=== PATIENT | male | born 1985 | race Caucasian/White ===

== ENCOUNTER 2016-02-23 21:20 | Inpatient (IN) | payer MEDICARE, OTHER, MEDICAID ==
[~2016-02-23] VITALS: Ht 175.3 cm; Wt 86.5 kg
[~2016-02-23 21:20] MED LIST: CHLO100T24 PO; CLON.1 PO; CLON.2 PO; DIVA500T52 PO; DOCU250C91 PO; HYDR25TA PO; SIMV-259 PO; TOPI200T PO; TRIH5TAB2 PO; VITAD1000 PO
[2016-02-23] MEDS ORDERED: TRIHEXYPHENIDYL HCL 5 MG TABLET PO SCH (22:45)
[2016-02-23] MEDS ORDERED: DIVALPROEX SODIUM 500 MG ER TABLET PO SCH (22:45)
[2016-02-24 01:02] LABS: BASOPHILS % (AUTO) 0.5 % (0.0-2.0); EOSINOPHILS % (AUTO) 1.6 % (1.0-6.0); HEMATOCRIT 42.6 % (41-53); HEMOGLOBIN 14.3 g/dL (13.5-17.5); LYMPHOCYTES # (AUTO) 1.7 K/uL (1.0-4.8); LYMPHOCYTES % (AUTO) 24.6 % (22.0-44.0); MEAN CORPUSCULAR HEMOGLOBIN 31.7 pg (26.0-34.0); MEAN CORPUSCULAR HGB CONC 33.6 G/dL (31.0-37.0); MEAN CORPUSCULAR VOLUME 94 fL (80-100); MONOCYTES # (AUTO) 0.8 K/uL (0.1-1.0); MONOCYTES % (AUTO) 11.8 % (2.0-9.0); NEUTROPHILS # (AUTO) 4.2 K/uL (1.8-7.7); NEUTROPHILS % (AUTO) 61.5 % (40.0-70.0); PLATELET COUNT (AUTO) 213 K/uL (150-450); RED BLOOD CELL COUNT(AUTO) 4.52 MIL/uL (4.50-5.90); RED CELL DISTRIBUTION WIDTH 12.9 % (11.5-14.5); WHITE BLOOD COUNT (AUTO) 6.9 K/uL (4.5-11.0)
[2016-02-24 01:11] LABS: ANION GAP 10 mmol/L (8-16); CALCIUM, TOTAL 8.9 mg/dL (8.8-10.5); CARBON DIOXIDE 27 mmol/L (22-29); CHLORIDE 105 mmol/L (98-107); CREATININE 1.04 mg/dL (0.60-1.30); GLOMERULAR FILTR. RATE CALC > 60 mL/min (>60); POTASSIUM 3.8 mmol/L (3.5-5.1); SODIUM SERUM 142 mmol/L (136-145); UREA NITROGEN, BLOOD 13 mg/dL (7-18)
[2016-02-24 01:17] LABS: ALANINE AMINOTRANSFERASE 18 U/L (12-78); ALBUMIN 3.3 g/dL (3.4-5.0); ASPARTATE AMINOTRANSFERASE 16 U/L (15-37); BILIRUBIN,TOTAL 0.3 mg/dL (0.1-1.0); TOTAL PROTEIN, SERUM 7.4 g/dL (6.4-8.2)
[2016-02-24] MEDS: DIVALPROEX SODIUM 500 MG ER TABLET PO SCH ×2 (07:52→20:53)
[2016-02-24] MEDS: ChlorproMAZINE HCL 100 MG TABLET PO SCH (07:52)
[2016-02-24] MEDS: TOPIRAMATE 100 MG TABLET PO SCH ×2 (07:52→17:00)
[2016-02-24] MEDS: TRIHEXYPHENIDYL HCL 5 MG TABLET PO SCH ×2 (08:54→17:00)
[2016-02-24] MEDS ORDERED: ChlorproMAZINE HCL 100 MG TABLET PO SCH (13:00)
[2016-02-24 16:00] VITALS: BP 132/71
[2016-02-24] MEDS ORDERED: TOPIRAMATE 100 MG TABLET PO SCH (17:00)
[2016-02-24] MEDS ORDERED: INFLUENZA VIRUS VACCINE QVS 2016-17 (3YR+)/PF 60 MCG/0.5 ML SYRINGE IM ONE (19:15)
[2016-02-25] MEDS: ChlorproMAZINE HCL 100 MG TABLET PO SCH ×2 (06:53→12:45)
[2016-02-25] MEDS: TOPIRAMATE 100 MG TABLET PO SCH ×2 (06:54→16:43)
[2016-02-25] MEDS: DIVALPROEX SODIUM 500 MG ER TABLET PO SCH ×2 (06:54→20:52)
[2016-02-25 08:13] VITALS: BP 121/91
[2016-02-25] MEDS ORDERED: MAGNESIUM HYDROXIDE SUSPENSION 30 ML UDCUP PO PRN (08:15)
[2016-02-25] MEDS ORDERED: MAG HYDROX/AL HYDROX/SIMETH ES 30 ML SUSPENSION UDCUP PO PRN (08:15)
[2016-02-25] MEDS ORDERED: BACITRACIN 28.4 GM OINTMENT TP PRN (08:15)
[2016-02-25] MEDS ORDERED: PETROLATUM,WHITE 71 GM JELLY TP PRN (08:15)
[2016-02-25] MEDS ORDERED: ALBUTEROL SULFATE HFA 90 MCG/PUFF 8 GM INHALER IH PRN (08:15)
[2016-02-25] MEDS ORDERED: CloNIDine HCL 0.1 MG TABLET PO PRN (08:15)
[2016-02-25] MEDS ORDERED: BENZOCAINE/MENTHOL LOZENGE [8 LOZENGES/PACKET] MM PRN (08:15)
[2016-02-25] MEDS ORDERED: ACETAMINOPHEN 325 MG TABLET PO PRN (08:15)
[2016-02-25] MEDS: TRIHEXYPHENIDYL HCL 5 MG TABLET PO SCH ×2 (08:37→16:43)
[2016-02-25] MEDS: CHOLECALCIFEROL (VIT D3) 1,000 UNITS TABLET PO SCH (08:38)
[2016-02-25 16:30] VITALS: BP 119/74
[2016-02-26] MEDS ORDERED: -PHARMACY VACCINE NOTE- MISC ONE ×2 (05:30)
[2016-02-26] MEDS: ChlorproMAZINE HCL 100 MG TABLET PO SCH ×2 (06:55→13:03)
[2016-02-26] MEDS: TOPIRAMATE 100 MG TABLET PO SCH ×2 (06:56→18:00)
[2016-02-26] MEDS: DIVALPROEX SODIUM 500 MG ER TABLET PO SCH ×2 (06:56→20:08)
[2016-02-26 08:10] VITALS: BP 130/92
[2016-02-26] MEDS: CHOLECALCIFEROL (VIT D3) 1,000 UNITS TABLET PO SCH (08:10)
[2016-02-26] MEDS: TRIHEXYPHENIDYL HCL 5 MG TABLET PO SCH ×2 (08:10→18:00)
[2016-02-26] MEDS: LORazepam 2 MG TABLET PO PRN (08:11)
[2016-02-26 16:30] VITALS: BP 136/86
[2016-02-27] MEDS: ChlorproMAZINE HCL 100 MG TABLET PO SCH ×2 (06:57→13:17)
[2016-02-27] MEDS: TOPIRAMATE 100 MG TABLET PO SCH ×2 (06:57→16:56)
[2016-02-27] MEDS: DIVALPROEX SODIUM 500 MG ER TABLET PO SCH ×2 (06:57→20:25)
[2016-02-27 08:00] VITALS: BP 135/90
[2016-02-27] MEDS: CHOLECALCIFEROL (VIT D3) 1,000 UNITS TABLET PO SCH (08:11)
[2016-02-27] MEDS: TRIHEXYPHENIDYL HCL 5 MG TABLET PO SCH ×2 (08:11→16:56)
[2016-02-27] MEDS: LORazepam 2 MG TABLET PO PRN ×2 (08:11→13:17)
[2016-02-27] MEDS: QUEtiapine FUMARATE 100 MG TABLET PO PRN ×2 (08:11→13:18)
[2016-02-27 16:15] VITALS: BP 145/78
[2016-02-28] MEDS: TOPIRAMATE 100 MG TABLET PO SCH ×2 (06:19→16:18)
[2016-02-28] MEDS: ChlorproMAZINE HCL 100 MG TABLET PO SCH ×2 (06:19→12:44)
[2016-02-28] MEDS: DIVALPROEX SODIUM 500 MG ER TABLET PO SCH ×2 (06:19→20:06)
[2016-02-28 08:00] VITALS: BP 128/72
[2016-02-28] MEDS: LORazepam 2 MG TABLET PO PRN (08:08)
[2016-02-28] MEDS: QUEtiapine FUMARATE 100 MG TABLET PO PRN (08:08)
[2016-02-28] MEDS: CHOLECALCIFEROL (VIT D3) 1,000 UNITS TABLET PO SCH (08:08)
[2016-02-28] MEDS: TRIHEXYPHENIDYL HCL 5 MG TABLET PO SCH ×2 (08:08→16:18)
[2016-02-28 16:00] VITALS: BP 126/77
[2016-02-29] MEDS: DIVALPROEX SODIUM 500 MG ER TABLET PO SCH ×2 (06:13→20:10)
[2016-02-29] MEDS: TOPIRAMATE 100 MG TABLET PO SCH ×2 (06:13→17:11)
[2016-02-29] MEDS: ChlorproMAZINE HCL 100 MG TABLET PO SCH ×2 (06:14→12:35)
[2016-02-29 08:00] VITALS: BP 119/76
[2016-02-29] MEDS: TRIHEXYPHENIDYL HCL 5 MG TABLET PO SCH ×2 (08:16→17:12)
[2016-02-29] MEDS: CHOLECALCIFEROL (VIT D3) 1,000 UNITS TABLET PO SCH (08:16)
[2016-02-29 16:30] VITALS: BP 136/86
[2016-02-29] MEDS: LORazepam 2 MG TABLET PO PRN (17:12)
[2016-03-01] MEDS: DIVALPROEX SODIUM 500 MG ER TABLET PO SCH ×2 (06:58→22:08)
[2016-03-01] MEDS: ChlorproMAZINE HCL 100 MG TABLET PO SCH ×2 (06:58→12:17)
[2016-03-01] MEDS: TOPIRAMATE 100 MG TABLET PO SCH ×2 (06:59→17:49)
[2016-03-01 08:00] VITALS: BP 123/85
[2016-03-01] MEDS: QUEtiapine FUMARATE 100 MG TABLET PO PRN (08:22)
[2016-03-01] MEDS: TRIHEXYPHENIDYL HCL 5 MG TABLET PO SCH ×2 (08:22→17:49)
[2016-03-01] MEDS: LORazepam 2 MG TABLET PO PRN (08:22)
[2016-03-01] MEDS: CHOLECALCIFEROL (VIT D3) 1,000 UNITS TABLET PO SCH (08:22)
[2016-03-01 16:00] VITALS: BP 125/78
[2016-03-02] MEDS: TOPIRAMATE 100 MG TABLET PO SCH ×2 (06:16→17:00)
[2016-03-02] MEDS: DIVALPROEX SODIUM 500 MG ER TABLET PO SCH ×2 (06:16→21:00)
[2016-03-02] MEDS: ChlorproMAZINE HCL 100 MG TABLET PO SCH ×2 (06:17→13:09)
[2016-03-02 08:00] VITALS: BP 129/84
[2016-03-02] MEDS: CHOLECALCIFEROL (VIT D3) 1,000 UNITS TABLET PO SCH (08:16)
[2016-03-02] MEDS: TRIHEXYPHENIDYL HCL 5 MG TABLET PO SCH ×2 (08:16→17:00)
[2016-03-02] MEDS ORDERED: DiphenhydrAMINE HCL 50 MG/ML VIAL IM ONE (17:00)
[2016-03-02] MEDS ORDERED: LORazepam 2 MG/ML VIAL IM ONE (17:00)
[2016-03-02 18:35] VITALS: BP 124/83
[2016-03-03] MEDS: ChlorproMAZINE HCL 100 MG TABLET PO SCH ×2 (06:45→12:50)
[2016-03-03] MEDS: TOPIRAMATE 100 MG TABLET PO SCH ×2 (06:45→16:11)
[2016-03-03] MEDS: DIVALPROEX SODIUM 500 MG ER TABLET PO SCH ×2 (06:45→20:55)
[2016-03-03] MEDS: QUEtiapine FUMARATE 100 MG TABLET PO PRN (07:46)
[2016-03-03 08:00] VITALS: BP 107/63
[2016-03-03] MEDS: TRIHEXYPHENIDYL HCL 5 MG TABLET PO SCH ×2 (08:00→16:11)
[2016-03-03] MEDS: CHOLECALCIFEROL (VIT D3) 1,000 UNITS TABLET PO SCH (08:00)
[2016-03-03] MEDS ORDERED: LORazepam 2 MG/ML VIAL IM ONE (08:00)
[2016-03-03] MEDS ORDERED: DiphenhydrAMINE HCL 50 MG/ML VIAL IM ONE (08:00)
[2016-03-03] MEDS: IBUPROFEN 600 MG TABLET PO PRN (09:44)
[2016-03-03 16:26] VITALS: BP 116/78
[2016-03-04 06:12] VITALS: BP 112/76
[2016-03-04] MEDS: LOPERAMIDE HCL 2 MG CAPSULE PO PRN ×2 (06:31→16:26)
[2016-03-04] MEDS: LORazepam 2 MG TABLET PO PRN ×2 (06:31→16:26)
[2016-03-04] MEDS: ChlorproMAZINE HCL 100 MG TABLET PO SCH ×2 (06:47→12:34)
[2016-03-04] MEDS: DIVALPROEX SODIUM 500 MG ER TABLET PO SCH ×2 (06:47→21:01)
[2016-03-04] MEDS: TOPIRAMATE 100 MG TABLET PO SCH ×2 (06:48→16:27)
[2016-03-04 08:30] VITALS: BP 114/93
[2016-03-04] MEDS: CHOLECALCIFEROL (VIT D3) 1,000 UNITS TABLET PO SCH (09:06)
[2016-03-04] MEDS: TRIHEXYPHENIDYL HCL 5 MG TABLET PO SCH ×2 (09:07→16:26)
[2016-03-04] MEDS: ONDANSETRON HCL 4 MG TABLET PO PRN (11:14)
[2016-03-04 16:00] VITALS: BP 111/70
[2016-03-04] MEDS: QUEtiapine FUMARATE 100 MG TABLET PO PRN (16:27)
[2016-03-05] MEDS: LORazepam 2 MG TABLET PO PRN ×2 (00:04→08:11)
[2016-03-05] MEDS: LOPERAMIDE HCL 2 MG CAPSULE PO PRN ×4 (00:04→20:21)
[2016-03-05 00:41] VITALS: BP 135/83
[2016-03-05] MEDS: ChlorproMAZINE HCL 100 MG TABLET PO SCH ×2 (06:53→13:33)
[2016-03-05] MEDS: TOPIRAMATE 100 MG TABLET PO SCH ×2 (06:53→16:15)
[2016-03-05] MEDS: DIVALPROEX SODIUM 500 MG ER TABLET PO SCH ×2 (06:53→20:21)
[2016-03-05] MEDS: CHOLECALCIFEROL (VIT D3) 1,000 UNITS TABLET PO SCH (08:11)
[2016-03-05] MEDS: TRIHEXYPHENIDYL HCL 5 MG TABLET PO SCH ×2 (08:11→16:15)
[2016-03-05 08:12] VITALS: BP 117/77
[2016-03-05] MEDS: ONDANSETRON HCL 4 MG TABLET PO PRN (14:47)
[2016-03-05 22:17] VITALS: BP 123/81
[2016-03-06] MEDS: TOPIRAMATE 100 MG TABLET PO SCH ×2 (06:47→17:22)
[2016-03-06] MEDS: DIVALPROEX SODIUM 500 MG ER TABLET PO SCH ×2 (06:47→20:41)
[2016-03-06] MEDS: ChlorproMAZINE HCL 100 MG TABLET PO SCH ×2 (06:47→13:01)
[2016-03-06] MEDS: LORazepam 2 MG TABLET PO PRN ×2 (08:36→13:01)
[2016-03-06] MEDS: CHOLECALCIFEROL (VIT D3) 1,000 UNITS TABLET PO SCH (08:36)
[2016-03-06] MEDS: TRIHEXYPHENIDYL HCL 5 MG TABLET PO SCH ×2 (08:37→17:23)
[2016-03-06 08:52] VITALS: BP 113/72
[2016-03-06 18:32] VITALS: BP 134/84
[2016-03-07] MEDS: DIVALPROEX SODIUM 500 MG ER TABLET PO SCH ×2 (06:25→20:37)
[2016-03-07] MEDS: TOPIRAMATE 100 MG TABLET PO SCH ×2 (06:30→16:04)
[2016-03-07] MEDS: ChlorproMAZINE HCL 100 MG TABLET PO SCH ×2 (06:30→12:34)
[2016-03-07] MEDS: CHOLECALCIFEROL (VIT D3) 1,000 UNITS TABLET PO SCH (08:01)
[2016-03-07] MEDS: TRIHEXYPHENIDYL HCL 5 MG TABLET PO SCH ×2 (08:01→16:04)
[2016-03-07 08:15] VITALS: BP 107/75
[2016-03-07] MEDS: LOPERAMIDE HCL 2 MG CAPSULE PO PRN (09:39)
[2016-03-07 16:00] VITALS: BP 123/77
[2016-03-08 06:20] VITALS: BP 118/73
[2016-03-08] MEDS: ChlorproMAZINE HCL 100 MG TABLET PO SCH ×2 (06:29→12:46)
[2016-03-08] MEDS: DIVALPROEX SODIUM 500 MG ER TABLET PO SCH ×2 (06:30→20:49)
[2016-03-08] MEDS: TOPIRAMATE 100 MG TABLET PO SCH ×2 (06:31→16:25)
[2016-03-08] MEDS: TRIHEXYPHENIDYL HCL 5 MG TABLET PO SCH ×2 (08:20→16:25)
[2016-03-08] MEDS: CHOLECALCIFEROL (VIT D3) 1,000 UNITS TABLET PO SCH (08:20)
[2016-03-08 13:25] VITALS: BP 124/73
[2016-03-08 16:00] VITALS: BP 138/92
[2016-03-09] MEDS: DIVALPROEX SODIUM 500 MG ER TABLET PO SCH ×2 (06:39→21:03)
[2016-03-09] MEDS: TOPIRAMATE 100 MG TABLET PO SCH ×2 (06:39→16:16)
[2016-03-09] MEDS: ChlorproMAZINE HCL 100 MG TABLET PO SCH ×2 (06:39→12:25)
[2016-03-09 08:05] VITALS: BP 123/87
[2016-03-09] MEDS: TRIHEXYPHENIDYL HCL 5 MG TABLET PO SCH ×2 (08:14→16:16)
[2016-03-09] MEDS: CHOLECALCIFEROL (VIT D3) 1,000 UNITS TABLET PO SCH (08:14)
[2016-03-09] MEDS: LORazepam 2 MG TABLET PO PRN (12:25)
[2016-03-09 16:00] VITALS: BP 127/87
[2016-03-10] MEDS: ChlorproMAZINE HCL 100 MG TABLET PO SCH ×2 (06:35→13:36)
[2016-03-10] MEDS: DIVALPROEX SODIUM 500 MG ER TABLET PO SCH ×2 (06:35→20:53)
[2016-03-10] MEDS: TOPIRAMATE 100 MG TABLET PO SCH ×2 (06:36→16:09)
[2016-03-10 08:05] VITALS: BP 130/94
[2016-03-10] MEDS: CHOLECALCIFEROL (VIT D3) 1,000 UNITS TABLET PO SCH (08:58)
[2016-03-10] MEDS: TRIHEXYPHENIDYL HCL 5 MG TABLET PO SCH ×2 (08:59→16:09)
[2016-03-10] MEDS: QUEtiapine FUMARATE 100 MG TABLET PO PRN (16:03)
[2016-03-10] MEDS: LORazepam 2 MG TABLET PO PRN (16:03)
[2016-03-10 17:08] VITALS: BP 131/88
[2016-03-11] MEDS: ChlorproMAZINE HCL 100 MG TABLET PO SCH ×2 (06:45→12:18)
[2016-03-11] MEDS: DIVALPROEX SODIUM 500 MG ER TABLET PO SCH ×2 (06:46→20:27)
[2016-03-11] MEDS: TOPIRAMATE 100 MG TABLET PO SCH ×2 (06:46→17:00)
[2016-03-11 08:08] VITALS: BP 129/88
[2016-03-11] MEDS: CHOLECALCIFEROL (VIT D3) 1,000 UNITS TABLET PO SCH (08:50)
[2016-03-11] MEDS: LORazepam 2 MG TABLET PO PRN (08:50)
[2016-03-11] MEDS: TRIHEXYPHENIDYL HCL 5 MG TABLET PO SCH ×2 (08:50→17:00)
[2016-03-11 18:19] VITALS: BP 134/82
[2016-03-12] MEDS: TOPIRAMATE 100 MG TABLET PO SCH ×2 (06:29→16:11)
[2016-03-12] MEDS: DIVALPROEX SODIUM 500 MG ER TABLET PO SCH ×2 (06:29→21:00)
[2016-03-12] MEDS: ChlorproMAZINE HCL 100 MG TABLET PO SCH ×2 (06:29→13:00)
[2016-03-12 08:00] VITALS: BP 129/80
[2016-03-12] MEDS: TRIHEXYPHENIDYL HCL 5 MG TABLET PO SCH ×2 (08:40→16:11)
[2016-03-12] MEDS: CHOLECALCIFEROL (VIT D3) 1,000 UNITS TABLET PO SCH (08:40)
[2016-03-12] MEDS ORDERED: DiphenhydrAMINE HCL 50 MG/ML VIAL IM ONE (09:30)
[2016-03-12] MEDS ORDERED: LORazepam 2 MG/ML VIAL IM ONE (09:30)
[2016-03-12 16:00] VITALS: BP 133/95
[2016-03-13] MEDS: DIVALPROEX SODIUM 500 MG ER TABLET PO SCH ×2 (06:29→20:38)
[2016-03-13] MEDS: ChlorproMAZINE HCL 100 MG TABLET PO SCH ×2 (06:29→13:21)
[2016-03-13] MEDS: TOPIRAMATE 100 MG TABLET PO SCH ×2 (06:30→16:21)
[2016-03-13] MEDS: TRIHEXYPHENIDYL HCL 5 MG TABLET PO SCH ×2 (08:08→16:21)
[2016-03-13] MEDS: LORazepam 2 MG TABLET PO PRN (08:08)
[2016-03-13] MEDS: CHOLECALCIFEROL (VIT D3) 1,000 UNITS TABLET PO SCH (08:08)
[2016-03-13 08:09] VITALS: BP 105/64
[2016-03-13] MEDS: QUEtiapine FUMARATE 100 MG TABLET PO PRN (08:14)
[2016-03-13 16:55] VITALS: BP 127/77
[2016-03-14] MEDS: DIVALPROEX SODIUM 500 MG ER TABLET PO SCH ×2 (06:23→20:43)
[2016-03-14] MEDS: ChlorproMAZINE HCL 100 MG TABLET PO SCH ×2 (06:23→12:11)
[2016-03-14] MEDS: TOPIRAMATE 100 MG TABLET PO SCH ×2 (06:24→17:05)
[2016-03-14 08:18] VITALS: BP 118/80
[2016-03-14] MEDS: TRIHEXYPHENIDYL HCL 5 MG TABLET PO SCH ×2 (08:49→17:05)
[2016-03-14] MEDS: CHOLECALCIFEROL (VIT D3) 1,000 UNITS TABLET PO SCH (08:49)
[2016-03-14 16:15] VITALS: BP 125/81
[2016-03-15] MEDS: LORazepam 2 MG TABLET PO PRN (02:42)
[2016-03-15] MEDS: QUEtiapine FUMARATE 100 MG TABLET PO PRN (02:42)
[2016-03-15 02:47] VITALS: BP 132/72
[2016-03-15] MEDS: DIVALPROEX SODIUM 500 MG ER TABLET PO SCH ×2 (07:05→21:03)
[2016-03-15] MEDS: ChlorproMAZINE HCL 100 MG TABLET PO SCH ×2 (07:06→13:22)
[2016-03-15] MEDS: TOPIRAMATE 100 MG TABLET PO SCH ×2 (07:06→18:16)
[2016-03-15 08:08] VITALS: BP 115/75
[2016-03-15] MEDS: CHOLECALCIFEROL (VIT D3) 1,000 UNITS TABLET PO SCH (10:34)
[2016-03-15] MEDS: TRIHEXYPHENIDYL HCL 5 MG TABLET PO SCH ×2 (10:35→18:17)
[2016-03-16] MEDS: TOPIRAMATE 100 MG TABLET PO SCH ×2 (06:54→16:19)
[2016-03-16] MEDS: ChlorproMAZINE HCL 100 MG TABLET PO SCH ×2 (06:54→13:04)
[2016-03-16] MEDS: DIVALPROEX SODIUM 500 MG ER TABLET PO SCH ×2 (06:54→20:21)
[2016-03-16 08:10] VITALS: BP 116/79
[2016-03-16] MEDS: CHOLECALCIFEROL (VIT D3) 1,000 UNITS TABLET PO SCH (08:17)
[2016-03-16] MEDS: TRIHEXYPHENIDYL HCL 5 MG TABLET PO SCH ×2 (08:17→16:19)
[2016-03-16] MEDS: LORazepam 2 MG TABLET PO PRN (14:19)
[2016-03-16] MEDS: QUEtiapine FUMARATE 100 MG TABLET PO PRN (14:19)
[2016-03-16 16:05] VITALS: BP 124/84
[2016-03-17] MEDS: DIVALPROEX SODIUM 500 MG ER TABLET PO SCH ×2 (06:47→20:46)
[2016-03-17] MEDS: ChlorproMAZINE HCL 100 MG TABLET PO SCH ×2 (06:48→12:23)
[2016-03-17] MEDS: TOPIRAMATE 100 MG TABLET PO SCH ×2 (06:48→16:45)
[2016-03-17 08:14] VITALS: BP 135/75
[2016-03-17] MEDS: TRIHEXYPHENIDYL HCL 5 MG TABLET PO SCH ×2 (10:10→16:45)
[2016-03-17] MEDS: HALOPERIDOL 10 MG TABLET PO PRN (10:10)
[2016-03-17] MEDS: CHOLECALCIFEROL (VIT D3) 1,000 UNITS TABLET PO SCH (10:10)
[2016-03-17] MEDS: LORazepam 2 MG TABLET PO PRN (10:10)
[2016-03-17] MEDS: DIVALPROEX SODIUM 500 MG DR TABLET PO SCH (12:22)
[2016-03-17 16:36] VITALS: BP 131/96
[2016-03-18] MEDS: ChlorproMAZINE HCL 100 MG TABLET PO SCH ×2 (06:38→12:22)
[2016-03-18] MEDS: DIVALPROEX SODIUM 500 MG ER TABLET PO SCH ×2 (06:38→21:39)
[2016-03-18] MEDS: TOPIRAMATE 100 MG TABLET PO SCH ×2 (06:38→16:38)
[2016-03-18] MEDS: HALOPERIDOL 10 MG TABLET PO PRN (07:34)
[2016-03-18] MEDS: TRIHEXYPHENIDYL HCL 5 MG TABLET PO SCH ×2 (07:34→16:38)
[2016-03-18] MEDS: LORazepam 2 MG TABLET PO PRN (07:34)
[2016-03-18] MEDS: CHOLECALCIFEROL (VIT D3) 1,000 UNITS TABLET PO SCH (07:34)
[2016-03-18 08:00] VITALS: BP 117/76
[2016-03-18] MEDS: DIVALPROEX SODIUM 500 MG DR TABLET PO SCH (12:22)
[2016-03-18 16:00] VITALS: BP 121/78
[2016-03-19] MEDS: DIVALPROEX SODIUM 500 MG ER TABLET PO SCH ×2 (06:48→20:52)
[2016-03-19] MEDS: ChlorproMAZINE HCL 100 MG TABLET PO SCH ×2 (06:48→12:48)
[2016-03-19] MEDS: TOPIRAMATE 100 MG TABLET PO SCH ×2 (06:48→17:01)
[2016-03-19 08:07] VITALS: BP 120/81
[2016-03-19] MEDS: TRIHEXYPHENIDYL HCL 5 MG TABLET PO SCH ×2 (08:11→17:01)
[2016-03-19] MEDS: CHOLECALCIFEROL (VIT D3) 1,000 UNITS TABLET PO SCH (08:11)
[2016-03-19] MEDS: DIVALPROEX SODIUM 500 MG DR TABLET PO SCH (12:48)
[2016-03-19 16:09] VITALS: BP 123/84
[2016-03-20] MEDS: LORazepam 2 MG TABLET PO PRN (01:02)
[2016-03-20] MEDS: HALOPERIDOL 10 MG TABLET PO PRN (01:03)
[2016-03-20] MEDS: DIVALPROEX SODIUM 500 MG ER TABLET PO SCH ×2 (07:23→21:12)
[2016-03-20] MEDS: ChlorproMAZINE HCL 100 MG TABLET PO SCH ×2 (07:23→13:10)
[2016-03-20] MEDS: TOPIRAMATE 100 MG TABLET PO SCH ×2 (07:23→16:15)
[2016-03-20] MEDS: CHOLECALCIFEROL (VIT D3) 1,000 UNITS TABLET PO SCH (08:35)
[2016-03-20] MEDS: TRIHEXYPHENIDYL HCL 5 MG TABLET PO SCH ×2 (08:36→16:16)
[2016-03-20 08:58] VITALS: BP 125/82
[2016-03-20] MEDS: DIVALPROEX SODIUM 500 MG DR TABLET PO SCH (13:11)
[2016-03-20 16:20] VITALS: BP 128/68
[2016-03-21] MEDS: ChlorproMAZINE HCL 100 MG TABLET PO SCH ×2 (06:58→12:07)
[2016-03-21] MEDS: DIVALPROEX SODIUM 500 MG ER TABLET PO SCH ×2 (06:58→20:22)
[2016-03-21] MEDS: TOPIRAMATE 100 MG TABLET PO SCH ×2 (06:59→16:16)
[2016-03-21 08:08] VITALS: BP 126/76
[2016-03-21] MEDS: CHOLECALCIFEROL (VIT D3) 1,000 UNITS TABLET PO SCH (08:30)
[2016-03-21] MEDS: TRIHEXYPHENIDYL HCL 5 MG TABLET PO SCH ×2 (08:30→16:16)
[2016-03-21] MEDS: LORazepam 2 MG TABLET PO PRN (08:31)
[2016-03-21] MEDS: DIVALPROEX SODIUM 500 MG DR TABLET PO SCH (12:07)
[2016-03-21 16:56] VITALS: BP 127/85
[2016-03-22] MEDS: ChlorproMAZINE HCL 100 MG TABLET PO SCH ×2 (06:45→12:57)
[2016-03-22] MEDS: TOPIRAMATE 100 MG TABLET PO SCH ×2 (06:46→16:09)
[2016-03-22] MEDS: DIVALPROEX SODIUM 500 MG ER TABLET PO SCH ×2 (06:46→20:43)
[2016-03-22] MEDS: LORazepam 2 MG TABLET PO PRN (08:05)
[2016-03-22] MEDS: CHOLECALCIFEROL (VIT D3) 1,000 UNITS TABLET PO SCH (08:05)
[2016-03-22] MEDS: TRIHEXYPHENIDYL HCL 5 MG TABLET PO SCH ×2 (08:05→16:09)
[2016-03-22 09:22] VITALS: BP 113/64
[2016-03-22] MEDS: DIVALPROEX SODIUM 500 MG DR TABLET PO SCH (12:56)
[2016-03-22 16:00] VITALS: BP 120/78
[2016-03-23] MEDS: ChlorproMAZINE HCL 100 MG TABLET PO SCH ×2 (06:57→12:47)
[2016-03-23] MEDS: TOPIRAMATE 100 MG TABLET PO SCH ×2 (06:57→16:10)
[2016-03-23] MEDS: DIVALPROEX SODIUM 500 MG ER TABLET PO SCH ×2 (06:58→20:04)
[2016-03-23] MEDS: TRIHEXYPHENIDYL HCL 5 MG TABLET PO SCH ×2 (08:26→16:10)
[2016-03-23] MEDS: CHOLECALCIFEROL (VIT D3) 1,000 UNITS TABLET PO SCH (08:26)
[2016-03-23] MEDS: LORazepam 2 MG TABLET PO PRN (08:26)
[2016-03-23] MEDS: HALOPERIDOL 10 MG TABLET PO PRN (08:26)
[2016-03-23 08:35] VITALS: BP 115/67
[2016-03-23] MEDS: DIVALPROEX SODIUM 500 MG DR TABLET PO SCH (12:46)
[2016-03-23 16:53] VITALS: BP 125/78
[2016-03-24] MEDS: ChlorproMAZINE HCL 100 MG TABLET PO SCH ×2 (06:37→12:32)
[2016-03-24] MEDS: DIVALPROEX SODIUM 500 MG ER TABLET PO SCH ×2 (06:38→21:12)
[2016-03-24] MEDS: TOPIRAMATE 100 MG TABLET PO SCH ×2 (06:38→16:15)
[2016-03-24] MEDS: CHOLECALCIFEROL (VIT D3) 1,000 UNITS TABLET PO SCH (08:02)
[2016-03-24] MEDS: TRIHEXYPHENIDYL HCL 5 MG TABLET PO SCH ×2 (08:03→16:15)
[2016-03-24 08:51] VITALS: BP 113/90
[2016-03-24] MEDS: DIVALPROEX SODIUM 500 MG DR TABLET PO SCH (12:31)
[2016-03-24 16:10] VITALS: BP 112/80
[2016-03-25] MEDS: DIVALPROEX SODIUM 500 MG ER TABLET PO SCH ×2 (06:35→22:23)
[2016-03-25] MEDS: ChlorproMAZINE HCL 100 MG TABLET PO SCH ×2 (06:35→12:58)
[2016-03-25] MEDS: TOPIRAMATE 100 MG TABLET PO SCH ×2 (06:35→17:29)
[2016-03-25] MEDS: TRIHEXYPHENIDYL HCL 5 MG TABLET PO SCH ×2 (09:09→17:29)
[2016-03-25] MEDS: CHOLECALCIFEROL (VIT D3) 1,000 UNITS TABLET PO SCH (09:10)
[2016-03-25 09:20] VITALS: BP 139/86
[2016-03-25] MEDS: DIVALPROEX SODIUM 500 MG DR TABLET PO SCH (12:58)
[2016-03-25] MEDS: LORazepam 2 MG TABLET PO PRN (14:57)
[2016-03-25] MEDS: HALOPERIDOL 10 MG TABLET PO PRN (14:57)
[2016-03-25 16:00] VITALS: BP 109/75
[2016-03-26] MEDS: DIVALPROEX SODIUM 500 MG ER TABLET PO SCH ×2 (06:59→20:16)
[2016-03-26] MEDS: TOPIRAMATE 100 MG TABLET PO SCH ×2 (07:00→16:11)
[2016-03-26] MEDS: ChlorproMAZINE HCL 100 MG TABLET PO SCH ×2 (07:00→12:30)
[2016-03-26 08:08] VITALS: BP 130/77
[2016-03-26] MEDS: TRIHEXYPHENIDYL HCL 5 MG TABLET PO SCH ×2 (08:14→16:10)
[2016-03-26] MEDS: LORazepam 2 MG TABLET PO PRN (08:14)
[2016-03-26] MEDS: CHOLECALCIFEROL (VIT D3) 1,000 UNITS TABLET PO SCH (08:14)
[2016-03-26] MEDS: HALOPERIDOL 10 MG TABLET PO PRN (08:14)
[2016-03-26] MEDS: DIVALPROEX SODIUM 500 MG DR TABLET PO SCH (12:30)
[2016-03-26 16:00] VITALS: BP 136/89
[2016-03-27] MEDS: TOPIRAMATE 100 MG TABLET PO SCH ×2 (06:44→16:40)
[2016-03-27] MEDS: DIVALPROEX SODIUM 500 MG ER TABLET PO SCH ×2 (06:44→21:05)
[2016-03-27] MEDS: ChlorproMAZINE HCL 100 MG TABLET PO SCH ×2 (06:44→12:22)
[2016-03-27 08:01] VITALS: BP 112/77
[2016-03-27] MEDS: CHOLECALCIFEROL (VIT D3) 1,000 UNITS TABLET PO SCH (08:12)
[2016-03-27] MEDS: TRIHEXYPHENIDYL HCL 5 MG TABLET PO SCH ×2 (08:13→16:40)
[2016-03-27] MEDS: LORazepam 2 MG TABLET PO PRN ×2 (08:13→21:05)
[2016-03-27] MEDS: DIVALPROEX SODIUM 500 MG DR TABLET PO SCH (12:23)
[2016-03-27 16:55] VITALS: BP 101/69
[2016-03-27] MEDS: HALOPERIDOL 10 MG TABLET PO PRN (19:32)
[2016-03-28] MEDS: TOPIRAMATE 100 MG TABLET PO SCH ×2 (06:27→17:41)
[2016-03-28] MEDS: DIVALPROEX SODIUM 500 MG ER TABLET PO SCH ×2 (06:27→21:02)
[2016-03-28] MEDS: ChlorproMAZINE HCL 100 MG TABLET PO SCH ×2 (06:36→12:51)
[2016-03-28] MEDS: CHOLECALCIFEROL (VIT D3) 1,000 UNITS TABLET PO SCH (08:21)
[2016-03-28] MEDS: TRIHEXYPHENIDYL HCL 5 MG TABLET PO SCH ×2 (08:22→17:41)
[2016-03-28 09:00] VITALS: BP 140/89
[2016-03-28] MEDS: DIVALPROEX SODIUM 500 MG DR TABLET PO SCH (12:47)
[2016-03-29] MEDS: ChlorproMAZINE HCL 100 MG TABLET PO SCH ×2 (06:56→13:33)
[2016-03-29] MEDS: DIVALPROEX SODIUM 500 MG ER TABLET PO SCH ×2 (06:56→22:03)
[2016-03-29] MEDS: TOPIRAMATE 100 MG TABLET PO SCH ×2 (06:58→17:05)
[2016-03-29] MEDS: CHOLECALCIFEROL (VIT D3) 1,000 UNITS TABLET PO SCH (08:06)
[2016-03-29] MEDS: TRIHEXYPHENIDYL HCL 5 MG TABLET PO SCH ×2 (08:08→17:04)
[2016-03-29 09:00] VITALS: BP 130/89
[2016-03-29] MEDS: DIVALPROEX SODIUM 500 MG DR TABLET PO SCH (13:35)
[2016-03-29 16:00] VITALS: BP 122/81
[2016-03-30] MEDS: ChlorproMAZINE HCL 100 MG TABLET PO SCH ×2 (06:58→12:34)
[2016-03-30] MEDS: DIVALPROEX SODIUM 500 MG ER TABLET PO SCH ×2 (06:58→21:39)
[2016-03-30] MEDS: TOPIRAMATE 100 MG TABLET PO SCH ×2 (06:58→16:04)
[2016-03-30] MEDS: CHOLECALCIFEROL (VIT D3) 1,000 UNITS TABLET PO SCH (08:12)
[2016-03-30] MEDS: TRIHEXYPHENIDYL HCL 5 MG TABLET PO SCH ×2 (08:12→16:04)
[2016-03-30 08:26] VITALS: BP 124/86
[2016-03-30] MEDS: DIVALPROEX SODIUM 500 MG DR TABLET PO SCH (14:57)
[2016-03-30 16:00] VITALS: BP 131/79
[2016-03-31] MEDS: ChlorproMAZINE HCL 100 MG TABLET PO SCH ×2 (06:57→13:07)
[2016-03-31] MEDS: TOPIRAMATE 100 MG TABLET PO SCH ×2 (06:57→16:43)
[2016-03-31] MEDS: DIVALPROEX SODIUM 500 MG ER TABLET PO SCH ×2 (06:58→21:25)
[2016-03-31] MEDS: CHOLECALCIFEROL (VIT D3) 1,000 UNITS TABLET PO SCH (09:11)
[2016-03-31] MEDS: TRIHEXYPHENIDYL HCL 5 MG TABLET PO SCH ×2 (09:11→16:43)
[2016-03-31 09:26] VITALS: BP 125/77
[2016-03-31] MEDS: DIVALPROEX SODIUM 500 MG DR TABLET PO SCH (13:08)
[2016-03-31 16:00] VITALS: BP 124/81
[2016-04-01] MEDS: DIVALPROEX SODIUM 500 MG ER TABLET PO SCH ×2 (06:53→22:32)
[2016-04-01] MEDS: TOPIRAMATE 100 MG TABLET PO SCH ×2 (06:53→16:10)
[2016-04-01] MEDS: ChlorproMAZINE HCL 100 MG TABLET PO SCH ×2 (06:53→12:30)
[2016-04-01] MEDS: TRIHEXYPHENIDYL HCL 5 MG TABLET PO SCH ×2 (08:00→16:09)
[2016-04-01] MEDS: CHOLECALCIFEROL (VIT D3) 1,000 UNITS TABLET PO SCH (08:00)
[2016-04-01 08:05] VITALS: BP 146/98
[2016-04-01] MEDS: LORazepam 2 MG TABLET PO PRN (10:02)
[2016-04-01] MEDS: DIVALPROEX SODIUM 500 MG DR TABLET PO SCH (12:30)
[2016-04-01 16:00] VITALS: BP 121/71
[2016-04-02] MEDS: ChlorproMAZINE HCL 100 MG TABLET PO SCH ×2 (06:51→13:14)
[2016-04-02] MEDS: TOPIRAMATE 100 MG TABLET PO SCH ×2 (06:51→17:38)
[2016-04-02] MEDS: DIVALPROEX SODIUM 500 MG ER TABLET PO SCH ×2 (06:52→20:35)
[2016-04-02 08:05] VITALS: BP 124/86
[2016-04-02] MEDS: CHOLECALCIFEROL (VIT D3) 1,000 UNITS TABLET PO SCH (09:13)
[2016-04-02] MEDS: TRIHEXYPHENIDYL HCL 5 MG TABLET PO SCH ×2 (09:13→17:38)
[2016-04-02] MEDS: DIVALPROEX SODIUM 500 MG DR TABLET PO SCH (13:14)
[2016-04-02 19:39] VITALS: BP 122/84
[2016-04-03] MEDS: ZOLPIDEM TARTRATE 10 MG TABLET PO PRN (01:37)
[2016-04-03] MEDS: LORazepam 2 MG TABLET PO PRN (01:38)
[2016-04-03] MEDS: ChlorproMAZINE HCL 100 MG TABLET PO SCH ×2 (06:47→12:53)
[2016-04-03] MEDS: DIVALPROEX SODIUM 500 MG ER TABLET PO SCH ×2 (06:47→20:30)
[2016-04-03] MEDS: TOPIRAMATE 100 MG TABLET PO SCH ×2 (06:47→16:17)
[2016-04-03 08:05] VITALS: BP 120/71
[2016-04-03] MEDS: TRIHEXYPHENIDYL HCL 5 MG TABLET PO SCH ×2 (08:49→16:16)
[2016-04-03] MEDS: CHOLECALCIFEROL (VIT D3) 1,000 UNITS TABLET PO SCH (08:50)
[2016-04-03] MEDS: DIVALPROEX SODIUM 500 MG DR TABLET PO SCH (12:53)
[2016-04-03 16:10] VITALS: BP 118/68
[2016-04-04] MEDS: ChlorproMAZINE HCL 100 MG TABLET PO SCH ×2 (06:17→13:00)
[2016-04-04] MEDS: DIVALPROEX SODIUM 500 MG ER TABLET PO SCH ×2 (06:17→20:43)
[2016-04-04] MEDS: TOPIRAMATE 100 MG TABLET PO SCH ×2 (06:17→16:51)
[2016-04-04 08:08] VITALS: BP 118/74
[2016-04-04] MEDS: TRIHEXYPHENIDYL HCL 5 MG TABLET PO SCH ×2 (08:16→16:51)
[2016-04-04] MEDS: CHOLECALCIFEROL (VIT D3) 1,000 UNITS TABLET PO SCH (08:16)
[2016-04-04] MEDS: DIVALPROEX SODIUM 500 MG DR TABLET PO SCH (13:00)
[2016-04-04 16:25] VITALS: BP 124/87
[2016-04-05] MEDS: DIVALPROEX SODIUM 500 MG ER TABLET PO SCH ×2 (06:29→22:46)
[2016-04-05] MEDS: TOPIRAMATE 100 MG TABLET PO SCH ×2 (06:29→16:38)
[2016-04-05] MEDS: ChlorproMAZINE HCL 100 MG TABLET PO SCH ×2 (06:29→13:08)
[2016-04-05] MEDS: HALOPERIDOL 10 MG TABLET PO PRN (09:20)
[2016-04-05] MEDS: LORazepam 2 MG TABLET PO PRN (09:20)
[2016-04-05] MEDS ORDERED: LORazepam 2 MG/ML VIAL ONE (09:25)
[2016-04-05] MEDS ORDERED: DiphenhydrAMINE HCL 50 MG/ML VIAL ONE (09:25)
[2016-04-05] MEDS ORDERED: DiphenhydrAMINE HCL 50 MG/ML VIAL IM ONE (09:30)
[2016-04-05] MEDS ORDERED: LORazepam 2 MG/ML VIAL IM ONE (09:30)
[2016-04-05] MEDS: TRIHEXYPHENIDYL HCL 5 MG TABLET PO SCH ×2 (10:11→16:39)
[2016-04-05] MEDS: CHOLECALCIFEROL (VIT D3) 1,000 UNITS TABLET PO SCH (10:13)
[2016-04-05] MEDS: DIVALPROEX SODIUM 500 MG DR TABLET PO SCH (13:08)
[2016-04-05 16:00] VITALS: BP 132/91
[2016-04-06] MEDS: ChlorproMAZINE HCL 100 MG TABLET PO SCH ×2 (06:54→13:48)
[2016-04-06] MEDS: DIVALPROEX SODIUM 500 MG ER TABLET PO SCH ×2 (06:54→20:33)
[2016-04-06] MEDS: TOPIRAMATE 100 MG TABLET PO SCH ×2 (06:55→16:11)
[2016-04-06] MEDS: LORazepam 2 MG TABLET PO PRN (08:01)
[2016-04-06] MEDS: HALOPERIDOL 10 MG TABLET PO PRN (08:01)
[2016-04-06] MEDS: CHOLECALCIFEROL (VIT D3) 1,000 UNITS TABLET PO SCH (08:01)
[2016-04-06] MEDS: TRIHEXYPHENIDYL HCL 5 MG TABLET PO SCH ×2 (08:01→16:11)
[2016-04-06 08:30] VITALS: BP 110/68
[2016-04-06] MEDS: DIVALPROEX SODIUM 500 MG DR TABLET PO SCH (13:48)
[2016-04-06 18:19] VITALS: BP 118/71
[2016-04-07] MEDS: DIVALPROEX SODIUM 500 MG ER TABLET PO SCH ×2 (06:54→20:47)
[2016-04-07] MEDS: ChlorproMAZINE HCL 100 MG TABLET PO SCH ×2 (06:54→12:57)
[2016-04-07] MEDS: TOPIRAMATE 100 MG TABLET PO SCH ×2 (06:54→16:47)
[2016-04-07] MEDS: LORazepam 2 MG TABLET PO PRN (08:34)
[2016-04-07] MEDS: CHOLECALCIFEROL (VIT D3) 1,000 UNITS TABLET PO SCH (08:34)
[2016-04-07] MEDS: TRIHEXYPHENIDYL HCL 5 MG TABLET PO SCH ×2 (08:34→16:47)
[2016-04-07] MEDS: DIVALPROEX SODIUM 500 MG DR TABLET PO SCH (12:57)
[2016-04-07 13:48] VITALS: BP 137/84
[2016-04-07 16:22] VITALS: BP 130/81
[2016-04-08] MEDS: DIVALPROEX SODIUM 500 MG ER TABLET PO SCH ×2 (06:39→22:18)
[2016-04-08] MEDS: ChlorproMAZINE HCL 100 MG TABLET PO SCH ×2 (06:39→13:20)
[2016-04-08] MEDS: TOPIRAMATE 100 MG TABLET PO SCH ×2 (06:40→17:28)
[2016-04-08 08:07] VITALS: BP 129/88
[2016-04-08] MEDS: CHOLECALCIFEROL (VIT D3) 1,000 UNITS TABLET PO SCH (08:15)
[2016-04-08] MEDS: TRIHEXYPHENIDYL HCL 5 MG TABLET PO SCH ×2 (08:15→17:28)
[2016-04-08] MEDS: HALOPERIDOL 10 MG TABLET PO PRN (08:15)
[2016-04-08] MEDS: LORazepam 2 MG TABLET PO PRN (08:15)
[2016-04-08] MEDS: DIVALPROEX SODIUM 500 MG DR TABLET PO SCH (13:20)
[2016-04-08 18:20] VITALS: BP 128/93
[2016-04-09] MEDS: ChlorproMAZINE HCL 100 MG TABLET PO SCH ×2 (06:16→13:29)
[2016-04-09] MEDS: DIVALPROEX SODIUM 500 MG ER TABLET PO SCH ×2 (06:16→20:40)
[2016-04-09] MEDS: TOPIRAMATE 100 MG TABLET PO SCH ×2 (06:17→16:51)
[2016-04-09 08:01] VITALS: BP 136/90
[2016-04-09] MEDS: LORazepam 2 MG TABLET PO PRN ×2 (08:50→18:22)
[2016-04-09] MEDS: TRIHEXYPHENIDYL HCL 5 MG TABLET PO SCH ×2 (08:50→16:51)
[2016-04-09] MEDS: CHOLECALCIFEROL (VIT D3) 1,000 UNITS TABLET PO SCH (08:50)
[2016-04-09] MEDS: HALOPERIDOL 10 MG TABLET PO PRN (08:50)
[2016-04-09] MEDS: DIVALPROEX SODIUM 500 MG DR TABLET PO SCH (13:29)
[2016-04-09 16:28] VITALS: BP 132/86
[2016-04-10] MEDS: DIVALPROEX SODIUM 500 MG ER TABLET PO SCH ×2 (06:06→21:12)
[2016-04-10] MEDS: ChlorproMAZINE HCL 100 MG TABLET PO SCH ×2 (06:07→12:25)
[2016-04-10] MEDS: TOPIRAMATE 100 MG TABLET PO SCH ×2 (06:08→17:02)
[2016-04-10] MEDS: TRIHEXYPHENIDYL HCL 5 MG TABLET PO SCH ×2 (08:24→17:02)
[2016-04-10] MEDS: CHOLECALCIFEROL (VIT D3) 1,000 UNITS TABLET PO SCH (08:24)
[2016-04-10 09:33] VITALS: BP 128/76
[2016-04-10] MEDS: DIVALPROEX SODIUM 500 MG DR TABLET PO SCH (12:25)
[2016-04-11] MEDS: DIVALPROEX SODIUM 500 MG ER TABLET PO SCH ×2 (06:15→20:41)
[2016-04-11] MEDS: ChlorproMAZINE HCL 100 MG TABLET PO SCH ×2 (06:16→12:06)
[2016-04-11] MEDS: TOPIRAMATE 100 MG TABLET PO SCH ×2 (06:16→17:52)
[2016-04-11 08:01] VITALS: BP 127/93
[2016-04-11] MEDS: TRIHEXYPHENIDYL HCL 5 MG TABLET PO SCH ×2 (08:08→17:52)
[2016-04-11] MEDS: CHOLECALCIFEROL (VIT D3) 1,000 UNITS TABLET PO SCH (08:08)
[2016-04-11] MEDS: DIVALPROEX SODIUM 500 MG DR TABLET PO SCH (12:06)
[2016-04-11 16:15] VITALS: BP 124/68
[2016-04-12] MEDS: DIVALPROEX SODIUM 500 MG ER TABLET PO SCH ×2 (07:00→20:12)
[2016-04-12] MEDS: TOPIRAMATE 100 MG TABLET PO SCH ×2 (07:01→18:03)
[2016-04-12] MEDS: ChlorproMAZINE HCL 100 MG TABLET PO SCH ×2 (07:01→13:48)
[2016-04-12] MEDS: TRIHEXYPHENIDYL HCL 5 MG TABLET PO SCH ×2 (07:59→18:03)
[2016-04-12] MEDS: CHOLECALCIFEROL (VIT D3) 1,000 UNITS TABLET PO SCH (08:00)
[2016-04-12 08:01] VITALS: BP 134/78
[2016-04-12] MEDS: DIVALPROEX SODIUM 500 MG DR TABLET PO SCH (13:48)
[2016-04-12 16:00] VITALS: BP 116/76
[2016-04-13] MEDS: DIVALPROEX SODIUM 500 MG ER TABLET PO SCH ×2 (06:27→20:09)
[2016-04-13] MEDS: ChlorproMAZINE HCL 100 MG TABLET PO SCH ×2 (06:27→13:10)
[2016-04-13] MEDS: TOPIRAMATE 100 MG TABLET PO SCH ×2 (06:27→16:59)
[2016-04-13 08:07] VITALS: BP 142/96
[2016-04-13] MEDS: CHOLECALCIFEROL (VIT D3) 1,000 UNITS TABLET PO SCH (08:44)
[2016-04-13] MEDS: TRIHEXYPHENIDYL HCL 5 MG TABLET PO SCH ×2 (08:45→16:58)
[2016-04-13] MEDS: DIVALPROEX SODIUM 500 MG DR TABLET PO SCH (13:11)
[2016-04-13 16:00] VITALS: BP 113/77
[2016-04-13] MEDS: LORazepam 2 MG TABLET PO PRN (18:00)
[2016-04-14] MEDS: DIVALPROEX SODIUM 500 MG ER TABLET PO SCH ×2 (06:47→20:30)
[2016-04-14] MEDS: TOPIRAMATE 100 MG TABLET PO SCH ×2 (06:47→16:37)
[2016-04-14] MEDS: ChlorproMAZINE HCL 100 MG TABLET PO SCH ×2 (06:47→12:45)
[2016-04-14 08:00] VITALS: BP 119/79
[2016-04-14] MEDS: CHOLECALCIFEROL (VIT D3) 1,000 UNITS TABLET PO SCH (08:43)
[2016-04-14] MEDS: TRIHEXYPHENIDYL HCL 5 MG TABLET PO SCH ×2 (08:43→16:36)
[2016-04-14] MEDS: DIVALPROEX SODIUM 500 MG DR TABLET PO SCH (12:47)
[2016-04-14 16:48] VITALS: BP 125/89
[2016-04-15] MEDS: ChlorproMAZINE HCL 100 MG TABLET PO SCH ×2 (06:36→12:46)
[2016-04-15] MEDS: TOPIRAMATE 100 MG TABLET PO SCH ×2 (06:37→17:18)
[2016-04-15] MEDS: DIVALPROEX SODIUM 500 MG ER TABLET PO SCH ×2 (06:37→21:02)
[2016-04-15 08:10] VITALS: BP 134/82
[2016-04-15] MEDS: TRIHEXYPHENIDYL HCL 5 MG TABLET PO SCH ×2 (08:10→17:18)
[2016-04-15] MEDS: CHOLECALCIFEROL (VIT D3) 1,000 UNITS TABLET PO SCH (08:10)
[2016-04-15] MEDS: ATENOLOL 25 MG TABLET PO SCH (11:48)
[2016-04-15] MEDS: DIVALPROEX SODIUM 500 MG DR TABLET PO SCH (12:46)
[2016-04-15 16:04] VITALS: BP 109/74
[2016-04-16] MEDS: ChlorproMAZINE HCL 100 MG TABLET PO SCH ×2 (06:45→13:15)
[2016-04-16] MEDS: TOPIRAMATE 100 MG TABLET PO SCH ×2 (06:45→16:24)
[2016-04-16] MEDS: DIVALPROEX SODIUM 500 MG ER TABLET PO SCH ×2 (06:45→20:43)
[2016-04-16 08:02] VITALS: BP 130/83
[2016-04-16] MEDS: ATENOLOL 25 MG TABLET PO SCH (08:16)
[2016-04-16] MEDS: TRIHEXYPHENIDYL HCL 5 MG TABLET PO SCH ×2 (08:16→16:23)
[2016-04-16] MEDS: CHOLECALCIFEROL (VIT D3) 1,000 UNITS TABLET PO SCH (08:16)
[2016-04-16] MEDS: DIVALPROEX SODIUM 500 MG DR TABLET PO SCH (13:15)
[2016-04-16 16:25] VITALS: BP 114/79
[2016-04-17] MEDS: TOPIRAMATE 100 MG TABLET PO SCH ×2 (06:40→17:10)
[2016-04-17] MEDS: ChlorproMAZINE HCL 100 MG TABLET PO SCH ×2 (06:40→12:13)
[2016-04-17] MEDS: DIVALPROEX SODIUM 500 MG ER TABLET PO SCH ×2 (06:40→20:43)
[2016-04-17 08:05] VITALS: BP 121/74
[2016-04-17] MEDS: ATENOLOL 25 MG TABLET PO SCH (08:29)
[2016-04-17] MEDS: TRIHEXYPHENIDYL HCL 5 MG TABLET PO SCH ×2 (08:30→17:10)
[2016-04-17] MEDS: CHOLECALCIFEROL (VIT D3) 1,000 UNITS TABLET PO SCH (08:30)
[2016-04-17] MEDS: DIVALPROEX SODIUM 500 MG DR TABLET PO SCH (12:12)
[2016-04-17 17:13] VITALS: BP 128/73
[2016-04-18] MEDS: DIVALPROEX SODIUM 500 MG ER TABLET PO SCH ×2 (06:40→20:21)
[2016-04-18] MEDS: TOPIRAMATE 100 MG TABLET PO SCH ×2 (06:40→16:40)
[2016-04-18] MEDS: ChlorproMAZINE HCL 100 MG TABLET PO SCH ×2 (06:40→12:42)
[2016-04-18] MEDS: CHOLECALCIFEROL (VIT D3) 1,000 UNITS TABLET PO SCH (08:01)
[2016-04-18] MEDS: ATENOLOL 25 MG TABLET PO SCH (08:02)
[2016-04-18] MEDS: TRIHEXYPHENIDYL HCL 5 MG TABLET PO SCH ×2 (08:02→16:40)
[2016-04-18] MEDS: IBUPROFEN 600 MG TABLET PO PRN (08:05)
[2016-04-18 09:26] VITALS: BP 137/81
[2016-04-18] MEDS: DIVALPROEX SODIUM 500 MG DR TABLET PO SCH (12:42)
[2016-04-18 16:00] VITALS: BP 111/74
[2016-04-19] MEDS: DIVALPROEX SODIUM 500 MG ER TABLET PO SCH ×2 (06:29→21:44)
[2016-04-19] MEDS: ChlorproMAZINE HCL 100 MG TABLET PO SCH ×2 (06:29→13:15)
[2016-04-19] MEDS: TOPIRAMATE 100 MG TABLET PO SCH ×2 (06:29→16:14)
[2016-04-19] MEDS: ATENOLOL 25 MG TABLET PO SCH (08:16)
[2016-04-19] MEDS: TRIHEXYPHENIDYL HCL 5 MG TABLET PO SCH ×2 (08:16→16:14)
[2016-04-19] MEDS: CHOLECALCIFEROL (VIT D3) 1,000 UNITS TABLET PO SCH (08:16)
[2016-04-19 10:49] VITALS: BP 114/76
[2016-04-19] MEDS: DIVALPROEX SODIUM 500 MG DR TABLET PO SCH (13:14)
[2016-04-19 16:00] VITALS: BP 112/66
[2016-04-19] MEDS: LORazepam 2 MG TABLET PO PRN (16:18)
[2016-04-20] MEDS: TOPIRAMATE 100 MG TABLET PO SCH ×2 (06:52→16:59)
[2016-04-20] MEDS: ChlorproMAZINE HCL 100 MG TABLET PO SCH ×2 (06:52→12:38)
[2016-04-20] MEDS: DIVALPROEX SODIUM 500 MG ER TABLET PO SCH ×2 (06:52→20:19)
[2016-04-20 08:00] VITALS: BP 142/70
[2016-04-20] MEDS: CHOLECALCIFEROL (VIT D3) 1,000 UNITS TABLET PO SCH (08:36)
[2016-04-20] MEDS: ATENOLOL 25 MG TABLET PO SCH (08:36)
[2016-04-20] MEDS: TRIHEXYPHENIDYL HCL 5 MG TABLET PO SCH ×2 (08:36→16:58)
[2016-04-20] MEDS: DIVALPROEX SODIUM 500 MG DR TABLET PO SCH (12:38)
[2016-04-20 18:00] VITALS: BP 115/70
[2016-04-21] MEDS: DIVALPROEX SODIUM 500 MG ER TABLET PO SCH ×2 (06:55→21:06)
[2016-04-21] MEDS: ChlorproMAZINE HCL 100 MG TABLET PO SCH ×2 (06:55→13:01)
[2016-04-21] MEDS: TOPIRAMATE 100 MG TABLET PO SCH ×2 (06:55→18:09)
[2016-04-21 08:00] VITALS: BP 134/71
[2016-04-21] MEDS: TRIHEXYPHENIDYL HCL 5 MG TABLET PO SCH ×2 (08:36→18:09)
[2016-04-21] MEDS: ATENOLOL 25 MG TABLET PO SCH (08:36)
[2016-04-21] MEDS: CHOLECALCIFEROL (VIT D3) 1,000 UNITS TABLET PO SCH (08:37)
[2016-04-21] MEDS: LORazepam 2 MG TABLET PO PRN (08:37)
[2016-04-21] MEDS: DIVALPROEX SODIUM 500 MG DR TABLET PO SCH (13:01)
[2016-04-21] MEDS: TRIAMCINOLONE 0.1% 15 GM OINTMENT TP SCH (21:19)
[2016-04-22] MEDS: TOPIRAMATE 100 MG TABLET PO SCH ×2 (06:50→16:30)
[2016-04-22] MEDS: DIVALPROEX SODIUM 500 MG ER TABLET PO SCH ×2 (06:50→21:46)
[2016-04-22] MEDS: ChlorproMAZINE HCL 100 MG TABLET PO SCH ×2 (06:50→12:26)
[2016-04-22] MEDS: ATENOLOL 25 MG TABLET PO SCH (08:16)
[2016-04-22] MEDS: TRIHEXYPHENIDYL HCL 5 MG TABLET PO SCH ×2 (08:16→16:30)
[2016-04-22] MEDS: CHOLECALCIFEROL (VIT D3) 1,000 UNITS TABLET PO SCH (08:16)
[2016-04-22] MEDS: TRIAMCINOLONE 0.1% 15 GM OINTMENT TP SCH ×3 (08:18→16:30)
[2016-04-22 11:49] VITALS: BP 139/96
[2016-04-22] MEDS: DIVALPROEX SODIUM 500 MG DR TABLET PO SCH (12:26)
[2016-04-22 16:00] VITALS: BP 107/70
[2016-04-23] MEDS: TOPIRAMATE 100 MG TABLET PO SCH ×2 (06:51→16:08)
[2016-04-23] MEDS: DIVALPROEX SODIUM 500 MG ER TABLET PO SCH ×2 (06:51→20:24)
[2016-04-23] MEDS: ChlorproMAZINE HCL 100 MG TABLET PO SCH ×2 (06:51→13:49)
[2016-04-23] MEDS: CHOLECALCIFEROL (VIT D3) 1,000 UNITS TABLET PO SCH (08:06)
[2016-04-23] MEDS: TRIAMCINOLONE 0.1% 15 GM OINTMENT TP SCH ×3 (08:07→16:07)
[2016-04-23] MEDS: TRIHEXYPHENIDYL HCL 5 MG TABLET PO SCH ×2 (08:07→16:08)
[2016-04-23] MEDS: ATENOLOL 25 MG TABLET PO SCH (08:08)
[2016-04-23 08:30] VITALS: BP 120/89
[2016-04-23] MEDS: DIVALPROEX SODIUM 500 MG DR TABLET PO SCH (13:49)
[2016-04-23 16:25] VITALS: BP 128/81
[2016-04-24] MEDS: ChlorproMAZINE HCL 100 MG TABLET PO SCH ×2 (06:46→12:27)
[2016-04-24] MEDS: DIVALPROEX SODIUM 500 MG ER TABLET PO SCH ×2 (06:46→21:03)
[2016-04-24] MEDS: TOPIRAMATE 100 MG TABLET PO SCH ×2 (06:46→16:31)
[2016-04-24] MEDS: TRIAMCINOLONE 0.1% 15 GM OINTMENT TP SCH ×3 (08:19→16:32)
[2016-04-24] MEDS: TRIHEXYPHENIDYL HCL 5 MG TABLET PO SCH ×2 (08:19→16:31)
[2016-04-24] MEDS: CHOLECALCIFEROL (VIT D3) 1,000 UNITS TABLET PO SCH (08:19)
[2016-04-24] MEDS: ATENOLOL 25 MG TABLET PO SCH (08:19)
[2016-04-24] MEDS: DIVALPROEX SODIUM 500 MG DR TABLET PO SCH (12:26)
[2016-04-24 13:00] VITALS: BP 130/80
[2016-04-24 16:10] VITALS: BP 114/78
[2016-04-25] MEDS: TOPIRAMATE 100 MG TABLET PO SCH ×2 (06:46→17:21)
[2016-04-25] MEDS: ChlorproMAZINE HCL 100 MG TABLET PO SCH ×2 (06:46→12:49)
[2016-04-25] MEDS: DIVALPROEX SODIUM 500 MG ER TABLET PO SCH ×2 (06:46→21:03)
[2016-04-25 08:00] VITALS: BP 126/86
[2016-04-25 08:01] VITALS: BP 126/86
[2016-04-25] MEDS: TRIHEXYPHENIDYL HCL 5 MG TABLET PO SCH ×2 (08:21→17:21)
[2016-04-25] MEDS: CHOLECALCIFEROL (VIT D3) 1,000 UNITS TABLET PO SCH (08:21)
[2016-04-25] MEDS: LORazepam 2 MG TABLET PO PRN (08:22)
[2016-04-25] MEDS: ATENOLOL 25 MG TABLET PO SCH (08:22)
[2016-04-25] MEDS: TRIAMCINOLONE 0.1% 15 GM OINTMENT TP SCH ×3 (11:17→17:21)
[2016-04-25] MEDS: DIVALPROEX SODIUM 500 MG DR TABLET PO SCH (12:49)
[2016-04-26] MEDS: TOPIRAMATE 100 MG TABLET PO SCH ×2 (06:51→16:29)
[2016-04-26] MEDS: DIVALPROEX SODIUM 500 MG ER TABLET PO SCH ×2 (06:51→20:28)
[2016-04-26] MEDS: ChlorproMAZINE HCL 100 MG TABLET PO SCH ×2 (06:52→12:08)
[2016-04-26 08:00] VITALS: BP 124/79
[2016-04-26] MEDS: CHOLECALCIFEROL (VIT D3) 1,000 UNITS TABLET PO SCH (08:34)
[2016-04-26] MEDS: ATENOLOL 25 MG TABLET PO SCH (08:34)
[2016-04-26] MEDS: LORazepam 2 MG TABLET PO PRN (08:34)
[2016-04-26] MEDS: TRIHEXYPHENIDYL HCL 5 MG TABLET PO SCH ×2 (08:34→16:29)
[2016-04-26] MEDS: TRIAMCINOLONE 0.1% 15 GM OINTMENT TP SCH ×3 (08:35→16:29)
[2016-04-26] MEDS: DIVALPROEX SODIUM 500 MG DR TABLET PO SCH (12:08)
[2016-04-26 19:57] VITALS: BP 127/78
[2016-04-27] MEDS: DIVALPROEX SODIUM 500 MG ER TABLET PO SCH ×2 (06:54→20:54)
[2016-04-27] MEDS: ChlorproMAZINE HCL 100 MG TABLET PO SCH ×2 (06:54→13:36)
[2016-04-27] MEDS: TOPIRAMATE 100 MG TABLET PO SCH ×2 (06:54→16:19)
[2016-04-27] MEDS: CHOLECALCIFEROL (VIT D3) 1,000 UNITS TABLET PO SCH (07:53)
[2016-04-27] MEDS: TRIAMCINOLONE 0.1% 15 GM OINTMENT TP SCH ×3 (07:54→16:19)
[2016-04-27] MEDS: TRIHEXYPHENIDYL HCL 5 MG TABLET PO SCH ×2 (07:54→16:19)
[2016-04-27] MEDS: ATENOLOL 25 MG TABLET PO SCH (07:54)
[2016-04-27 08:30] VITALS: BP 118/78
[2016-04-27] MEDS: DIVALPROEX SODIUM 500 MG DR TABLET PO SCH (13:35)
[2016-04-27 18:28] VITALS: BP 124/76
[2016-04-28] MEDS: ChlorproMAZINE HCL 100 MG TABLET PO SCH ×2 (06:45→12:29)
[2016-04-28] MEDS: TOPIRAMATE 100 MG TABLET PO SCH ×2 (06:45→16:24)
[2016-04-28] MEDS: DIVALPROEX SODIUM 500 MG ER TABLET PO SCH ×2 (06:45→20:34)
[2016-04-28 08:00] VITALS: BP 140/89
[2016-04-28] MEDS: TRIAMCINOLONE 0.1% 15 GM OINTMENT TP SCH ×3 (09:00→16:24)
[2016-04-28] MEDS: CHOLECALCIFEROL (VIT D3) 1,000 UNITS TABLET PO SCH (09:01)
[2016-04-28] MEDS: ATENOLOL 25 MG TABLET PO SCH (09:01)
[2016-04-28] MEDS: TRIHEXYPHENIDYL HCL 5 MG TABLET PO SCH ×2 (09:01→16:24)
[2016-04-28] MEDS: DIVALPROEX SODIUM 500 MG DR TABLET PO SCH (12:28)
[2016-04-28 16:35] VITALS: BP 118/66
[2016-04-29] MEDS: TOPIRAMATE 100 MG TABLET PO SCH ×2 (06:44→16:23)
[2016-04-29] MEDS: ChlorproMAZINE HCL 100 MG TABLET PO SCH ×2 (06:45→13:08)
[2016-04-29] MEDS: DIVALPROEX SODIUM 500 MG ER TABLET PO SCH ×2 (06:45→20:52)
[2016-04-29 08:00] VITALS: BP 123/82
[2016-04-29] MEDS: ATENOLOL 25 MG TABLET PO SCH (08:29)
[2016-04-29] MEDS: TRIHEXYPHENIDYL HCL 5 MG TABLET PO SCH ×2 (08:29→16:22)
[2016-04-29] MEDS: CHOLECALCIFEROL (VIT D3) 1,000 UNITS TABLET PO SCH (08:29)
[2016-04-29] MEDS: TRIAMCINOLONE 0.1% 15 GM OINTMENT TP SCH ×3 (08:29→16:22)
[2016-04-29] MEDS: DIVALPROEX SODIUM 500 MG DR TABLET PO SCH (13:05)
[2016-04-29 19:07] VITALS: BP 118/79
[2016-04-30] MEDS: ZOLPIDEM TARTRATE 10 MG TABLET PO PRN (01:16)
[2016-04-30] MEDS: LORazepam 2 MG TABLET PO PRN ×2 (01:16→23:58)
[2016-04-30] MEDS: DIVALPROEX SODIUM 500 MG ER TABLET PO SCH ×2 (06:53→20:42)
[2016-04-30] MEDS: TOPIRAMATE 100 MG TABLET PO SCH ×2 (06:53→16:24)
[2016-04-30] MEDS: ChlorproMAZINE HCL 100 MG TABLET PO SCH ×2 (06:53→12:13)
[2016-04-30 08:00] VITALS: BP 119/77
[2016-04-30] MEDS: ATENOLOL 25 MG TABLET PO SCH (08:44)
[2016-04-30] MEDS: TRIHEXYPHENIDYL HCL 5 MG TABLET PO SCH ×2 (08:44→16:23)
[2016-04-30] MEDS: TRIAMCINOLONE 0.1% 15 GM OINTMENT TP SCH ×3 (08:44→16:28)
[2016-04-30] MEDS: CHOLECALCIFEROL (VIT D3) 1,000 UNITS TABLET PO SCH (08:44)
[2016-04-30] MEDS: DIVALPROEX SODIUM 500 MG DR TABLET PO SCH (12:13)
[2016-04-30 16:56] VITALS: BP 100/68
[2016-04-30] MEDS: HALOPERIDOL 10 MG TABLET PO PRN (23:58)
[2016-05-01] MEDS: TOPIRAMATE 100 MG TABLET PO SCH ×2 (06:45→16:23)
[2016-05-01] MEDS: ChlorproMAZINE HCL 100 MG TABLET PO SCH ×2 (06:45→12:56)
[2016-05-01] MEDS: DIVALPROEX SODIUM 500 MG ER TABLET PO SCH ×2 (06:46→20:29)
[2016-05-01] MEDS: CHOLECALCIFEROL (VIT D3) 1,000 UNITS TABLET PO SCH (08:16)
[2016-05-01] MEDS: ATENOLOL 25 MG TABLET PO SCH (08:16)
[2016-05-01] MEDS: TRIHEXYPHENIDYL HCL 5 MG TABLET PO SCH ×2 (08:16→16:23)
[2016-05-01] MEDS: TRIAMCINOLONE 0.1% 15 GM OINTMENT TP SCH ×3 (08:17→16:53)
[2016-05-01 10:58] VITALS: BP 106/75
[2016-05-01] MEDS: DIVALPROEX SODIUM 500 MG DR TABLET PO SCH (12:55)
[2016-05-01 16:35] VITALS: BP 126/86
[2016-05-02] MEDS: DIVALPROEX SODIUM 500 MG ER TABLET PO SCH ×2 (06:41→20:29)
[2016-05-02] MEDS: ChlorproMAZINE HCL 100 MG TABLET PO SCH ×2 (06:41→12:19)
[2016-05-02] MEDS: TOPIRAMATE 100 MG TABLET PO SCH ×2 (06:43→16:31)
[2016-05-02] MEDS: CHOLECALCIFEROL (VIT D3) 1,000 UNITS TABLET PO SCH (08:12)
[2016-05-02] MEDS: TRIHEXYPHENIDYL HCL 5 MG TABLET PO SCH ×2 (08:12→16:31)
[2016-05-02] MEDS: ATENOLOL 25 MG TABLET PO SCH (08:13)
[2016-05-02] MEDS: TRIAMCINOLONE 0.1% 15 GM OINTMENT TP SCH ×3 (08:13→16:36)
[2016-05-02] MEDS: LORazepam 2 MG TABLET PO PRN (08:56)
[2016-05-02] MEDS: HALOPERIDOL 10 MG TABLET PO PRN (08:56)
[2016-05-02 09:34] VITALS: BP 125/90
[2016-05-02] MEDS: DIVALPROEX SODIUM 500 MG DR TABLET PO SCH (12:20)
[2016-05-02 17:14] VITALS: BP 116/77
[2016-05-03] MEDS: TOPIRAMATE 100 MG TABLET PO SCH ×2 (06:37→16:08)
[2016-05-03] MEDS: DIVALPROEX SODIUM 500 MG ER TABLET PO SCH ×2 (06:37→20:57)
[2016-05-03] MEDS: ChlorproMAZINE HCL 100 MG TABLET PO SCH ×2 (06:37→13:00)
[2016-05-03] MEDS: CHOLECALCIFEROL (VIT D3) 1,000 UNITS TABLET PO SCH (08:05)
[2016-05-03] MEDS: TRIHEXYPHENIDYL HCL 5 MG TABLET PO SCH ×2 (08:05→16:07)
[2016-05-03] MEDS: ATENOLOL 25 MG TABLET PO SCH (08:05)
[2016-05-03] MEDS: TRIAMCINOLONE 0.1% 15 GM OINTMENT TP SCH ×3 (08:07→16:07)
[2016-05-03 08:10] VITALS: BP 114/65
[2016-05-03] MEDS: DIVALPROEX SODIUM 500 MG DR TABLET PO SCH (13:00)
[2016-05-03 16:38] VITALS: BP 117/76
[2016-05-04] MEDS: TOPIRAMATE 100 MG TABLET PO SCH ×2 (06:43→16:54)
[2016-05-04] MEDS: ChlorproMAZINE HCL 100 MG TABLET PO SCH ×2 (06:43→12:31)
[2016-05-04] MEDS: DIVALPROEX SODIUM 500 MG ER TABLET PO SCH ×2 (06:43→20:04)
[2016-05-04 08:08] VITALS: BP 146/96
[2016-05-04] MEDS: TRIHEXYPHENIDYL HCL 5 MG TABLET PO SCH ×2 (08:10→16:54)
[2016-05-04] MEDS: CHOLECALCIFEROL (VIT D3) 1,000 UNITS TABLET PO SCH (08:10)
[2016-05-04] MEDS: TRIAMCINOLONE 0.1% 15 GM OINTMENT TP SCH ×3 (08:11→16:55)
[2016-05-04] MEDS: ATENOLOL 25 MG TABLET PO SCH (08:12)
[2016-05-04] MEDS: DIVALPROEX SODIUM 500 MG DR TABLET PO SCH (12:30)
[2016-05-04 16:00] VITALS: BP 120/74
[2016-05-05] MEDS: ChlorproMAZINE HCL 100 MG TABLET PO SCH ×2 (07:00→12:09)
[2016-05-05] MEDS: TOPIRAMATE 100 MG TABLET PO SCH ×2 (07:00→16:12)
[2016-05-05] MEDS: DIVALPROEX SODIUM 500 MG ER TABLET PO SCH ×2 (07:00→21:10)
[2016-05-05] MEDS: TRIHEXYPHENIDYL HCL 5 MG TABLET PO SCH ×2 (09:00→16:12)
[2016-05-05] MEDS: CHOLECALCIFEROL (VIT D3) 1,000 UNITS TABLET PO SCH (09:00)
[2016-05-05] MEDS: TRIAMCINOLONE 0.1% 15 GM OINTMENT TP SCH ×3 (09:01→16:12)
[2016-05-05] MEDS: LORazepam 2 MG TABLET PO PRN (09:01)
[2016-05-05] MEDS: ATENOLOL 25 MG TABLET PO SCH (09:01)
[2016-05-05] MEDS: HALOPERIDOL 10 MG TABLET PO PRN (09:02)
[2016-05-05 09:04] VITALS: BP 125/75
[2016-05-05] MEDS: DIVALPROEX SODIUM 500 MG DR TABLET PO SCH (12:09)
[2016-05-05 16:15] VITALS: BP 121/76
[2016-05-06 06:50] LABS: BASOPHILS # (AUTO) 0.02 K/uL (0.00-0.20); BASOPHILS % (AUTO) 0.4 % (0.0-2.0); EOSINOPHILS # (AUTO) 0.06 K/uL (0.00-0.70); EOSINOPHILS % (AUTO) 1.32 % (1.0-6.0); HEMATOCRIT 43.1 % (41-53); HEMOGLOBIN 14.9 g/dL (13.5-17.5); LYMPHOCYTES # (AUTO) 1.5 K/uL (1.0-4.8); LYMPHOCYTES % (AUTO) 32.6 % (22.0-44.0); MEAN CORPUSCULAR HEMOGLOBIN 32.6 pg (26.0-34.0); MEAN CORPUSCULAR HGB CONC 34.5 G/dL (31.0-37.0); MEAN CORPUSCULAR VOLUME 95 fL (80-100); MONOCYTES # (AUTO) 0.4 K/uL (0.1-1.0); MONOCYTES % (AUTO) 8.8 % (2.0-9.0); NEUTROPHILS # (AUTO) 2.6 K/uL (1.8-7.7); NEUTROPHILS % (AUTO) 56.9 % (40.0-70.0); PLATELET COUNT (AUTO) 130 K/uL (150-450); RED BLOOD CELL COUNT(AUTO) 4.56 MIL/uL (4.50-5.90); RED CELL DISTRIBUTION WIDTH 12.8 % (11.5-14.5); WHITE BLOOD COUNT (AUTO) 4.6 K/uL (4.5-11.0)
[2016-05-06] MEDS: ChlorproMAZINE HCL 100 MG TABLET PO SCH ×2 (06:50→12:33)
[2016-05-06] MEDS: TOPIRAMATE 100 MG TABLET PO SCH ×2 (06:51→16:17)
[2016-05-06] MEDS: DIVALPROEX SODIUM 500 MG ER TABLET PO SCH ×2 (06:51→20:45)
[2016-05-06 07:01] LABS: ALANINE AMINOTRANSFERASE 21 U/L (12-78); ALBUMIN 3.2 g/dL (3.4-5.0); ANION GAP 7 mmol/L (8-16); ASPARTATE AMINOTRANSFERASE 19 U/L (15-37); BILIRUBIN,TOTAL 0.2 mg/dL (0.1-1.0); CALCIUM, TOTAL 8.3 mg/dL (8.8-10.5); CARBON DIOXIDE 24 mmol/L (22-29); CHLORIDE 108 mmol/L (98-107); CREATININE 1.06 mg/dL (0.60-1.30); GLOMERULAR FILTR. RATE CALC > 60 mL/min (>60); PHOSPHORUS 3.8 mg/dL (2.5-4.9); POTASSIUM 4.1 mmol/L (3.5-5.1); SODIUM SERUM 139 mmol/L (136-145); TOTAL PROTEIN, SERUM 7.3 g/dL (6.4-8.2); UREA NITROGEN, BLOOD 18 mg/dL (7-18)
[2016-05-06 08:07] VITALS: BP 137/100
[2016-05-06] MEDS: CHOLECALCIFEROL (VIT D3) 1,000 UNITS TABLET PO SCH (09:20)
[2016-05-06] MEDS: TRIHEXYPHENIDYL HCL 5 MG TABLET PO SCH ×2 (09:20→16:17)
[2016-05-06] MEDS: ATENOLOL 25 MG TABLET PO SCH (09:21)
[2016-05-06] MEDS: TRIAMCINOLONE 0.1% 15 GM OINTMENT TP SCH ×3 (09:22→16:17)
[2016-05-06] MEDS: DIVALPROEX SODIUM 500 MG DR TABLET PO SCH (12:34)
[2016-05-06 16:00] VITALS: BP 141/82
[2016-05-07] MEDS: DIVALPROEX SODIUM 500 MG ER TABLET PO SCH ×2 (06:34→21:02)
[2016-05-07] MEDS: TOPIRAMATE 100 MG TABLET PO SCH ×2 (06:34→16:37)
[2016-05-07] MEDS: ChlorproMAZINE HCL 100 MG TABLET PO SCH ×2 (06:34→12:59)
[2016-05-07 08:30] VITALS: BP 120/79
[2016-05-07] MEDS: TRIAMCINOLONE 0.1% 15 GM OINTMENT TP SCH ×3 (09:00→16:37)
[2016-05-07] MEDS: TRIHEXYPHENIDYL HCL 5 MG TABLET PO SCH ×2 (10:22→16:37)
[2016-05-07] MEDS: CHOLECALCIFEROL (VIT D3) 1,000 UNITS TABLET PO SCH (10:22)
[2016-05-07] MEDS: ATENOLOL 25 MG TABLET PO SCH (10:22)
[2016-05-07] MEDS: DIVALPROEX SODIUM 500 MG DR TABLET PO SCH (12:59)
[2016-05-07 16:45] VITALS: BP 115/76
[2016-05-08] MEDS: TOPIRAMATE 100 MG TABLET PO SCH ×2 (06:33→16:41)
[2016-05-08] MEDS: ChlorproMAZINE HCL 100 MG TABLET PO SCH ×2 (06:33→12:29)
[2016-05-08] MEDS: DIVALPROEX SODIUM 500 MG ER TABLET PO SCH ×2 (06:33→20:46)
[2016-05-08] MEDS: TRIAMCINOLONE 0.1% 15 GM OINTMENT TP SCH ×3 (09:00→16:41)
[2016-05-08] MEDS: CHOLECALCIFEROL (VIT D3) 1,000 UNITS TABLET PO SCH (09:07)
[2016-05-08] MEDS: ATENOLOL 25 MG TABLET PO SCH (09:07)
[2016-05-08] MEDS: TRIHEXYPHENIDYL HCL 5 MG TABLET PO SCH ×2 (09:07→16:41)
[2016-05-08 10:29] VITALS: BP 132/78
[2016-05-08] MEDS: DIVALPROEX SODIUM 500 MG DR TABLET PO SCH (12:29)
[2016-05-08 16:19] VITALS: BP 134/87
[2016-05-09] MEDS: DIVALPROEX SODIUM 500 MG ER TABLET PO SCH ×2 (06:45→20:34)
[2016-05-09] MEDS: ChlorproMAZINE HCL 100 MG TABLET PO SCH ×2 (06:45→12:39)
[2016-05-09] MEDS: TOPIRAMATE 100 MG TABLET PO SCH ×2 (06:46→16:16)
[2016-05-09 08:00] VITALS: BP 118/77
[2016-05-09] MEDS: TRIAMCINOLONE 0.1% 15 GM OINTMENT TP SCH ×3 (09:00→16:16)
[2016-05-09] MEDS: ATENOLOL 25 MG TABLET PO SCH (09:21)
[2016-05-09] MEDS: TRIHEXYPHENIDYL HCL 5 MG TABLET PO SCH ×2 (09:21→16:16)
[2016-05-09] MEDS: CHOLECALCIFEROL (VIT D3) 1,000 UNITS TABLET PO SCH (09:22)
[2016-05-09] MEDS: DIVALPROEX SODIUM 500 MG DR TABLET PO SCH (12:39)
[2016-05-09 17:05] VITALS: BP 118/77
[2016-05-10] MEDS: ChlorproMAZINE HCL 100 MG TABLET PO SCH ×2 (06:52→13:28)
[2016-05-10] MEDS: DIVALPROEX SODIUM 500 MG ER TABLET PO SCH ×2 (06:53→21:16)
[2016-05-10] MEDS: TOPIRAMATE 100 MG TABLET PO SCH ×2 (06:53→16:23)
[2016-05-10 08:15] VITALS: BP 139/74
[2016-05-10] MEDS: TRIAMCINOLONE 0.1% 15 GM OINTMENT TP SCH ×3 (09:00→16:23)
[2016-05-10] MEDS: ATENOLOL 25 MG TABLET PO SCH (09:27)
[2016-05-10] MEDS: CHOLECALCIFEROL (VIT D3) 1,000 UNITS TABLET PO SCH (09:27)
[2016-05-10] MEDS: TRIHEXYPHENIDYL HCL 5 MG TABLET PO SCH ×2 (09:28→16:23)
[2016-05-10] MEDS: DIVALPROEX SODIUM 500 MG DR TABLET PO SCH (13:28)
[2016-05-10 16:30] VITALS: BP 113/72
[2016-05-11] MEDS: DIVALPROEX SODIUM 500 MG ER TABLET PO SCH ×2 (06:55→20:19)
[2016-05-11] MEDS: ChlorproMAZINE HCL 100 MG TABLET PO SCH ×2 (06:55→11:50)
[2016-05-11] MEDS: TOPIRAMATE 100 MG TABLET PO SCH ×2 (06:56→16:22)
[2016-05-11] MEDS: TRIHEXYPHENIDYL HCL 5 MG TABLET PO SCH ×2 (08:12→16:22)
[2016-05-11] MEDS: ATENOLOL 25 MG TABLET PO SCH (08:12)
[2016-05-11] MEDS: CHOLECALCIFEROL (VIT D3) 1,000 UNITS TABLET PO SCH (08:12)
[2016-05-11] MEDS: TRIAMCINOLONE 0.1% 15 GM OINTMENT TP SCH ×3 (08:13→16:22)
[2016-05-11 08:52] VITALS: BP 126/88
[2016-05-11] MEDS: DIVALPROEX SODIUM 500 MG DR TABLET PO SCH (11:50)
[2016-05-11 16:00] VITALS: BP 137/87
[2016-05-12] MEDS: TOPIRAMATE 100 MG TABLET PO SCH ×2 (07:01→16:56)
[2016-05-12] MEDS: DIVALPROEX SODIUM 500 MG ER TABLET PO SCH ×2 (07:01→21:36)
[2016-05-12] MEDS: ChlorproMAZINE HCL 100 MG TABLET PO SCH ×2 (07:01→12:49)
[2016-05-12 08:08] LABS: BASOPHILS % (AUTO) 0.3 % (0.0-2.0); EOSINOPHILS % (AUTO) 1.2 % (1.0-6.0); HEMATOCRIT 47.2 % (41-53); HEMOGLOBIN 16.3 g/dL (13.5-17.5); LYMPHOCYTES # (AUTO) 1.2 K/uL (1.0-4.8); LYMPHOCYTES % (AUTO) 30.3 % (22.0-44.0); MEAN CORPUSCULAR HEMOGLOBIN 32.8 pg (26.0-34.0); MEAN CORPUSCULAR HGB CONC 34.4 G/dL (31.0-37.0); MEAN CORPUSCULAR VOLUME 95 fL (80-100); MONOCYTES # (AUTO) 0.3 K/uL (0.1-1.0); MONOCYTES % (AUTO) 8.2 % (2.0-9.0); NEUTROPHILS # (AUTO) 2.4 K/uL (1.8-7.7); PLATELET COUNT (AUTO) 113 K/uL (150-450); RED BLOOD CELL COUNT(AUTO) 4.95 MIL/uL (4.50-5.90); RED CELL DISTRIBUTION WIDTH 13.1 % (11.5-14.5); WHITE BLOOD COUNT (AUTO) 3.9 K/uL (4.5-11.0)
[2016-05-12 08:10] VITALS: BP 124/81
[2016-05-12] MEDS: CHOLECALCIFEROL (VIT D3) 1,000 UNITS TABLET PO SCH (08:12)
[2016-05-12] MEDS: TRIHEXYPHENIDYL HCL 5 MG TABLET PO SCH ×2 (08:12→16:57)
[2016-05-12] MEDS: ATENOLOL 25 MG TABLET PO SCH (08:12)
[2016-05-12] MEDS: TRIAMCINOLONE 0.1% 15 GM OINTMENT TP SCH ×3 (08:13→16:57)
[2016-05-12 08:25] LABS: AMYLASE 54 U/L (25-115); VALPROIC ACID 115 mcg/mL (50-100)
[2016-05-12] MEDS: DIVALPROEX SODIUM 500 MG DR TABLET PO SCH (12:49)
[2016-05-12 16:18] VITALS: BP 133/75
[2016-05-13] MEDS: LORazepam 2 MG TABLET PO PRN (06:17)
[2016-05-13] MEDS: HALOPERIDOL 10 MG TABLET PO PRN (06:17)
[2016-05-13] MEDS: TOPIRAMATE 100 MG TABLET PO SCH ×2 (06:50→16:23)
[2016-05-13] MEDS: ChlorproMAZINE HCL 100 MG TABLET PO SCH ×2 (06:50→12:30)
[2016-05-13] MEDS: DIVALPROEX SODIUM 500 MG ER TABLET PO SCH ×2 (06:52→20:45)
[2016-05-13 08:00] VITALS: BP 105/74
[2016-05-13] MEDS: ATENOLOL 25 MG TABLET PO SCH (08:14)
[2016-05-13] MEDS: TRIHEXYPHENIDYL HCL 5 MG TABLET PO SCH ×2 (08:14→16:22)
[2016-05-13] MEDS: CHOLECALCIFEROL (VIT D3) 1,000 UNITS TABLET PO SCH (08:14)
[2016-05-13] MEDS: TRIAMCINOLONE 0.1% 15 GM OINTMENT TP SCH ×3 (09:00→16:23)
[2016-05-13] MEDS: DIVALPROEX SODIUM 500 MG DR TABLET PO SCH (12:30)
[2016-05-13 13:39] LABS: BASOPHILS # (AUTO) 0.02 K/uL (0.00-0.20); BASOPHILS % (AUTO) 0.4 % (0.0-2.0); EOSINOPHILS # (AUTO) 0.04 K/uL (0.00-0.70); EOSINOPHILS % (AUTO) 0.97 % (1.0-6.0); HEMATOCRIT 45.3 % (41-53); HEMOGLOBIN 15.3 g/dL (13.5-17.5); LYMPHOCYTES # (AUTO) 1.3 K/uL (1.0-4.8); LYMPHOCYTES % (AUTO) 29.2 % (22.0-44.0); MEAN CORPUSCULAR HEMOGLOBIN 32.1 pg (26.0-34.0); MEAN CORPUSCULAR HGB CONC 33.8 G/dL (31.0-37.0); MEAN CORPUSCULAR VOLUME 95 fL (80-100); MONOCYTES # (AUTO) 0.4 K/uL (0.1-1.0); MONOCYTES % (AUTO) 8.5 % (2.0-9.0); NEUTROPHILS # (AUTO) 2.7 K/uL (1.8-7.7); NEUTROPHILS % (AUTO) 60.9 % (40.0-70.0); PLATELET COUNT (AUTO) 134 K/uL (150-450); RED BLOOD CELL COUNT(AUTO) 4.78 MIL/uL (4.50-5.90); RED CELL DISTRIBUTION WIDTH 13.3 % (11.5-14.5); WHITE BLOOD COUNT (AUTO) 4.4 K/uL (4.5-11.0)
[2016-05-13 17:36] VITALS: BP 134/90
[2016-05-14] MEDS: TOPIRAMATE 100 MG TABLET PO SCH ×2 (06:54→16:32)
[2016-05-14] MEDS: DIVALPROEX SODIUM 500 MG ER TABLET PO SCH ×2 (06:54→20:45)
[2016-05-14] MEDS: ChlorproMAZINE HCL 100 MG TABLET PO SCH ×2 (06:54→13:26)
[2016-05-14 08:00] VITALS: BP 127/85
[2016-05-14] MEDS: TRIHEXYPHENIDYL HCL 5 MG TABLET PO SCH ×2 (08:27→16:32)
[2016-05-14] MEDS: LORazepam 2 MG TABLET PO PRN (08:27)
[2016-05-14] MEDS: CHOLECALCIFEROL (VIT D3) 1,000 UNITS TABLET PO SCH (08:27)
[2016-05-14] MEDS: TRIAMCINOLONE 0.1% 15 GM OINTMENT TP SCH ×3 (08:27→16:33)
[2016-05-14] MEDS: ATENOLOL 25 MG TABLET PO SCH (08:27)
[2016-05-14] MEDS: DIVALPROEX SODIUM 500 MG DR TABLET PO SCH (13:25)
[2016-05-14 16:54] VITALS: BP 115/61
[2016-05-15] MEDS: ChlorproMAZINE HCL 100 MG TABLET PO SCH ×2 (06:49→13:20)
[2016-05-15] MEDS: TOPIRAMATE 100 MG TABLET PO SCH ×2 (06:49→16:35)
[2016-05-15] MEDS: DIVALPROEX SODIUM 500 MG ER TABLET PO SCH ×2 (06:49→20:23)
[2016-05-15 08:00] VITALS: BP 138/96
[2016-05-15] MEDS: TRIHEXYPHENIDYL HCL 5 MG TABLET PO SCH ×2 (08:05→16:35)
[2016-05-15] MEDS: ATENOLOL 25 MG TABLET PO SCH (08:05)
[2016-05-15] MEDS: CHOLECALCIFEROL (VIT D3) 1,000 UNITS TABLET PO SCH (08:05)
[2016-05-15] MEDS: LORazepam 2 MG TABLET PO PRN (08:05)
[2016-05-15] MEDS: TRIAMCINOLONE 0.1% 15 GM OINTMENT TP SCH ×3 (08:06→16:36)
[2016-05-15] MEDS: DIVALPROEX SODIUM 500 MG DR TABLET PO SCH (13:19)
[2016-05-15 16:55] VITALS: BP 128/93
[2016-05-16] MEDS: DIVALPROEX SODIUM 500 MG ER TABLET PO SCH ×2 (06:49→20:41)
[2016-05-16] MEDS: ChlorproMAZINE HCL 100 MG TABLET PO SCH ×2 (06:49→12:32)
[2016-05-16] MEDS: TOPIRAMATE 100 MG TABLET PO SCH ×2 (06:50→16:49)
[2016-05-16] MEDS: CHOLECALCIFEROL (VIT D3) 1,000 UNITS TABLET PO SCH (08:13)
[2016-05-16] MEDS: ATENOLOL 25 MG TABLET PO SCH (08:13)
[2016-05-16] MEDS: TRIHEXYPHENIDYL HCL 5 MG TABLET PO SCH ×2 (08:13→16:50)
[2016-05-16 08:48] VITALS: BP 118/75
[2016-05-16] MEDS: TRIAMCINOLONE 0.1% 15 GM OINTMENT TP SCH ×3 (09:00→16:50)
[2016-05-16] MEDS: DIVALPROEX SODIUM 500 MG DR TABLET PO SCH (12:37)
[2016-05-16 17:38] VITALS: BP 118/78
[2016-05-17] MEDS: ChlorproMAZINE HCL 100 MG TABLET PO SCH ×2 (06:52→13:30)
[2016-05-17] MEDS: TOPIRAMATE 100 MG TABLET PO SCH ×2 (06:53→16:47)
[2016-05-17] MEDS: DIVALPROEX SODIUM 500 MG ER TABLET PO SCH ×2 (06:53→20:24)
[2016-05-17] MEDS: TRIHEXYPHENIDYL HCL 5 MG TABLET PO SCH ×2 (07:59→16:47)
[2016-05-17] MEDS: ATENOLOL 25 MG TABLET PO SCH (07:59)
[2016-05-17] MEDS: CHOLECALCIFEROL (VIT D3) 1,000 UNITS TABLET PO SCH (07:59)
[2016-05-17] MEDS: TRIAMCINOLONE 0.1% 15 GM OINTMENT TP SCH ×3 (07:59→16:47)
[2016-05-17 09:57] VITALS: BP 137/79
[2016-05-17] MEDS: DIVALPROEX SODIUM 500 MG DR TABLET PO SCH (13:30)
[2016-05-17 16:10] VITALS: BP 108/73
[2016-05-18] MEDS: TOPIRAMATE 100 MG TABLET PO SCH ×2 (06:23→16:45)
[2016-05-18] MEDS: DIVALPROEX SODIUM 500 MG ER TABLET PO SCH ×2 (06:23→21:02)
[2016-05-18] MEDS: ChlorproMAZINE HCL 100 MG TABLET PO SCH ×2 (06:24→12:08)
[2016-05-18 08:08] VITALS: BP 138/83
[2016-05-18] MEDS: CHOLECALCIFEROL (VIT D3) 1,000 UNITS TABLET PO SCH (08:12)
[2016-05-18] MEDS: ATENOLOL 25 MG TABLET PO SCH (08:13)
[2016-05-18] MEDS: TRIAMCINOLONE 0.1% 15 GM OINTMENT TP SCH ×3 (08:13→16:45)
[2016-05-18] MEDS: TRIHEXYPHENIDYL HCL 5 MG TABLET PO SCH ×2 (08:14→16:45)
[2016-05-18] MEDS: DIVALPROEX SODIUM 500 MG DR TABLET PO SCH (12:05)
[2016-05-18 16:00] VITALS: BP 122/77
[2016-05-19] MEDS: ChlorproMAZINE HCL 100 MG TABLET PO SCH ×2 (06:37→12:09)
[2016-05-19] MEDS: TOPIRAMATE 100 MG TABLET PO SCH ×2 (06:37→16:10)
[2016-05-19] MEDS: DIVALPROEX SODIUM 500 MG ER TABLET PO SCH ×2 (06:38→20:18)
[2016-05-19 08:18] VITALS: BP 123/75
[2016-05-19] MEDS: TRIHEXYPHENIDYL HCL 5 MG TABLET PO SCH ×2 (08:50→16:10)
[2016-05-19] MEDS: CHOLECALCIFEROL (VIT D3) 1,000 UNITS TABLET PO SCH (08:50)
[2016-05-19] MEDS: TRIAMCINOLONE 0.1% 15 GM OINTMENT TP SCH ×3 (08:50→16:11)
[2016-05-19] MEDS: ATENOLOL 25 MG TABLET PO SCH (08:50)
[2016-05-19] MEDS: DIVALPROEX SODIUM 250 MG DR TABLET PO SCH (12:09)
[2016-05-19 22:51] VITALS: BP 114/76
[2016-05-20] MEDS: DIVALPROEX SODIUM 500 MG ER TABLET PO SCH ×2 (06:18→21:16)
[2016-05-20] MEDS: TOPIRAMATE 100 MG TABLET PO SCH ×2 (06:18→17:01)
[2016-05-20] MEDS: ChlorproMAZINE HCL 100 MG TABLET PO SCH ×2 (06:19→12:51)
[2016-05-20] MEDS: TRIHEXYPHENIDYL HCL 5 MG TABLET PO SCH ×2 (08:45→17:02)
[2016-05-20] MEDS: CHOLECALCIFEROL (VIT D3) 1,000 UNITS TABLET PO SCH (08:45)
[2016-05-20] MEDS: TRIAMCINOLONE 0.1% 15 GM OINTMENT TP SCH ×3 (08:45→17:02)
[2016-05-20] MEDS: ATENOLOL 25 MG TABLET PO SCH (08:45)
[2016-05-20 09:58] VITALS: BP 128/79
[2016-05-20] MEDS: DIVALPROEX SODIUM 250 MG DR TABLET PO SCH (12:51)
[2016-05-20 16:00] VITALS: BP 118/77
[2016-05-21] MEDS: ChlorproMAZINE HCL 100 MG TABLET PO SCH ×2 (06:42→13:22)
[2016-05-21] MEDS: TOPIRAMATE 100 MG TABLET PO SCH ×2 (06:42→16:23)
[2016-05-21] MEDS: DIVALPROEX SODIUM 500 MG ER TABLET PO SCH ×2 (06:42→20:25)
[2016-05-21 08:00] VITALS: BP 128/80
[2016-05-21] MEDS: CHOLECALCIFEROL (VIT D3) 1,000 UNITS TABLET PO SCH (08:57)
[2016-05-21] MEDS: HALOPERIDOL 10 MG TABLET PO PRN (08:57)
[2016-05-21] MEDS: TRIHEXYPHENIDYL HCL 5 MG TABLET PO SCH ×2 (08:57→16:23)
[2016-05-21] MEDS: ATENOLOL 25 MG TABLET PO SCH (08:57)
[2016-05-21] MEDS: LORazepam 2 MG TABLET PO PRN (08:57)
[2016-05-21] MEDS: TRIAMCINOLONE 0.1% 15 GM OINTMENT TP SCH ×3 (08:58→16:23)
[2016-05-21] MEDS: DIVALPROEX SODIUM 250 MG DR TABLET PO SCH (13:27)
[2016-05-21 16:00] VITALS: BP 124/77
[2016-05-22] MEDS: ChlorproMAZINE HCL 100 MG TABLET PO SCH ×2 (06:41→13:23)
[2016-05-22] MEDS: DIVALPROEX SODIUM 500 MG ER TABLET PO SCH ×2 (06:42→20:36)
[2016-05-22] MEDS: TOPIRAMATE 100 MG TABLET PO SCH ×2 (06:42→16:30)
[2016-05-22 08:01] VITALS: BP 136/90
[2016-05-22] MEDS: TRIAMCINOLONE 0.1% 15 GM OINTMENT TP SCH ×3 (09:00→16:28)
[2016-05-22] MEDS: CHOLECALCIFEROL (VIT D3) 1,000 UNITS TABLET PO SCH (09:52)
[2016-05-22] MEDS: ATENOLOL 25 MG TABLET PO SCH (09:52)
[2016-05-22] MEDS: HALOPERIDOL 10 MG TABLET PO PRN ×2 (09:52→20:35)
[2016-05-22] MEDS: TRIHEXYPHENIDYL HCL 5 MG TABLET PO SCH ×2 (09:52→16:29)
[2016-05-22] MEDS: DIVALPROEX SODIUM 250 MG DR TABLET PO SCH (13:23)
[2016-05-22 16:45] VITALS: BP 116/89
[2016-05-22] MEDS: LORazepam 2 MG TABLET PO PRN (19:33)
[2016-05-22] MEDS: ZOLPIDEM TARTRATE 10 MG TABLET PO PRN (21:25)
[2016-05-23] MEDS: DIVALPROEX SODIUM 500 MG ER TABLET PO SCH ×2 (06:05→20:00)
[2016-05-23] MEDS: TOPIRAMATE 100 MG TABLET PO SCH ×2 (06:05→16:21)
[2016-05-23] MEDS: ChlorproMAZINE HCL 100 MG TABLET PO SCH ×2 (06:05→12:05)
[2016-05-23 08:30] VITALS: BP 133/86
[2016-05-23] MEDS: CHOLECALCIFEROL (VIT D3) 1,000 UNITS TABLET PO SCH (08:38)
[2016-05-23] MEDS: TRIHEXYPHENIDYL HCL 5 MG TABLET PO SCH ×2 (08:39→16:21)
[2016-05-23] MEDS: ATENOLOL 25 MG TABLET PO SCH (08:39)
[2016-05-23] MEDS: TRIAMCINOLONE 0.1% 15 GM OINTMENT TP SCH ×3 (08:44→16:21)
[2016-05-23] MEDS: DIVALPROEX SODIUM 250 MG DR TABLET PO SCH (12:06)
[2016-05-23 16:58] VITALS: BP 120/85
[2016-05-24] MEDS: ChlorproMAZINE HCL 100 MG TABLET PO SCH ×2 (06:26→13:02)
[2016-05-24] MEDS: TOPIRAMATE 100 MG TABLET PO SCH ×2 (06:26→16:14)
[2016-05-24] MEDS: DIVALPROEX SODIUM 500 MG ER TABLET PO SCH ×2 (06:26→20:21)
[2016-05-24] MEDS: HALOPERIDOL 10 MG TABLET PO PRN (08:19)
[2016-05-24] MEDS: ATENOLOL 50 MG TABLET PO SCH (08:19)
[2016-05-24] MEDS: CHOLECALCIFEROL (VIT D3) 1,000 UNITS TABLET PO SCH (08:19)
[2016-05-24] MEDS: TRIHEXYPHENIDYL HCL 5 MG TABLET PO SCH ×2 (08:19→16:14)
[2016-05-24] MEDS: LORazepam 2 MG TABLET PO PRN (08:19)
[2016-05-24] MEDS: TRIAMCINOLONE 0.1% 15 GM OINTMENT TP SCH ×3 (08:20→16:13)
[2016-05-24 09:01] VITALS: BP 132/90
[2016-05-24] MEDS: DIVALPROEX SODIUM 250 MG DR TABLET PO SCH (13:03)
[2016-05-24 19:30] VITALS: BP 127/81
[2016-05-25] MEDS: DIVALPROEX SODIUM 500 MG ER TABLET PO SCH ×2 (06:21→21:31)
[2016-05-25] MEDS: ChlorproMAZINE HCL 100 MG TABLET PO SCH ×2 (06:21→12:35)
[2016-05-25] MEDS: TOPIRAMATE 100 MG TABLET PO SCH ×3 (06:21→16:03)
[2016-05-25] MEDS: ATENOLOL 50 MG TABLET PO SCH (08:28)
[2016-05-25] MEDS: TRIHEXYPHENIDYL HCL 5 MG TABLET PO SCH ×3 (08:28→16:03)
[2016-05-25] MEDS: CHOLECALCIFEROL (VIT D3) 1,000 UNITS TABLET PO SCH (08:29)
[2016-05-25] MEDS: TRIAMCINOLONE 0.1% 15 GM OINTMENT TP SCH ×3 (08:29→15:51)
[2016-05-25 08:40] VITALS: BP 133/89
[2016-05-25] MEDS: DIVALPROEX SODIUM 250 MG DR TABLET PO SCH (12:34)
[2016-05-25 16:00] VITALS: BP 132/90
[2016-05-26] MEDS: ChlorproMAZINE HCL 100 MG TABLET PO SCH ×2 (06:50→13:03)
[2016-05-26] MEDS: TOPIRAMATE 100 MG TABLET PO SCH ×2 (06:51→16:53)
[2016-05-26] MEDS: DIVALPROEX SODIUM 500 MG ER TABLET PO SCH ×2 (06:51→21:33)
[2016-05-26] MEDS: ATENOLOL 50 MG TABLET PO SCH (08:44)
[2016-05-26] MEDS: TRIAMCINOLONE 0.1% 15 GM OINTMENT TP SCH ×3 (08:44→16:53)
[2016-05-26] MEDS: TRIHEXYPHENIDYL HCL 5 MG TABLET PO SCH ×2 (08:44→16:52)
[2016-05-26] MEDS: CHOLECALCIFEROL (VIT D3) 1,000 UNITS TABLET PO SCH (08:44)
[2016-05-26 08:51] VITALS: BP 121/92
[2016-05-26] MEDS: DIVALPROEX SODIUM 250 MG DR TABLET PO SCH (13:03)
[2016-05-26 16:00] VITALS: BP 139/96
[2016-05-27] MEDS: ChlorproMAZINE HCL 100 MG TABLET PO SCH ×2 (06:49→12:22)
[2016-05-27] MEDS: DIVALPROEX SODIUM 500 MG ER TABLET PO SCH ×2 (06:49→20:13)
[2016-05-27] MEDS: TOPIRAMATE 100 MG TABLET PO SCH ×2 (06:50→17:30)
[2016-05-27 08:01] VITALS: BP 133/88
[2016-05-27] MEDS: TRIAMCINOLONE 0.1% 15 GM OINTMENT TP SCH ×3 (09:00→17:00)
[2016-05-27] MEDS: CHOLECALCIFEROL (VIT D3) 1,000 UNITS TABLET PO SCH (09:17)
[2016-05-27] MEDS: TRIHEXYPHENIDYL HCL 5 MG TABLET PO SCH ×2 (09:17→17:29)
[2016-05-27] MEDS: ATENOLOL 50 MG TABLET PO SCH (09:17)
[2016-05-27] MEDS: DIVALPROEX SODIUM 250 MG DR TABLET PO SCH (12:22)
[2016-05-27 16:00] VITALS: BP 140/87
[2016-05-28] MEDS: DIVALPROEX SODIUM 500 MG ER TABLET PO SCH ×2 (06:51→20:42)
[2016-05-28] MEDS: TOPIRAMATE 100 MG TABLET PO SCH ×2 (06:52→16:22)
[2016-05-28] MEDS: ChlorproMAZINE HCL 100 MG TABLET PO SCH ×2 (06:52→12:03)
[2016-05-28 08:10] VITALS: BP 114/68
[2016-05-28] MEDS: TRIHEXYPHENIDYL HCL 5 MG TABLET PO SCH ×2 (08:41→16:22)
[2016-05-28] MEDS: CHOLECALCIFEROL (VIT D3) 1,000 UNITS TABLET PO SCH (08:41)
[2016-05-28] MEDS: ATENOLOL 50 MG TABLET PO SCH (08:41)
[2016-05-28] MEDS: DIVALPROEX SODIUM 250 MG DR TABLET PO SCH (12:03)
[2016-05-28 17:07] VITALS: BP 113/74
[2016-05-29] MEDS: ChlorproMAZINE HCL 100 MG TABLET PO SCH ×2 (06:21→12:00)
[2016-05-29] MEDS: DIVALPROEX SODIUM 500 MG ER TABLET PO SCH ×2 (06:21→20:45)
[2016-05-29] MEDS: TOPIRAMATE 100 MG TABLET PO SCH ×2 (06:21→16:33)
[2016-05-29] MEDS: CHOLECALCIFEROL (VIT D3) 1,000 UNITS TABLET PO SCH (10:07)
[2016-05-29] MEDS: TRIHEXYPHENIDYL HCL 5 MG TABLET PO SCH ×2 (10:07→16:33)
[2016-05-29] MEDS: ATENOLOL 50 MG TABLET PO SCH (10:07)
[2016-05-29] MEDS: DIVALPROEX SODIUM 250 MG DR TABLET PO SCH (12:00)
[2016-05-29 17:00] VITALS: BP 124/71
[2016-05-30] MEDS: ChlorproMAZINE HCL 100 MG TABLET PO SCH ×2 (06:35→13:48)
[2016-05-30] MEDS: DIVALPROEX SODIUM 500 MG ER TABLET PO SCH ×2 (06:35→22:12)
[2016-05-30] MEDS: TOPIRAMATE 100 MG TABLET PO SCH ×2 (06:36→16:20)
[2016-05-30 08:15] VITALS: BP 127/80
[2016-05-30] MEDS: LORazepam 2 MG TABLET PO PRN (08:58)
[2016-05-30] MEDS: TRIHEXYPHENIDYL HCL 5 MG TABLET PO SCH ×2 (09:00→16:19)
[2016-05-30] MEDS: ATENOLOL 50 MG TABLET PO SCH (09:00)
[2016-05-30] MEDS: CHOLECALCIFEROL (VIT D3) 1,000 UNITS TABLET PO SCH (09:00)
[2016-05-30] MEDS: HALOPERIDOL 10 MG TABLET PO PRN (09:30)
[2016-05-30] MEDS: DIVALPROEX SODIUM 250 MG DR TABLET PO SCH (13:48)
[2016-05-30 16:00] VITALS: BP 102/69
[2016-05-31] MEDS: TOPIRAMATE 100 MG TABLET PO SCH ×2 (06:19→16:08)
[2016-05-31] MEDS: ChlorproMAZINE HCL 100 MG TABLET PO SCH ×2 (06:19→13:10)
[2016-05-31] MEDS: DIVALPROEX SODIUM 500 MG ER TABLET PO SCH ×2 (06:20→20:20)
[2016-05-31 08:00] VITALS: BP 120/77
[2016-05-31] MEDS: ATENOLOL 50 MG TABLET PO SCH (08:23)
[2016-05-31] MEDS: LORazepam 2 MG TABLET PO PRN (08:23)
[2016-05-31] MEDS: TRIHEXYPHENIDYL HCL 5 MG TABLET PO SCH ×2 (08:23→16:08)
[2016-05-31] MEDS: CHOLECALCIFEROL (VIT D3) 1,000 UNITS TABLET PO SCH (08:23)
[2016-05-31] MEDS: DIVALPROEX SODIUM 250 MG DR TABLET PO SCH (13:10)
[2016-05-31 16:00] VITALS: BP 123/73
[2016-06-01] MEDS: DIVALPROEX SODIUM 500 MG ER TABLET PO SCH ×2 (06:52→20:53)
[2016-06-01] MEDS: ChlorproMAZINE HCL 100 MG TABLET PO SCH ×2 (06:52→12:20)
[2016-06-01] MEDS: TOPIRAMATE 100 MG TABLET PO SCH ×2 (06:53→16:30)
[2016-06-01 08:05] VITALS: BP 127/77
[2016-06-01] MEDS: TRIHEXYPHENIDYL HCL 5 MG TABLET PO SCH ×2 (09:41→16:30)
[2016-06-01] MEDS: ATENOLOL 50 MG TABLET PO SCH (09:41)
[2016-06-01] MEDS: CHOLECALCIFEROL (VIT D3) 1,000 UNITS TABLET PO SCH (09:41)
[2016-06-01] MEDS: DIVALPROEX SODIUM 250 MG DR TABLET PO SCH (12:20)
[2016-06-01 16:26] VITALS: BP 124/79
[2016-06-01 16:28] VITALS: BP 124/79
[2016-06-02 01:30] VITALS: BP 125/65
[2016-06-02] MEDS: ChlorproMAZINE HCL 100 MG TABLET PO SCH ×2 (07:01→12:09)
[2016-06-02] MEDS: DIVALPROEX SODIUM 500 MG ER TABLET PO SCH ×2 (07:01→20:15)
[2016-06-02] MEDS: TOPIRAMATE 100 MG TABLET PO SCH ×2 (07:01→16:13)
[2016-06-02 08:07] VITALS: BP 131/80
[2016-06-02] MEDS: ATENOLOL 50 MG TABLET PO SCH (08:12)
[2016-06-02] MEDS: CHOLECALCIFEROL (VIT D3) 1,000 UNITS TABLET PO SCH (08:12)
[2016-06-02] MEDS: TRIHEXYPHENIDYL HCL 5 MG TABLET PO SCH ×2 (08:12→16:13)
[2016-06-02] MEDS: LORazepam 2 MG TABLET PO PRN (08:12)
[2016-06-02] MEDS: DIVALPROEX SODIUM 250 MG DR TABLET PO SCH (12:09)
[2016-06-02 16:30] VITALS: BP 124/78
[2016-06-03] MEDS: TOPIRAMATE 100 MG TABLET PO SCH ×2 (06:51→16:20)
[2016-06-03] MEDS: ChlorproMAZINE HCL 100 MG TABLET PO SCH ×2 (06:51→12:06)
[2016-06-03] MEDS: DIVALPROEX SODIUM 500 MG ER TABLET PO SCH ×2 (06:52→20:11)
[2016-06-03 08:16] VITALS: BP 125/75
[2016-06-03] MEDS: ATENOLOL 50 MG TABLET PO SCH (08:25)
[2016-06-03] MEDS: TRIHEXYPHENIDYL HCL 5 MG TABLET PO SCH ×2 (08:25→16:20)
[2016-06-03] MEDS: CHOLECALCIFEROL (VIT D3) 1,000 UNITS TABLET PO SCH (08:25)
[2016-06-03] MEDS: LORazepam 2 MG TABLET PO PRN (08:25)
[2016-06-03] MEDS: DIVALPROEX SODIUM 250 MG DR TABLET PO SCH (12:07)
[2016-06-03 16:19] VITALS: BP 112/75
[2016-06-04] MEDS: ChlorproMAZINE HCL 100 MG TABLET PO SCH ×2 (06:56→12:46)
[2016-06-04] MEDS: TOPIRAMATE 100 MG TABLET PO SCH ×2 (06:56→16:03)
[2016-06-04] MEDS: DIVALPROEX SODIUM 500 MG ER TABLET PO SCH ×2 (06:56→20:36)
[2016-06-04 08:00] VITALS: BP 133/84
[2016-06-04] MEDS: TRIHEXYPHENIDYL HCL 5 MG TABLET PO SCH ×2 (11:14→16:03)
[2016-06-04] MEDS: ATENOLOL 50 MG TABLET PO SCH (11:14)
[2016-06-04] MEDS: CHOLECALCIFEROL (VIT D3) 1,000 UNITS TABLET PO SCH (11:15)
[2016-06-04] MEDS: DIVALPROEX SODIUM 250 MG DR TABLET PO SCH (12:46)
[2016-06-04 18:05] VITALS: BP 126/82
[2016-06-05] MEDS: TOPIRAMATE 100 MG TABLET PO SCH ×2 (06:41→16:32)
[2016-06-05] MEDS: ChlorproMAZINE HCL 100 MG TABLET PO SCH ×2 (06:42→12:37)
[2016-06-05] MEDS: DIVALPROEX SODIUM 500 MG ER TABLET PO SCH ×2 (06:42→20:27)
[2016-06-05 08:02] VITALS: BP 128/87
[2016-06-05] MEDS: TRIHEXYPHENIDYL HCL 5 MG TABLET PO SCH ×2 (11:21→16:32)
[2016-06-05] MEDS: CHOLECALCIFEROL (VIT D3) 1,000 UNITS TABLET PO SCH (11:21)
[2016-06-05] MEDS: ATENOLOL 50 MG TABLET PO SCH (11:22)
[2016-06-05] MEDS: DIVALPROEX SODIUM 250 MG DR TABLET PO SCH (12:37)
[2016-06-05 16:00] VITALS: BP 115/72
[2016-06-06] MEDS: TOPIRAMATE 100 MG TABLET PO SCH ×2 (06:41→16:24)
[2016-06-06] MEDS: ChlorproMAZINE HCL 100 MG TABLET PO SCH ×2 (06:42→12:22)
[2016-06-06] MEDS: DIVALPROEX SODIUM 500 MG ER TABLET PO SCH ×2 (06:42→20:11)
[2016-06-06 07:47] LABS: BASOPHILS # (AUTO) 0.02 K/uL (0.00-0.20); BASOPHILS % (AUTO) 0.4 % (0.0-2.0); EOSINOPHILS # (AUTO) 0.05 K/uL (0.00-0.70); EOSINOPHILS % (AUTO) 1.32 % (1.0-6.0); HEMATOCRIT 47.4 % (41-53); HEMOGLOBIN 16.1 g/dL (13.5-17.5); LYMPHOCYTES # (AUTO) 1.5 K/uL (1.0-4.8); LYMPHOCYTES % (AUTO) 35.6 % (22.0-44.0); MEAN CORPUSCULAR HEMOGLOBIN 32.2 pg (26.0-34.0); MEAN CORPUSCULAR HGB CONC 33.9 G/dL (31.0-37.0); MEAN CORPUSCULAR VOLUME 95 fL (80-100); MONOCYTES # (AUTO) 0.4 K/uL (0.1-1.0); MONOCYTES % (AUTO) 9.2 % (2.0-9.0); NEUTROPHILS # (AUTO) 2.2 K/uL (1.8-7.7); NEUTROPHILS % (AUTO) 53.5 % (40.0-70.0); PLATELET COUNT (AUTO) 134 K/uL (150-450); RED CELL DISTRIBUTION WIDTH 13.3 % (11.5-14.5); WHITE BLOOD COUNT (AUTO) 4.1 K/uL (4.5-11.0)
[2016-06-06 08:07] VITALS: BP 127/82
[2016-06-06 08:08] LABS: AMYLASE 50 U/L (25-115); VALPROIC ACID 96 mcg/mL (50-100)
[2016-06-06] MEDS: TRIHEXYPHENIDYL HCL 5 MG TABLET PO SCH ×2 (08:19→16:24)
[2016-06-06] MEDS: CHOLECALCIFEROL (VIT D3) 1,000 UNITS TABLET PO SCH (08:19)
[2016-06-06] MEDS: ATENOLOL 50 MG TABLET PO SCH (08:20)
[2016-06-06] MEDS: DIVALPROEX SODIUM 250 MG DR TABLET PO SCH (12:21)
[2016-06-06 16:17] VITALS: BP 140/68
[2016-06-07] MEDS: DIVALPROEX SODIUM 500 MG ER TABLET PO SCH ×2 (06:53→20:07)
[2016-06-07] MEDS: ChlorproMAZINE HCL 100 MG TABLET PO SCH ×2 (06:54→12:00)
[2016-06-07] MEDS: TOPIRAMATE 100 MG TABLET PO SCH ×2 (06:54→17:01)
[2016-06-07 08:04] VITALS: BP 115/69
[2016-06-07] MEDS: TRIHEXYPHENIDYL HCL 5 MG TABLET PO SCH ×2 (08:34→17:01)
[2016-06-07] MEDS: CHOLECALCIFEROL (VIT D3) 1,000 UNITS TABLET PO SCH (08:34)
[2016-06-07] MEDS: ATENOLOL 50 MG TABLET PO SCH (08:35)
[2016-06-07] MEDS: DIVALPROEX SODIUM 250 MG DR TABLET PO SCH (12:01)
[2016-06-07] MEDS ORDERED: LORazepam 2 MG/ML VIAL ONE (12:10)
[2016-06-07] MEDS ORDERED: DiphenhydrAMINE HCL 50 MG/ML VIAL ONE (12:11)
[2016-06-07] MEDS ORDERED: DiphenhydrAMINE HCL 50 MG/ML VIAL IM ONE (12:15)
[2016-06-07] MEDS ORDERED: LORazepam 2 MG/ML VIAL IM ONE (12:15)
[2016-06-07] MEDS: LORazepam 2 MG TABLET PO PRN (12:24)
[2016-06-07] MEDS: HALOPERIDOL 10 MG TABLET PO PRN (12:24)
[2016-06-07 16:26] VITALS: BP 125/79
[2016-06-08] MEDS: DIVALPROEX SODIUM 500 MG ER TABLET PO SCH ×2 (06:59→20:05)
[2016-06-08] MEDS: ChlorproMAZINE HCL 100 MG TABLET PO SCH ×2 (06:59→12:19)
[2016-06-08] MEDS: TOPIRAMATE 100 MG TABLET PO SCH ×2 (07:00→16:03)
[2016-06-08 08:07] VITALS: BP 137/96
[2016-06-08] MEDS: CHOLECALCIFEROL (VIT D3) 1,000 UNITS TABLET PO SCH (09:18)
[2016-06-08] MEDS: TRIHEXYPHENIDYL HCL 5 MG TABLET PO SCH ×2 (09:18→16:03)
[2016-06-08] MEDS: ATENOLOL 50 MG TABLET PO SCH (09:19)
[2016-06-08] MEDS: DIVALPROEX SODIUM 250 MG DR TABLET PO SCH (12:19)
[2016-06-08 16:00] VITALS: BP 131/87
[2016-06-09] MEDS: TOPIRAMATE 100 MG TABLET PO SCH ×2 (06:41→16:46)
[2016-06-09] MEDS: DIVALPROEX SODIUM 500 MG ER TABLET PO SCH ×2 (06:41→20:30)
[2016-06-09] MEDS: ChlorproMAZINE HCL 100 MG TABLET PO SCH ×2 (06:41→12:17)
[2016-06-09 08:07] VITALS: BP 112/77
[2016-06-09] MEDS: TRIHEXYPHENIDYL HCL 5 MG TABLET PO SCH ×2 (09:18→16:46)
[2016-06-09] MEDS: ATENOLOL 50 MG TABLET PO SCH (09:18)
[2016-06-09] MEDS: CHOLECALCIFEROL (VIT D3) 1,000 UNITS TABLET PO SCH (09:18)
[2016-06-09] MEDS: DIVALPROEX SODIUM 250 MG DR TABLET PO SCH (12:17)
[2016-06-09] MEDS: HALOPERIDOL 10 MG TABLET PO PRN (15:59)
[2016-06-09 16:00] VITALS: BP 112/70
[2016-06-09] MEDS: LORazepam 2 MG TABLET PO PRN (16:00)
[2016-06-10] MEDS: DIVALPROEX SODIUM 500 MG ER TABLET PO SCH ×2 (06:58→20:12)
[2016-06-10] MEDS: TOPIRAMATE 100 MG TABLET PO SCH ×2 (06:58→17:13)
[2016-06-10] MEDS: ChlorproMAZINE HCL 100 MG TABLET PO SCH ×2 (06:59→13:06)
[2016-06-10] MEDS: CHOLECALCIFEROL (VIT D3) 1,000 UNITS TABLET PO SCH (08:22)
[2016-06-10] MEDS: TRIHEXYPHENIDYL HCL 5 MG TABLET PO SCH ×2 (08:22→17:13)
[2016-06-10] MEDS: ATENOLOL 50 MG TABLET PO SCH (08:22)
[2016-06-10 08:26] VITALS: BP 134/78
[2016-06-10] MEDS: DIVALPROEX SODIUM 250 MG DR TABLET PO SCH (13:07)
[2016-06-10 16:01] VITALS: BP 112/61
[2016-06-11] MEDS: DIVALPROEX SODIUM 500 MG ER TABLET PO SCH ×2 (06:45→20:19)
[2016-06-11] MEDS: ChlorproMAZINE HCL 100 MG TABLET PO SCH ×2 (06:45→12:25)
[2016-06-11] MEDS: TOPIRAMATE 100 MG TABLET PO SCH ×2 (06:46→16:28)
[2016-06-11 08:00] VITALS: BP 135/88
[2016-06-11] MEDS: CHOLECALCIFEROL (VIT D3) 1,000 UNITS TABLET PO SCH (08:29)
[2016-06-11] MEDS: ATENOLOL 50 MG TABLET PO SCH (08:30)
[2016-06-11] MEDS: TRIHEXYPHENIDYL HCL 5 MG TABLET PO SCH ×2 (08:30→16:29)
[2016-06-11] MEDS: DIVALPROEX SODIUM 250 MG DR TABLET PO SCH (12:24)
[2016-06-11 16:16] VITALS: BP 115/74
[2016-06-12] MEDS: ChlorproMAZINE HCL 100 MG TABLET PO SCH ×2 (06:40→13:54)
[2016-06-12] MEDS: TOPIRAMATE 100 MG TABLET PO SCH ×2 (06:41→16:16)
[2016-06-12] MEDS: DIVALPROEX SODIUM 500 MG ER TABLET PO SCH ×2 (06:41→20:31)
[2016-06-12 08:01] VITALS: BP 127/88
[2016-06-12] MEDS: TRIHEXYPHENIDYL HCL 5 MG TABLET PO SCH ×2 (08:37→16:16)
[2016-06-12] MEDS: ATENOLOL 50 MG TABLET PO SCH (08:38)
[2016-06-12] MEDS: CHOLECALCIFEROL (VIT D3) 1,000 UNITS TABLET PO SCH (08:38)
[2016-06-12] MEDS: DIVALPROEX SODIUM 250 MG DR TABLET PO SCH (13:52)
[2016-06-12 17:05] VITALS: BP 138/94
[2016-06-13] MEDS: ChlorproMAZINE HCL 100 MG TABLET PO SCH ×2 (06:35→12:57)
[2016-06-13] MEDS: TOPIRAMATE 100 MG TABLET PO SCH ×2 (06:35→16:36)
[2016-06-13] MEDS: DIVALPROEX SODIUM 500 MG ER TABLET PO SCH ×2 (06:35→20:32)
[2016-06-13 08:01] VITALS: BP 128/84
[2016-06-13] MEDS: CHOLECALCIFEROL (VIT D3) 1,000 UNITS TABLET PO SCH (08:36)
[2016-06-13] MEDS: ATENOLOL 50 MG TABLET PO SCH (08:36)
[2016-06-13] MEDS: TRIHEXYPHENIDYL HCL 5 MG TABLET PO SCH ×2 (08:36→16:36)
[2016-06-13] MEDS: DIVALPROEX SODIUM 250 MG DR TABLET PO SCH (12:57)
[2016-06-13 16:00] VITALS: BP 125/78
[2016-06-14] MEDS: DIVALPROEX SODIUM 500 MG ER TABLET PO SCH ×2 (06:15→20:31)
[2016-06-14] MEDS: TOPIRAMATE 100 MG TABLET PO SCH ×2 (06:16→19:37)
[2016-06-14] MEDS: ChlorproMAZINE HCL 100 MG TABLET PO SCH ×2 (06:16→12:49)
[2016-06-14 08:31] VITALS: BP 131/92
[2016-06-14] MEDS: TRIHEXYPHENIDYL HCL 5 MG TABLET PO SCH ×2 (08:47→19:37)
[2016-06-14] MEDS: CHOLECALCIFEROL (VIT D3) 1,000 UNITS TABLET PO SCH (08:47)
[2016-06-14] MEDS: ATENOLOL 50 MG TABLET PO SCH (09:00)
[2016-06-14] MEDS: DIVALPROEX SODIUM 250 MG DR TABLET PO SCH (12:49)
[2016-06-14 16:00] VITALS: BP 127/83
[2016-06-15] MEDS: DIVALPROEX SODIUM 500 MG ER TABLET PO SCH ×2 (06:12→21:18)
[2016-06-15] MEDS: TOPIRAMATE 100 MG TABLET PO SCH ×2 (06:12→16:14)
[2016-06-15] MEDS: ChlorproMAZINE HCL 100 MG TABLET PO SCH ×2 (06:12→12:47)
[2016-06-15] MEDS: TRIHEXYPHENIDYL HCL 5 MG TABLET PO SCH ×2 (08:19→16:14)
[2016-06-15] MEDS: CHOLECALCIFEROL (VIT D3) 1,000 UNITS TABLET PO SCH (08:19)
[2016-06-15 08:40] VITALS: BP 109/59
[2016-06-15] MEDS: ATENOLOL 50 MG TABLET PO SCH (09:00)
[2016-06-15] MEDS: DIVALPROEX SODIUM 250 MG DR TABLET PO SCH (12:47)
[2016-06-15 16:00] VITALS: BP 134/79
[2016-06-16] MEDS: TOPIRAMATE 100 MG TABLET PO SCH ×2 (06:55→17:12)
[2016-06-16] MEDS: DIVALPROEX SODIUM 500 MG ER TABLET PO SCH ×2 (06:55→20:13)
[2016-06-16] MEDS: ChlorproMAZINE HCL 100 MG TABLET PO SCH ×2 (06:55→12:40)
[2016-06-16 08:27] VITALS: BP 144/72
[2016-06-16] MEDS: TRIHEXYPHENIDYL HCL 5 MG TABLET PO SCH ×2 (08:46→17:12)
[2016-06-16] MEDS: CHOLECALCIFEROL (VIT D3) 1,000 UNITS TABLET PO SCH (08:46)
[2016-06-16] MEDS: ATENOLOL 50 MG TABLET PO SCH (08:46)
[2016-06-16] MEDS: DIVALPROEX SODIUM 250 MG DR TABLET PO SCH (12:40)
[2016-06-16 19:17] VITALS: BP 108/71
[2016-06-17] MEDS: DIVALPROEX SODIUM 500 MG ER TABLET PO SCH ×2 (06:54→22:14)
[2016-06-17] MEDS: ChlorproMAZINE HCL 100 MG TABLET PO SCH ×2 (06:54→12:24)
[2016-06-17] MEDS: TOPIRAMATE 100 MG TABLET PO SCH ×2 (06:55→16:12)
[2016-06-17] MEDS: ATENOLOL 50 MG TABLET PO SCH (08:23)
[2016-06-17] MEDS: LORazepam 2 MG TABLET PO PRN (08:23)
[2016-06-17] MEDS: CHOLECALCIFEROL (VIT D3) 1,000 UNITS TABLET PO SCH (08:23)
[2016-06-17] MEDS: TRIHEXYPHENIDYL HCL 5 MG TABLET PO SCH ×2 (08:24→16:12)
[2016-06-17 08:43] VITALS: BP 120/76
[2016-06-17] MEDS: DIVALPROEX SODIUM 250 MG DR TABLET PO SCH (12:25)
[2016-06-18] MEDS: TOPIRAMATE 100 MG TABLET PO SCH ×2 (06:25→16:06)
[2016-06-18] MEDS: ChlorproMAZINE HCL 100 MG TABLET PO SCH ×2 (06:25→12:42)
[2016-06-18] MEDS: DIVALPROEX SODIUM 500 MG ER TABLET PO SCH ×2 (06:25→20:56)
[2016-06-18 08:36] VITALS: BP 124/76
[2016-06-18] MEDS: TRIHEXYPHENIDYL HCL 5 MG TABLET PO SCH ×2 (08:41→16:06)
[2016-06-18] MEDS: ATENOLOL 50 MG TABLET PO SCH (08:41)
[2016-06-18] MEDS: CHOLECALCIFEROL (VIT D3) 1,000 UNITS TABLET PO SCH (08:41)
[2016-06-18] MEDS: DIVALPROEX SODIUM 250 MG DR TABLET PO SCH (12:42)
[2016-06-18 16:00] VITALS: BP 105/75
[2016-06-18 16:07] VITALS: BP 105/75
[2016-06-19] MEDS: ChlorproMAZINE HCL 100 MG TABLET PO SCH ×2 (06:52→12:15)
[2016-06-19] MEDS: DIVALPROEX SODIUM 500 MG ER TABLET PO SCH ×2 (06:52→21:09)
[2016-06-19] MEDS: TOPIRAMATE 100 MG TABLET PO SCH ×2 (06:52→16:25)
[2016-06-19] MEDS: CHOLECALCIFEROL (VIT D3) 1,000 UNITS TABLET PO SCH (08:17)
[2016-06-19] MEDS: TRIHEXYPHENIDYL HCL 5 MG TABLET PO SCH ×2 (08:18→16:25)
[2016-06-19] MEDS: ATENOLOL 50 MG TABLET PO SCH (08:18)
[2016-06-19 08:22] VITALS: BP 139/74
[2016-06-19] MEDS: DIVALPROEX SODIUM 250 MG DR TABLET PO SCH (12:15)
[2016-06-19 16:00] VITALS: BP 142/77
[2016-06-20] MEDS: DIVALPROEX SODIUM 500 MG ER TABLET PO SCH ×2 (06:38→20:45)
[2016-06-20] MEDS: ChlorproMAZINE HCL 100 MG TABLET PO SCH ×2 (06:39→12:08)
[2016-06-20] MEDS: TOPIRAMATE 100 MG TABLET PO SCH ×2 (06:39→16:12)
[2016-06-20 08:06] VITALS: BP 120/81
[2016-06-20] MEDS: CHOLECALCIFEROL (VIT D3) 1,000 UNITS TABLET PO SCH (08:29)
[2016-06-20] MEDS: TRIHEXYPHENIDYL HCL 5 MG TABLET PO SCH ×2 (08:30→16:13)
[2016-06-20] MEDS: ATENOLOL 50 MG TABLET PO SCH (08:30)
[2016-06-20] MEDS: DIVALPROEX SODIUM 250 MG DR TABLET PO SCH (12:06)
[2016-06-20 16:30] VITALS: BP 102/75
[2016-06-21] MEDS: DIVALPROEX SODIUM 500 MG ER TABLET PO SCH ×2 (06:49→20:05)
[2016-06-21] MEDS: ChlorproMAZINE HCL 100 MG TABLET PO SCH ×2 (06:49→12:27)
[2016-06-21] MEDS: TOPIRAMATE 100 MG TABLET PO SCH ×2 (06:50→16:12)
[2016-06-21 09:44] VITALS: BP 125/81
[2016-06-21] MEDS: TRIHEXYPHENIDYL HCL 5 MG TABLET PO SCH ×2 (10:13→16:12)
[2016-06-21] MEDS: CHOLECALCIFEROL (VIT D3) 1,000 UNITS TABLET PO SCH (10:13)
[2016-06-21] MEDS: ATENOLOL 50 MG TABLET PO SCH (10:13)
[2016-06-21] MEDS: DIVALPROEX SODIUM 250 MG DR TABLET PO SCH (12:27)
[2016-06-21 16:00] VITALS: BP 121/71
[2016-06-22] MEDS: DIVALPROEX SODIUM 500 MG ER TABLET PO SCH ×2 (06:50→20:40)
[2016-06-22] MEDS: ChlorproMAZINE HCL 100 MG TABLET PO SCH ×2 (06:50→12:27)
[2016-06-22] MEDS: TOPIRAMATE 100 MG TABLET PO SCH ×2 (06:51→17:53)
[2016-06-22 09:00] VITALS: BP 124/74
[2016-06-22] MEDS: ATENOLOL 50 MG TABLET PO SCH (09:00)
[2016-06-22] MEDS: TRIHEXYPHENIDYL HCL 5 MG TABLET PO SCH ×2 (09:44→17:53)
[2016-06-22] MEDS: CHOLECALCIFEROL (VIT D3) 1,000 UNITS TABLET PO SCH (09:45)
[2016-06-22] MEDS: DIVALPROEX SODIUM 250 MG DR TABLET PO SCH (12:29)
[2016-06-22 16:00] VITALS: BP 124/88
[2016-06-23] MEDS: ChlorproMAZINE HCL 100 MG TABLET PO SCH ×2 (07:00→12:41)
[2016-06-23] MEDS: DIVALPROEX SODIUM 500 MG ER TABLET PO SCH ×2 (07:00→20:19)
[2016-06-23] MEDS: TOPIRAMATE 100 MG TABLET PO SCH ×2 (07:00→16:12)
[2016-06-23 08:43] VITALS: BP 128/76
[2016-06-23] MEDS: ATENOLOL 50 MG TABLET PO SCH (09:21)
[2016-06-23] MEDS: TRIHEXYPHENIDYL HCL 5 MG TABLET PO SCH ×2 (09:21→16:18)
[2016-06-23] MEDS: CHOLECALCIFEROL (VIT D3) 1,000 UNITS TABLET PO SCH (09:21)
[2016-06-23] MEDS: DIVALPROEX SODIUM 250 MG DR TABLET PO SCH (12:43)
[2016-06-23 17:17] VITALS: BP 113/80
[2016-06-24] MEDS: TOPIRAMATE 100 MG TABLET PO SCH ×2 (06:54→16:14)
[2016-06-24] MEDS: DIVALPROEX SODIUM 500 MG ER TABLET PO SCH ×2 (06:54→21:12)
[2016-06-24] MEDS: ChlorproMAZINE HCL 100 MG TABLET PO SCH ×2 (06:54→12:58)
[2016-06-24] MEDS: CHOLECALCIFEROL (VIT D3) 1,000 UNITS TABLET PO SCH (08:18)
[2016-06-24] MEDS: ATENOLOL 50 MG TABLET PO SCH (08:19)
[2016-06-24] MEDS: TRIHEXYPHENIDYL HCL 5 MG TABLET PO SCH ×2 (08:19→16:13)
[2016-06-24 08:26] VITALS: BP 139/92
[2016-06-24] MEDS: DIVALPROEX SODIUM 250 MG DR TABLET PO SCH (12:58)
[2016-06-24 17:25] VITALS: BP 127/82
[2016-06-25] MEDS: ChlorproMAZINE HCL 100 MG TABLET PO SCH ×2 (06:54→12:21)
[2016-06-25] MEDS: DIVALPROEX SODIUM 500 MG ER TABLET PO SCH ×2 (06:54→20:26)
[2016-06-25] MEDS: TOPIRAMATE 100 MG TABLET PO SCH ×2 (06:54→16:42)
[2016-06-25] MEDS: TRIHEXYPHENIDYL HCL 5 MG TABLET PO SCH ×2 (08:28→16:42)
[2016-06-25] MEDS: CHOLECALCIFEROL (VIT D3) 1,000 UNITS TABLET PO SCH (08:28)
[2016-06-25] MEDS: ATENOLOL 50 MG TABLET PO SCH (08:29)
[2016-06-25 09:00] VITALS: BP 129/84
[2016-06-25] MEDS: DIVALPROEX SODIUM 250 MG DR TABLET PO SCH (12:20)
[2016-06-25 17:03] VITALS: BP 116/75
[2016-06-26] MEDS: TOPIRAMATE 100 MG TABLET PO SCH ×2 (06:42→16:39)
[2016-06-26] MEDS: ChlorproMAZINE HCL 100 MG TABLET PO SCH ×2 (06:42→12:18)
[2016-06-26] MEDS: DIVALPROEX SODIUM 500 MG ER TABLET PO SCH ×2 (06:42→20:36)
[2016-06-26 08:38] VITALS: BP 130/72
[2016-06-26] MEDS: CHOLECALCIFEROL (VIT D3) 1,000 UNITS TABLET PO SCH (09:04)
[2016-06-26] MEDS: ATENOLOL 50 MG TABLET PO SCH (09:05)
[2016-06-26] MEDS: TRIHEXYPHENIDYL HCL 5 MG TABLET PO SCH ×2 (09:05→16:39)
[2016-06-26] MEDS: DIVALPROEX SODIUM 250 MG DR TABLET PO SCH (12:18)
[2016-06-26 16:26] VITALS: BP 126/82
[2016-06-27] MEDS: DIVALPROEX SODIUM 500 MG ER TABLET PO SCH (06:45)
[2016-06-27] MEDS: ChlorproMAZINE HCL 100 MG TABLET PO SCH ×2 (06:45→13:05)
[2016-06-27] MEDS: TOPIRAMATE 100 MG TABLET PO SCH ×2 (06:45→16:26)
[2016-06-27 07:09] LABS: BASOPHILS % (AUTO) 0.3 % (0.0-2.0); EOSINOPHILS % (AUTO) 1.3 % (1.0-6.0); HEMATOCRIT 45.6 % (41-53); HEMOGLOBIN 14.9 g/dL (13.5-17.5); LYMPHOCYTES % (AUTO) 34.1 % (22.0-44.0); MEAN CORPUSCULAR HEMOGLOBIN 31.5 pg (26.0-34.0); MEAN CORPUSCULAR HGB CONC 32.7 G/dL (31.0-37.0); MEAN CORPUSCULAR VOLUME 96 fL (80-100); MONOCYTES # (AUTO) 0.7 K/uL (0.1-1.0); MONOCYTES % (AUTO) 12.2 % (2.0-9.0); NEUTROPHILS # (AUTO) 3.1 K/uL (1.8-7.7); NEUTROPHILS % (AUTO) 52.1 % (40.0-70.0); PLATELET COUNT (AUTO) 114 K/uL (150-450); RED BLOOD CELL COUNT(AUTO) 4.75 MIL/uL (4.50-5.90); RED CELL DISTRIBUTION WIDTH 13.5 % (11.5-14.5); WHITE BLOOD COUNT (AUTO) 5.9 K/uL (4.5-11.0)
[2016-06-27 07:26] LABS: AMYLASE 45 U/L (25-115); VALPROIC ACID 91 mcg/mL (50-100)
[2016-06-27 08:21] VITALS: BP 126/73
[2016-06-27] MEDS: CHOLECALCIFEROL (VIT D3) 1,000 UNITS TABLET PO SCH (08:42)
[2016-06-27] MEDS: ATENOLOL 50 MG TABLET PO SCH (08:42)
[2016-06-27] MEDS: TRIHEXYPHENIDYL HCL 5 MG TABLET PO SCH ×2 (08:42→16:26)
[2016-06-27 16:17] VITALS: BP 106/64
[2016-06-28] MEDS: ChlorproMAZINE HCL 100 MG TABLET PO SCH ×2 (06:32→12:09)
[2016-06-28] MEDS: TOPIRAMATE 100 MG TABLET PO SCH ×2 (06:32→16:25)
[2016-06-28 08:00] VITALS: BP 119/67
[2016-06-28] MEDS: TRIHEXYPHENIDYL HCL 5 MG TABLET PO SCH ×2 (08:25→16:25)
[2016-06-28] MEDS: ATENOLOL 50 MG TABLET PO SCH (08:26)
[2016-06-28] MEDS: CHOLECALCIFEROL (VIT D3) 1,000 UNITS TABLET PO SCH (08:58)
[2016-06-28] MEDS ORDERED: DIVALPROEX SODIUM 250 MG ER TABLET PO ONE (09:00)
[2016-06-28] MEDS ORDERED: DiphenhydrAMINE HCL 50 MG/ML VIAL IM ONE (18:15)
[2016-06-28] MEDS ORDERED: LORazepam 2 MG/ML VIAL IM ONE (18:15)
[2016-06-28 19:00] VITALS: BP 133/86
[2016-06-28] MEDS: ILOPERIDONE 2 MG TABLET PO SCH (20:29)
[2016-06-29] MEDS: TOPIRAMATE 100 MG TABLET PO SCH ×2 (06:54→16:25)
[2016-06-29] MEDS: ChlorproMAZINE HCL 100 MG TABLET PO SCH ×2 (06:54→12:40)
[2016-06-29] MEDS: TRIHEXYPHENIDYL HCL 5 MG TABLET PO SCH ×2 (08:09→16:26)
[2016-06-29] MEDS: ATENOLOL 50 MG TABLET PO SCH (08:09)
[2016-06-29] MEDS: CHOLECALCIFEROL (VIT D3) 1,000 UNITS TABLET PO SCH (08:09)
[2016-06-29] MEDS: ILOPERIDONE 2 MG TABLET PO SCH ×2 (08:09→20:49)
[2016-06-29 12:01] VITALS: BP 131/93
[2016-06-29 20:02] VITALS: BP 127/88
[2016-06-30 06:13] LABS: BASOPHILS % (AUTO) 0.3 % (0.0-2.0); EOSINOPHILS % (AUTO) 1.7 % (1.0-6.0); HEMATOCRIT 46.6 % (41-53); HEMOGLOBIN 15.3 g/dL (13.5-17.5); LYMPHOCYTES % (AUTO) 43.8 % (22.0-44.0); MEAN CORPUSCULAR HEMOGLOBIN 31.6 pg (26.0-34.0); MEAN CORPUSCULAR HGB CONC 32.9 G/dL (31.0-37.0); MEAN CORPUSCULAR VOLUME 96 fL (80-100); MONOCYTES # (AUTO) 0.6 K/uL (0.1-1.0); MONOCYTES % (AUTO) 13.3 % (2.0-9.0); NEUTROPHILS # (AUTO) 1.9 K/uL (1.8-7.7); NEUTROPHILS % (AUTO) 40.9 % (40.0-70.0); PLATELET COUNT (AUTO) 108 K/uL (150-450); RED BLOOD CELL COUNT(AUTO) 4.86 MIL/uL (4.50-5.90); RED CELL DISTRIBUTION WIDTH 13.7 % (11.5-14.5); WHITE BLOOD COUNT (AUTO) 4.6 K/uL (4.5-11.0)
[2016-06-30 06:39] LABS: ALANINE AMINOTRANSFERASE 48 U/L (12-78); ALBUMIN 3.5 g/dL (3.4-5.0); ANION GAP 9 mmol/L (8-16); ASPARTATE AMINOTRANSFERASE 33 U/L (15-37); BILIRUBIN,TOTAL 0.3 mg/dL (0.1-1.0); CARBON DIOXIDE 25 mmol/L (22-29); CHLORIDE 111 mmol/L (98-107); CREATININE 1.08 mg/dL (0.60-1.30); GLOMERULAR FILTR. RATE CALC > 60 mL/min (>60); PHOSPHORUS 5.4 mg/dL (2.5-4.9); POTASSIUM 4.1 mmol/L (3.5-5.1); SODIUM SERUM 145 mmol/L (136-145); TOTAL PROTEIN, SERUM 7.6 g/dL (6.4-8.2); UREA NITROGEN, BLOOD 14 mg/dL (7-18)
[2016-06-30] MEDS: TOPIRAMATE 100 MG TABLET PO SCH ×2 (06:54→16:10)
[2016-06-30] MEDS: ChlorproMAZINE HCL 100 MG TABLET PO SCH ×2 (06:54→12:08)
[2016-06-30] MEDS: ATENOLOL 50 MG TABLET PO SCH (08:14)
[2016-06-30] MEDS: CHOLECALCIFEROL (VIT D3) 1,000 UNITS TABLET PO SCH (08:14)
[2016-06-30] MEDS: TRIHEXYPHENIDYL HCL 5 MG TABLET PO SCH ×2 (08:15→16:11)
[2016-06-30] MEDS ORDERED: ILOPERIDONE 2 MG TABLET PO SCH (09:00)
[2016-06-30 09:35] VITALS: BP 136/91
[2016-06-30 16:08] VITALS: BP 134/87
[2016-07-01] MEDS: TOPIRAMATE 100 MG TABLET PO SCH ×2 (06:55→16:32)
[2016-07-01] MEDS: ChlorproMAZINE HCL 100 MG TABLET PO SCH ×2 (06:55→12:05)
[2016-07-01 08:00] VITALS: BP 129/76
[2016-07-01] MEDS: ILOPERIDONE 2 MG TABLET PO SCH ×2 (08:04→21:43)
[2016-07-01] MEDS: CHOLECALCIFEROL (VIT D3) 1,000 UNITS TABLET PO SCH (08:04)
[2016-07-01] MEDS: ATENOLOL 50 MG TABLET PO SCH (08:05)
[2016-07-01] MEDS: TRIHEXYPHENIDYL HCL 5 MG TABLET PO SCH ×2 (08:05→16:32)
[2016-07-01 16:46] VITALS: BP 118/77
[2016-07-02] MEDS: ChlorproMAZINE HCL 100 MG TABLET PO SCH ×2 (07:03→13:52)
[2016-07-02] MEDS: TOPIRAMATE 100 MG TABLET PO SCH ×2 (07:03→16:15)
[2016-07-02 08:30] VITALS: BP 106/73
[2016-07-02] MEDS: ILOPERIDONE 2 MG TABLET PO SCH ×2 (09:52→20:27)
[2016-07-02] MEDS: TRIHEXYPHENIDYL HCL 5 MG TABLET PO SCH ×2 (09:52→16:15)
[2016-07-02] MEDS: CHOLECALCIFEROL (VIT D3) 1,000 UNITS TABLET PO SCH (09:52)
[2016-07-02] MEDS: ATENOLOL 50 MG TABLET PO SCH (09:52)
[2016-07-02 16:05] VITALS: BP 129/78
[2016-07-02] MEDS: HALOPERIDOL 10 MG TABLET PO PRN (16:33)
[2016-07-02] MEDS: LORazepam 2 MG TABLET PO PRN (16:34)
[2016-07-03] MEDS: ChlorproMAZINE HCL 100 MG TABLET PO SCH ×2 (06:28→12:05)
[2016-07-03] MEDS: TOPIRAMATE 100 MG TABLET PO SCH ×2 (06:28→16:17)
[2016-07-03] MEDS: TRIHEXYPHENIDYL HCL 5 MG TABLET PO SCH ×2 (08:18→16:17)
[2016-07-03] MEDS: CHOLECALCIFEROL (VIT D3) 1,000 UNITS TABLET PO SCH (08:18)
[2016-07-03] MEDS: ATENOLOL 50 MG TABLET PO SCH (08:18)
[2016-07-03] MEDS: ILOPERIDONE 2 MG TABLET PO SCH ×2 (08:18→20:51)
[2016-07-03 08:30] VITALS: BP 118/75
[2016-07-03 17:19] VITALS: BP 123/74
[2016-07-04] MEDS: ZOLPIDEM TARTRATE 10 MG TABLET PO PRN (00:13)
[2016-07-04] MEDS: ChlorproMAZINE HCL 100 MG TABLET PO SCH ×2 (06:42→12:26)
[2016-07-04] MEDS: TOPIRAMATE 100 MG TABLET PO SCH ×2 (06:42→16:18)
[2016-07-04] MEDS: CHOLECALCIFEROL (VIT D3) 1,000 UNITS TABLET PO SCH (08:17)
[2016-07-04] MEDS: TRIHEXYPHENIDYL HCL 5 MG TABLET PO SCH ×2 (08:18→16:19)
[2016-07-04] MEDS: ATENOLOL 50 MG TABLET PO SCH (08:19)
[2016-07-04] MEDS: ILOPERIDONE 2 MG TABLET PO SCH ×2 (08:19→20:11)
[2016-07-04 09:12] VITALS: BP 116/78
[2016-07-04] MEDS: LORazepam 2 MG TABLET PO PRN (18:05)
[2016-07-04] MEDS: HALOPERIDOL 10 MG TABLET PO PRN (18:05)
[2016-07-04 19:00] VITALS: BP 123/78
[2016-07-05] MEDS: TOPIRAMATE 100 MG TABLET PO SCH ×2 (06:37→16:05)
[2016-07-05] MEDS: ChlorproMAZINE HCL 100 MG TABLET PO SCH ×2 (06:37→12:46)
[2016-07-05] MEDS: ILOPERIDONE 4 MG TABLET PO SCH ×2 (08:45→20:22)
[2016-07-05] MEDS: TRIHEXYPHENIDYL HCL 5 MG TABLET PO SCH ×2 (08:45→16:05)
[2016-07-05] MEDS: ATENOLOL 50 MG TABLET PO SCH (08:46)
[2016-07-05] MEDS: LORazepam 2 MG TABLET PO PRN (08:46)
[2016-07-05] MEDS: HALOPERIDOL 10 MG TABLET PO PRN (08:46)
[2016-07-05] MEDS: CHOLECALCIFEROL (VIT D3) 1,000 UNITS TABLET PO SCH (08:47)
[2016-07-05 09:30] VITALS: BP 108/74
[2016-07-06] MEDS: TOPIRAMATE 100 MG TABLET PO SCH ×2 (06:32→16:33)
[2016-07-06] MEDS: ChlorproMAZINE HCL 100 MG TABLET PO SCH ×2 (06:32→12:25)
[2016-07-06] MEDS: TRIHEXYPHENIDYL HCL 5 MG TABLET PO SCH ×2 (08:24→16:33)
[2016-07-06] MEDS: ILOPERIDONE 4 MG TABLET PO SCH ×2 (08:24→21:35)
[2016-07-06] MEDS: CHOLECALCIFEROL (VIT D3) 1,000 UNITS TABLET PO SCH (08:24)
[2016-07-06] MEDS: ATENOLOL 50 MG TABLET PO SCH (08:25)
[2016-07-06 08:30] VITALS: BP 116/66
[2016-07-06 16:03] VITALS: BP 129/83
[2016-07-06] MEDS: ZOLPIDEM TARTRATE 10 MG TABLET PO PRN (21:35)
[2016-07-07] MEDS: TOPIRAMATE 100 MG TABLET PO SCH ×2 (07:03→16:06)
[2016-07-07] MEDS: ChlorproMAZINE HCL 100 MG TABLET PO SCH ×2 (07:03→12:22)
[2016-07-07 07:22] LABS: BASOPHILS % (AUTO) 0.4 % (0.0-2.0); EOSINOPHILS % (AUTO) 1.5 % (1.0-6.0); HEMATOCRIT 44.9 % (41-53); LYMPHOCYTES # (AUTO) 1.6 K/uL (1.0-4.8); LYMPHOCYTES % (AUTO) 31.4 % (22.0-44.0); MEAN CORPUSCULAR HEMOGLOBIN 31.8 pg (26.0-34.0); MEAN CORPUSCULAR HGB CONC 33.3 G/dL (31.0-37.0); MEAN CORPUSCULAR VOLUME 95 fL (80-100); MONOCYTES # (AUTO) 0.6 K/uL (0.1-1.0); MONOCYTES % (AUTO) 10.6 % (2.0-9.0); NEUTROPHILS # (AUTO) 2.9 K/uL (1.8-7.7); NEUTROPHILS % (AUTO) 56.1 % (40.0-70.0); PLATELET COUNT (AUTO) 167 K/uL (150-450); RED BLOOD CELL COUNT(AUTO) 4.71 MIL/uL (4.50-5.90); RED CELL DISTRIBUTION WIDTH 13.5 % (11.5-14.5); WHITE BLOOD COUNT (AUTO) 5.2 K/uL (4.5-11.0)
[2016-07-07] MEDS: TRIHEXYPHENIDYL HCL 5 MG TABLET PO SCH ×2 (08:37→16:09)
[2016-07-07] MEDS: ILOPERIDONE 4 MG TABLET PO SCH ×2 (08:37→20:04)
[2016-07-07] MEDS: CHOLECALCIFEROL (VIT D3) 1,000 UNITS TABLET PO SCH (08:37)
[2016-07-07] MEDS: ATENOLOL 50 MG TABLET PO SCH (08:38)
[2016-07-07 09:00] VITALS: BP 126/75
[2016-07-07 16:00] VITALS: BP 118/76
[2016-07-07] MEDS: LORazepam 2 MG TABLET PO PRN (16:05)
[2016-07-07] MEDS: HALOPERIDOL 10 MG TABLET PO PRN (16:07)
[2016-07-08] MEDS: TOPIRAMATE 100 MG TABLET PO SCH ×2 (06:48→16:12)
[2016-07-08] MEDS: ChlorproMAZINE HCL 100 MG TABLET PO SCH ×2 (06:48→12:52)
[2016-07-08 08:30] VITALS: BP 129/86
[2016-07-08] MEDS: ATENOLOL 50 MG TABLET PO SCH (08:43)
[2016-07-08] MEDS: ILOPERIDONE 4 MG TABLET PO SCH ×2 (08:43→20:04)
[2016-07-08] MEDS: CHOLECALCIFEROL (VIT D3) 1,000 UNITS TABLET PO SCH (08:43)
[2016-07-08] MEDS: TRIHEXYPHENIDYL HCL 5 MG TABLET PO SCH ×2 (08:43→16:12)
[2016-07-08] MEDS ORDERED: ATEN50TA PO (10:55)
[2016-07-08] MEDS ORDERED: ILOP4TAB2 PO (10:56)
[2016-07-08 18:33] VITALS: BP 122/74
[2016-07-09] MEDS: ChlorproMAZINE HCL 100 MG TABLET PO SCH ×2 (06:48→12:09)
[2016-07-09] MEDS: TOPIRAMATE 100 MG TABLET PO SCH ×2 (06:49→16:03)
[2016-07-09 08:00] VITALS: BP 114/76
[2016-07-09] MEDS: TRIHEXYPHENIDYL HCL 5 MG TABLET PO SCH ×2 (08:11→16:03)
[2016-07-09] MEDS: CHOLECALCIFEROL (VIT D3) 1,000 UNITS TABLET PO SCH (08:11)
[2016-07-09] MEDS: ILOPERIDONE 4 MG TABLET PO SCH ×2 (08:11→20:11)
[2016-07-09] MEDS: ATENOLOL 50 MG TABLET PO SCH (08:11)
[2016-07-09 18:24] VITALS: BP 126/81
[2016-07-10] MEDS: TOPIRAMATE 100 MG TABLET PO SCH ×2 (06:45→16:38)
[2016-07-10] MEDS: ChlorproMAZINE HCL 100 MG TABLET PO SCH ×2 (06:45→12:35)
[2016-07-10 08:00] VITALS: BP 126/73
[2016-07-10] MEDS: CHOLECALCIFEROL (VIT D3) 1,000 UNITS TABLET PO SCH (08:39)
[2016-07-10] MEDS: TRIHEXYPHENIDYL HCL 5 MG TABLET PO SCH ×2 (08:39→16:38)
[2016-07-10] MEDS: ILOPERIDONE 4 MG TABLET PO SCH ×2 (08:39→20:33)
[2016-07-10] MEDS: ATENOLOL 50 MG TABLET PO SCH (08:39)
[2016-07-10 17:30] VITALS: BP 123/74
[2016-07-11] MEDS: ChlorproMAZINE HCL 100 MG TABLET PO SCH (06:08)
[2016-07-11] MEDS: TOPIRAMATE 100 MG TABLET PO SCH (06:08)
[2016-07-11 08:06] VITALS: BP 132/76
[2016-07-11] MEDS: CHOLECALCIFEROL (VIT D3) 1,000 UNITS TABLET PO SCH (08:49)
[2016-07-11] MEDS: TRIHEXYPHENIDYL HCL 5 MG TABLET PO SCH (08:49)
[2016-07-11] MEDS: ILOPERIDONE 4 MG TABLET PO SCH (08:50)
[2016-07-11] MEDS: ATENOLOL 50 MG TABLET PO SCH (08:51)
== END 2016-07-11 12:43 | disposition home or self-care (01) | DRG 885 ==
LOC: EMS 21:21 → 3EC 02-24 14:51
PROVIDERS: ADMIT Psychiatry & Neurology Psychiatry; ATTEND Psychiatry & Neurology Psychiatry
DX: F25.0 Schizoaffective disorder, bipolar type (principal); R45.851 Suicidal ideations; F63.81 Intermittent explosive disorder; E55.9 Vitamin D deficiency, unspecified; I10 Essential (primary) hypertension; R00.0 Tachycardia, unspecified; G47.00 Insomnia, unspecified; K59.09 Other constipation; R21 Rash and other nonspecific skin eruption; R51 Headache; D69.59 Other secondary thrombocytopenia; F17.210 Nicotine dependence, cigarettes, uncomplicated; T42.6X5A Adverse effect of other antiepileptic and sedative-hypnotic drugs, initial encounter; K21.9 Gastro-esophageal reflux disease without esophagitis; R45.850 Homicidal ideations; E66.9 Obesity, unspecified; Z91.19 Patient's noncompliance with other medical treatment and regimen; Z68.28 Body mass index [BMI] 28.0-28.9, adult; Z28.21 Immunization not carried out because of patient refusal; Z79.899 Other long term (current) drug therapy; Y92.89 Other specified places as the place of occurrence of the external cause; Y93.89 Activity, other specified; Y99.8 Other external cause status
CPT/HCPCS: 83735; 84100; 87081; 99285; G0480; J1200; J2060; J3230; Q0162

== ENCOUNTER 2019-09-27 11:33 | Inpatient (IN) | payer MEDICARE, MEDICAID ==
[~2019-09-27] VITALS: Ht 172.7 cm; Wt 90.3 kg
[~2019-09-27 11:33] MED LIST changes: +ATEN-72 PO; -CHLO100T24 PO; +CHLO100T31 PO; +CHOL100018 PO; -CLON.1 PO; -CLON.2 PO; -DIVA500T52 PO; -DOCU250C91 PO; -HYDR25TA PO; +ILOP4TAB2 PO; -SIMV-259 PO; -VITAD1000 PO
[2019-09-27] MEDS ORDERED: ZOLPIDEM TARTRATE 10 MG TABLET PO PRN (17:00)
[2019-09-27 17:47] VITALS: BP 135/96
[2019-09-27] MEDS: SIMVASTATIN 20 MG TABLET PO SCH (20:13)
[2019-09-28 01:38] VITALS: BP 122/79
[2019-09-28] MEDS: ATENOLOL 50 MG TABLET PO SCH (08:36)
[2019-09-28 08:51] LABS: BASOPHILS % (AUTO) 0.5 % (0.0-2.0); HEMATOCRIT 45.2 % (41-53); LYMPHOCYTES # (AUTO) 1.3 K/uL (1.0-4.8); LYMPHOCYTES % (AUTO) 26.2 % (22.0-44.0); MEAN CORPUSCULAR HEMOGLOBIN 30.9 pg (26.0-34.0); MEAN CORPUSCULAR HGB CONC 33.3 G/dL (31.0-37.0); MEAN CORPUSCULAR VOLUME 93 fL (80-100); MONOCYTES # (AUTO) 0.4 K/uL (0.1-1.0); MONOCYTES % (AUTO) 9.3 % (2.0-9.0); NEUTROPHILS # (AUTO) 2.9 K/uL (1.8-7.7); PLATELET COUNT (AUTO) 186 K/uL (150-450); RED BLOOD CELL COUNT(AUTO) 4.87 MIL/uL (4.50-5.90); RED CELL DISTRIBUTION WIDTH 13.5 % (11.5-14.5)
[2019-09-28 09:34] LABS: ALANINE AMINOTRANSFERASE 44 U/L (12-78); ALBUMIN 3.8 g/dL (3.4-5.0); ALKALINE PHOSPHATASE 104 U/L (46-116); ANION GAP 15 mmol/L (8-16); ASPARTATE AMINOTRANSFERASE 26 U/L (15-37); BILIRUBIN,TOTAL 0.4 mg/dL (0.1-1.0); CALCIUM, TOTAL 8.4 mg/dL (8.8-10.5); CARBON DIOXIDE 20 mmol/L (22-29); CHLORIDE 107 mmol/L (98-107); CHOL/HDL RATIO 4.7 (4.2-7.3); CHOLESTEROL 136 mg/dL (131-200); CREATININE 1.06 mg/dL (0.60-1.30); FREE T4 (FREE THYROXINE) 0.87 ng/dL (0.76-1.46); GLOMERULAR FILTR. RATE CALC > 60 mL/min (>60); GLUCOSE,RANDOM 78 mg/dL (70-110); HDL CHOLESTEROL 29 mg/dL (40-60); LDL CHOL (CALC.) 71 mg/dL (0-130); POTASSIUM 3.4 mmol/L (3.5-5.1); SODIUM SERUM 142 mmol/L (136-145); THYROID STIMULATING HORMONE 2.05 uIU/mL (0.36-3.74); TOTAL PROTEIN, SERUM 7.5 g/dL (6.4-8.2); TRIGLYCERIDES 182 mg/dL (15-150); UREA NITROGEN, BLOOD 13 mg/dL (7-18)
[2019-09-28 10:10] VITALS: BP 126/87
[2019-09-28] MEDS ORDERED: POTASSIUM CHLORIDE 20 MEQ ER TABLET PO ONE (12:45)
[2019-09-28] MEDS: LORazepam 2 MG TABLET PO PRN (13:08)
[2019-09-28] MEDS: ChlorproMAZINE HCL 100 MG TABLET PO SCH ×3 (13:08→20:11)
[2019-09-28] MEDS: BENZTROPINE MESYLATE 1 MG TABLET PO SCH ×2 (13:09→20:11)
[2019-09-28] MEDS ORDERED: ACETAMINOPHEN 325 MG TABLET PO PRN (14:00)
[2019-09-28] MEDS ORDERED: CloNIDine HCL 0.1 MG TABLET PO PRN (14:00)
[2019-09-28] MEDS ORDERED: ONDANSETRON HCL 4 MG TABLET PO PRN (14:00)
[2019-09-28] MEDS ORDERED: MAG HYDROX/AL HYDROX/SIMETH ES 30 ML SUSPENSION UDCUP PO PRN (14:00)
[2019-09-28] MEDS ORDERED: MAGNESIUM HYDROXIDE SUSPENSION 30 ML UDCUP PO PRN (14:00)
[2019-09-28] MEDS ORDERED: IBUPROFEN 400 MG TABLET PO PRN (14:00)
[2019-09-28] MEDS ORDERED: LOPERAMIDE HCL 2 MG CAPSULE PO PRN (14:00)
[2019-09-28] MEDS ORDERED: DOCUSATE SODIUM 100 MG CAPSULE PO PRN (14:00)
[2019-09-28] MEDS ORDERED: NICOTINE 14 MG/24 HOUR PATCH TD PRN (14:00)
[2019-09-28] MEDS ORDERED: GuaiFENesin/D-METHORPHAN [SUGAR-FREE] 200-20MG/10 ML SYRUP UDCUP PO PRN (14:00)
[2019-09-28] MEDS ORDERED: PETROLATUM,WHITE 28 GM JELLY TP PRN (14:00)
[2019-09-28] MEDS ORDERED: ALBUTEROL SULFATE HFA 90 MCG/PUFF 8 GM INHALER IH PRN (14:00)
[2019-09-28] MEDS: ILOPERIDONE 4 MG TABLET PO SCH ×2 (16:16→20:12)
[2019-09-28 16:24] VITALS: BP 124/88
[2019-09-28] MEDS: SIMVASTATIN 20 MG TABLET PO SCH (20:11)
[2019-09-29 00:24] VITALS: BP 124/80
[2019-09-29 08:40] VITALS: BP 128/78
[2019-09-29] MEDS: CHOLECALCIFEROL (VIT D3) 1,000 UNITS [25 MCG] TABLET PO SCH (08:41)
[2019-09-29] MEDS: ATENOLOL 50 MG TABLET PO SCH (08:41)
[2019-09-29] MEDS: BENZTROPINE MESYLATE 1 MG TABLET PO SCH ×2 (08:41→19:56)
[2019-09-29] MEDS: ChlorproMAZINE HCL 100 MG TABLET PO SCH ×3 (08:41→21:00)
[2019-09-29] MEDS: ILOPERIDONE 4 MG TABLET PO SCH ×2 (08:42→19:56)
[2019-09-29 16:20] VITALS: BP 135/76
[2019-09-29] MEDS: SIMVASTATIN 20 MG TABLET PO SCH (21:00)
[2019-09-29] MEDS ORDERED: LORazepam 2 MG/ML VIAL IM ONE (21:05)
[2019-09-29] MEDS ORDERED: DiphenhydrAMINE HCL 50 MG/ML VIAL IM ONE (21:05)
[2019-09-29] MEDS ORDERED: HALOPERIDOL LACTATE 5 MG/ML VIAL ONE (21:05)
[2019-09-29] MEDS ORDERED: HALOPERIDOL LACTATE 5 MG/ML VIAL IM ONE (21:05)
[2019-09-29] MEDS ORDERED: DiphenhydrAMINE HCL 50 MG/ML VIAL ONE (21:05)
[2019-09-29] MEDS ORDERED: LORazepam 2 MG/ML VIAL ONE (21:06)
[2019-09-29 21:56] VITALS: BP 135/88
[2019-09-30 00:45] VITALS: BP 132/84
[2019-09-30] MEDS: CHOLECALCIFEROL (VIT D3) 1,000 UNITS [25 MCG] TABLET PO SCH (09:00)
[2019-09-30] MEDS: ATENOLOL 50 MG TABLET PO SCH (09:00)
[2019-09-30] MEDS: ChlorproMAZINE HCL 100 MG TABLET PO SCH ×3 (09:00→21:00)
[2019-09-30] MEDS: ILOPERIDONE 4 MG TABLET PO SCH ×2 (09:00→21:00)
[2019-09-30] MEDS: BENZTROPINE MESYLATE 1 MG TABLET PO SCH ×2 (09:00→21:00)
[2019-09-30 09:38] VITALS: BP 157/105
[2019-09-30 16:27] VITALS: BP 116/78
[2019-09-30] MEDS: SIMVASTATIN 20 MG TABLET PO SCH (21:00)
[2019-10-01 00:26] VITALS: BP 110/78
[2019-10-01 08:33] VITALS: BP 140/96
[2019-10-01] MEDS: ChlorproMAZINE HCL 100 MG TABLET PO SCH ×3 (08:37→20:33)
[2019-10-01] MEDS: CHOLECALCIFEROL (VIT D3) 1,000 UNITS [25 MCG] TABLET PO SCH (08:37)
[2019-10-01] MEDS: ILOPERIDONE 4 MG TABLET PO SCH ×2 (08:37→20:33)
[2019-10-01] MEDS: BENZTROPINE MESYLATE 1 MG TABLET PO SCH ×2 (08:38→20:33)
[2019-10-01] MEDS: ATENOLOL 50 MG TABLET PO SCH (08:38)
[2019-10-01 16:10] VITALS: BP 122/86
[2019-10-01] MEDS: SIMVASTATIN 20 MG TABLET PO SCH (20:33)
[2019-10-02] MEDS: ATENOLOL 50 MG TABLET PO SCH (08:11)
[2019-10-02] MEDS: CHOLECALCIFEROL (VIT D3) 1,000 UNITS [25 MCG] TABLET PO SCH (08:11)
[2019-10-02] MEDS: ILOPERIDONE 4 MG TABLET PO SCH ×2 (08:11→21:14)
[2019-10-02] MEDS: BENZTROPINE MESYLATE 1 MG TABLET PO SCH ×2 (08:12→21:10)
[2019-10-02] MEDS: ChlorproMAZINE HCL 100 MG TABLET PO SCH ×3 (08:12→21:10)
[2019-10-02 08:57] VITALS: BP 133/80
[2019-10-02] MEDS: HALOPERIDOL 5 MG TABLET PO PRN (10:21)
[2019-10-02] MEDS: SIMVASTATIN 20 MG TABLET PO SCH (21:09)
[2019-10-03 06:27] VITALS: BP 118/86
[2019-10-03] MEDS: ChlorproMAZINE HCL 100 MG TABLET PO SCH ×3 (08:13→20:30)
[2019-10-03] MEDS: BENZTROPINE MESYLATE 1 MG TABLET PO SCH ×2 (08:13→20:31)
[2019-10-03] MEDS: CHOLECALCIFEROL (VIT D3) 1,000 UNITS [25 MCG] TABLET PO SCH (08:13)
[2019-10-03] MEDS: ILOPERIDONE 4 MG TABLET PO SCH ×2 (08:13→20:30)
[2019-10-03] MEDS: ATENOLOL 50 MG TABLET PO SCH (08:13)
[2019-10-03 08:22] VITALS: BP 136/89
[2019-10-03 16:10] VITALS: BP 119/79
[2019-10-03] MEDS: SIMVASTATIN 20 MG TABLET PO SCH (20:31)
[2019-10-04 00:20] VITALS: BP 117/70
[2019-10-04 08:18] VITALS: BP 116/84
[2019-10-04] MEDS: CHOLECALCIFEROL (VIT D3) 1,000 UNITS [25 MCG] TABLET PO SCH (08:24)
[2019-10-04] MEDS: ILOPERIDONE 4 MG TABLET PO SCH ×2 (08:24→20:41)
[2019-10-04] MEDS: BENZTROPINE MESYLATE 1 MG TABLET PO SCH ×2 (08:25→20:41)
[2019-10-04] MEDS: ATENOLOL 50 MG TABLET PO SCH (08:25)
[2019-10-04] MEDS: ChlorproMAZINE HCL 100 MG TABLET PO SCH ×3 (08:25→20:41)
[2019-10-04] MEDS ORDERED: HALOPERIDOL LACTATE 5 MG/ML VIAL ONE (14:01)
[2019-10-04] MEDS ORDERED: DiphenhydrAMINE HCL 50 MG/ML VIAL ONE (14:01)
[2019-10-04] MEDS ORDERED: LORazepam 2 MG/ML VIAL ONE (14:01)
[2019-10-04] MEDS: LORazepam 2 MG/ML VIAL IM ONE ×2 (14:10→14:19)
[2019-10-04] MEDS ORDERED: DiphenhydrAMINE HCL 50 MG/ML VIAL IM ONE (14:15)
[2019-10-04] MEDS ORDERED: HALOPERIDOL LACTATE 5 MG/ML VIAL IM ONE (14:15)
[2019-10-04 16:37] VITALS: BP 116/76
[2019-10-04] MEDS: SIMVASTATIN 20 MG TABLET PO SCH (20:41)
[2019-10-05 01:41] VITALS: BP 120/78
[2019-10-05] MEDS: CHOLECALCIFEROL (VIT D3) 1,000 UNITS [25 MCG] TABLET PO SCH (08:09)
[2019-10-05] MEDS: ATENOLOL 50 MG TABLET PO SCH (08:09)
[2019-10-05] MEDS: ChlorproMAZINE HCL 100 MG TABLET PO SCH ×3 (08:09→20:34)
[2019-10-05] MEDS: BENZTROPINE MESYLATE 1 MG TABLET PO SCH ×2 (08:09→20:28)
[2019-10-05] MEDS: ILOPERIDONE 4 MG TABLET PO SCH ×2 (08:09→20:27)
[2019-10-05 08:38] VITALS: BP 116/79
[2019-10-05 16:00] VITALS: BP 142/98
[2019-10-05] MEDS: DIVALPROEX SODIUM 500 MG DR TABLET PO SCH (20:28)
[2019-10-05] MEDS: SIMVASTATIN 20 MG TABLET PO SCH (20:28)
[2019-10-06 01:32] VITALS: BP 130/77
[2019-10-06 08:53] VITALS: BP 107/72
[2019-10-06] MEDS: CHOLECALCIFEROL (VIT D3) 1,000 UNITS [25 MCG] TABLET PO SCH (09:22)
[2019-10-06] MEDS: BENZTROPINE MESYLATE 1 MG TABLET PO SCH ×2 (09:22→20:38)
[2019-10-06] MEDS: ATENOLOL 50 MG TABLET PO SCH (09:22)
[2019-10-06] MEDS: DIVALPROEX SODIUM 500 MG DR TABLET PO SCH ×2 (09:22→20:38)
[2019-10-06] MEDS: ChlorproMAZINE HCL 100 MG TABLET PO SCH ×3 (09:22→20:38)
[2019-10-06] MEDS: ILOPERIDONE 4 MG TABLET PO SCH ×2 (09:23→20:38)
[2019-10-06] MEDS ORDERED: LORazepam 2 MG/ML VIAL ONE (15:43)
[2019-10-06] MEDS ORDERED: ChlorproMAZINE HCL 50 MG/2 ML AMP ONE (15:43)
[2019-10-06] MEDS ORDERED: DiphenhydrAMINE HCL 50 MG/ML VIAL ONE (15:43)
[2019-10-06] MEDS ORDERED: DiphenhydrAMINE HCL 50 MG/ML VIAL IM ONE (16:00)
[2019-10-06] MEDS ORDERED: LORazepam 2 MG/ML VIAL IM ONE (16:00)
[2019-10-06] MEDS ORDERED: ChlorproMAZINE HCL 50 MG/2 ML AMP IM ONE (16:00)
[2019-10-06 17:36] VITALS: BP 139/95
[2019-10-06] MEDS: SIMVASTATIN 20 MG TABLET PO SCH (20:38)
[2019-10-07 04:30] VITALS: BP 132/88
[2019-10-07] MEDS: ChlorproMAZINE HCL 100 MG TABLET PO SCH ×3 (09:14→21:05)
[2019-10-07] MEDS: ILOPERIDONE 4 MG TABLET PO SCH ×2 (09:14→21:06)
[2019-10-07] MEDS: CHOLECALCIFEROL (VIT D3) 1,000 UNITS [25 MCG] TABLET PO SCH (09:14)
[2019-10-07] MEDS: ATENOLOL 50 MG TABLET PO SCH (09:14)
[2019-10-07] MEDS: BENZTROPINE MESYLATE 1 MG TABLET PO SCH ×2 (09:14→21:06)
[2019-10-07] MEDS: DIVALPROEX SODIUM 500 MG DR TABLET PO SCH ×2 (09:14→21:26)
[2019-10-07 16:47] VITALS: BP 127/78
[2019-10-07] MEDS: HALOPERIDOL 5 MG TABLET PO PRN (18:05)
[2019-10-07] MEDS: LORazepam 2 MG TABLET PO PRN (18:05)
[2019-10-07] MEDS: SIMVASTATIN 20 MG TABLET PO SCH (21:06)
[2019-10-08 00:16] VITALS: BP 127/72
[2019-10-08 08:11] VITALS: BP 120/76
[2019-10-08] MEDS: ATENOLOL 50 MG TABLET PO SCH (09:02)
[2019-10-08] MEDS: CHOLECALCIFEROL (VIT D3) 1,000 UNITS [25 MCG] TABLET PO SCH (09:02)
[2019-10-08] MEDS: BENZTROPINE MESYLATE 1 MG TABLET PO SCH ×2 (09:03→20:08)
[2019-10-08] MEDS: DIVALPROEX SODIUM 500 MG DR TABLET PO SCH ×2 (09:03→20:08)
[2019-10-08] MEDS: ChlorproMAZINE HCL 100 MG TABLET PO SCH ×3 (09:03→20:08)
[2019-10-08] MEDS: ILOPERIDONE 4 MG TABLET PO SCH ×2 (09:03→20:06)
[2019-10-08 16:30] VITALS: BP 112/72
[2019-10-08] MEDS: LORazepam 2 MG TABLET PO PRN (16:55)
[2019-10-08] MEDS: SIMVASTATIN 20 MG TABLET PO SCH (20:08)
[2019-10-09 00:12] VITALS: BP 111/72
[2019-10-09 08:09] VITALS: BP 121/76
[2019-10-09] MEDS: DIVALPROEX SODIUM 500 MG DR TABLET PO SCH ×2 (09:11→20:28)
[2019-10-09] MEDS: ILOPERIDONE 4 MG TABLET PO SCH ×2 (09:11→20:29)
[2019-10-09] MEDS: BENZTROPINE MESYLATE 1 MG TABLET PO SCH ×2 (09:11→20:29)
[2019-10-09] MEDS: ATENOLOL 50 MG TABLET PO SCH (09:11)
[2019-10-09] MEDS: CHOLECALCIFEROL (VIT D3) 1,000 UNITS [25 MCG] TABLET PO SCH (09:11)
[2019-10-09] MEDS: ChlorproMAZINE HCL 100 MG TABLET PO SCH ×3 (09:11→20:29)
[2019-10-09 16:16] VITALS: BP 122/76
[2019-10-09] MEDS: SIMVASTATIN 20 MG TABLET PO SCH (20:28)
[2019-10-10 05:26] VITALS: BP 109/70
[2019-10-10] MEDS: ATENOLOL 50 MG TABLET PO SCH (08:26)
[2019-10-10] MEDS: ChlorproMAZINE HCL 100 MG TABLET PO SCH ×3 (08:26→20:30)
[2019-10-10] MEDS: BENZTROPINE MESYLATE 1 MG TABLET PO SCH ×2 (08:27→20:31)
[2019-10-10] MEDS: DIVALPROEX SODIUM 500 MG DR TABLET PO SCH ×2 (08:27→20:30)
[2019-10-10] MEDS: ILOPERIDONE 4 MG TABLET PO SCH ×2 (08:27→20:30)
[2019-10-10] MEDS: CHOLECALCIFEROL (VIT D3) 1,000 UNITS [25 MCG] TABLET PO SCH (08:27)
[2019-10-10 08:47] VITALS: BP 108/61
[2019-10-10 16:18] VITALS: BP 114/72
[2019-10-10] MEDS: SIMVASTATIN 20 MG TABLET PO SCH (20:30)
[2019-10-11 06:30] VITALS: BP 119/80
[2019-10-11] MEDS: CHOLECALCIFEROL (VIT D3) 1,000 UNITS [25 MCG] TABLET PO SCH (08:38)
[2019-10-11] MEDS: BENZTROPINE MESYLATE 1 MG TABLET PO SCH ×2 (08:38→21:06)
[2019-10-11] MEDS: DIVALPROEX SODIUM 500 MG DR TABLET PO SCH ×2 (08:38→20:55)
[2019-10-11] MEDS: ATENOLOL 50 MG TABLET PO SCH (08:38)
[2019-10-11] MEDS: ChlorproMAZINE HCL 100 MG TABLET PO SCH ×4 (08:38→20:53)
[2019-10-11 08:40] VITALS: BP 124/84
[2019-10-11] MEDS: ILOPERIDONE 4 MG TABLET PO SCH ×2 (09:34→20:55)
[2019-10-11 16:08] VITALS: BP 128/76
[2019-10-11] MEDS: SIMVASTATIN 20 MG TABLET PO SCH (20:55)
[2019-10-12 05:24] VITALS: BP 114/65
[2019-10-12] MEDS: ATENOLOL 50 MG TABLET PO SCH (08:38)
[2019-10-12] MEDS: CHOLECALCIFEROL (VIT D3) 1,000 UNITS [25 MCG] TABLET PO SCH (08:38)
[2019-10-12] MEDS: ChlorproMAZINE HCL 100 MG TABLET PO SCH ×3 (08:39→20:40)
[2019-10-12] MEDS: BENZTROPINE MESYLATE 1 MG TABLET PO SCH ×2 (08:43→20:40)
[2019-10-12] MEDS: DIVALPROEX SODIUM 500 MG DR TABLET PO SCH ×2 (08:44→20:40)
[2019-10-12] MEDS: ILOPERIDONE 4 MG TABLET PO SCH ×2 (08:45→20:40)
[2019-10-12 09:00] VITALS: BP 125/85
[2019-10-12 16:21] VITALS: BP 119/72
[2019-10-12] MEDS: SIMVASTATIN 20 MG TABLET PO SCH (20:39)
[2019-10-13 06:04] VITALS: BP 132/85
[2019-10-13 08:07] VITALS: BP 115/82
[2019-10-13] MEDS: DIVALPROEX SODIUM 500 MG DR TABLET PO SCH ×2 (08:39→20:29)
[2019-10-13] MEDS: ChlorproMAZINE HCL 100 MG TABLET PO SCH ×3 (08:39→20:29)
[2019-10-13] MEDS: ILOPERIDONE 4 MG TABLET PO SCH ×2 (08:39→20:29)
[2019-10-13] MEDS: CHOLECALCIFEROL (VIT D3) 1,000 UNITS [25 MCG] TABLET PO SCH (08:40)
[2019-10-13] MEDS: ATENOLOL 50 MG TABLET PO SCH (08:40)
[2019-10-13] MEDS: BENZTROPINE MESYLATE 1 MG TABLET PO SCH ×2 (08:40→20:29)
[2019-10-13 16:30] VITALS: BP 116/85
[2019-10-13] MEDS: SIMVASTATIN 20 MG TABLET PO SCH (20:29)
[2019-10-14 06:12] VITALS: BP 124/84
[2019-10-14] MEDS: DIVALPROEX SODIUM 500 MG DR TABLET PO SCH ×2 (08:43→20:27)
[2019-10-14] MEDS: BENZTROPINE MESYLATE 1 MG TABLET PO SCH ×2 (08:43→20:28)
[2019-10-14] MEDS: ATENOLOL 50 MG TABLET PO SCH (08:43)
[2019-10-14] MEDS: CHOLECALCIFEROL (VIT D3) 1,000 UNITS [25 MCG] TABLET PO SCH (08:43)
[2019-10-14] MEDS: ILOPERIDONE 4 MG TABLET PO SCH ×2 (08:44→20:27)
[2019-10-14] MEDS: ChlorproMAZINE HCL 100 MG TABLET PO SCH ×3 (08:46→20:27)
[2019-10-14] MEDS: OMEGA-3/DHA/EPA/FISH OIL 1,000 MG CAPSULE PO SCH (08:46)
[2019-10-14 08:52] VITALS: BP 134/81
[2019-10-14 16:07] VITALS: BP 112/65
[2019-10-14] MEDS: SIMVASTATIN 20 MG TABLET PO SCH (20:28)
[2019-10-15 00:31] VITALS: BP 133/93
[2019-10-15] MEDS: ILOPERIDONE 4 MG TABLET PO SCH ×2 (08:07→20:33)
[2019-10-15] MEDS: BENZTROPINE MESYLATE 1 MG TABLET PO SCH ×2 (08:07→20:33)
[2019-10-15] MEDS: ATENOLOL 50 MG TABLET PO SCH (08:07)
[2019-10-15] MEDS: CHOLECALCIFEROL (VIT D3) 1,000 UNITS [25 MCG] TABLET PO SCH (08:07)
[2019-10-15] MEDS: ChlorproMAZINE HCL 100 MG TABLET PO SCH ×3 (08:08→20:33)
[2019-10-15] MEDS: DIVALPROEX SODIUM 500 MG DR TABLET PO SCH ×2 (08:09→20:33)
[2019-10-15 08:30] VITALS: BP 125/79
[2019-10-15] MEDS: OMEGA-3/DHA/EPA/FISH OIL 1,000 MG CAPSULE PO SCH (12:15)
[2019-10-15 16:57] VITALS: BP 108/75
[2019-10-15] MEDS: SIMVASTATIN 20 MG TABLET PO SCH (20:33)
[2019-10-16 00:25] VITALS: BP 136/76
[2019-10-16 08:21] VITALS: BP 125/60
[2019-10-16] MEDS: OMEGA-3/DHA/EPA/FISH OIL 1,000 MG CAPSULE PO SCH (08:39)
[2019-10-16] MEDS: BENZTROPINE MESYLATE 1 MG TABLET PO SCH ×2 (08:39→20:10)
[2019-10-16] MEDS: ATENOLOL 50 MG TABLET PO SCH (08:39)
[2019-10-16] MEDS: DIVALPROEX SODIUM 500 MG DR TABLET PO SCH ×2 (08:39→20:10)
[2019-10-16] MEDS: CHOLECALCIFEROL (VIT D3) 1,000 UNITS [25 MCG] TABLET PO SCH (08:39)
[2019-10-16] MEDS: ChlorproMAZINE HCL 100 MG TABLET PO SCH ×3 (08:39→21:04)
[2019-10-16] MEDS: ILOPERIDONE 4 MG TABLET PO SCH ×2 (08:40→20:11)
[2019-10-16 16:27] VITALS: BP 103/63
[2019-10-16] MEDS: SIMVASTATIN 20 MG TABLET PO SCH (21:04)
[2019-10-17 06:23] VITALS: BP 133/96
[2019-10-17 08:17] VITALS: BP 125/87
[2019-10-17] MEDS: DIVALPROEX SODIUM 500 MG DR TABLET PO SCH ×3 (08:32→22:08)
[2019-10-17] MEDS: OMEGA-3/DHA/EPA/FISH OIL 1,000 MG CAPSULE PO SCH (08:32)
[2019-10-17] MEDS: ChlorproMAZINE HCL 100 MG TABLET PO SCH ×4 (08:32→22:09)
[2019-10-17] MEDS: BENZTROPINE MESYLATE 1 MG TABLET PO SCH ×3 (08:33→22:09)
[2019-10-17] MEDS: ATENOLOL 50 MG TABLET PO SCH (08:33)
[2019-10-17] MEDS: CHOLECALCIFEROL (VIT D3) 1,000 UNITS [25 MCG] TABLET PO SCH (08:33)
[2019-10-17] MEDS: ILOPERIDONE 4 MG TABLET PO SCH ×3 (08:39→22:09)
[2019-10-17 16:05] VITALS: BP 126/85
[2019-10-17] MEDS: SIMVASTATIN 20 MG TABLET PO SCH ×2 (20:45→22:09)
[2019-10-18 04:00] VITALS: BP 118/84
[2019-10-18 08:00] VITALS: BP 140/76
[2019-10-18] MEDS: ATENOLOL 50 MG TABLET PO SCH (08:14)
[2019-10-18] MEDS: OMEGA-3/DHA/EPA/FISH OIL 1,000 MG CAPSULE PO SCH (08:14)
[2019-10-18] MEDS: BENZTROPINE MESYLATE 1 MG TABLET PO SCH ×2 (08:14→20:32)
[2019-10-18] MEDS: ChlorproMAZINE HCL 100 MG TABLET PO SCH ×3 (08:14→20:32)
[2019-10-18] MEDS: CHOLECALCIFEROL (VIT D3) 1,000 UNITS [25 MCG] TABLET PO SCH (08:14)
[2019-10-18] MEDS: DIVALPROEX SODIUM 500 MG DR TABLET PO SCH ×2 (08:14→20:32)
[2019-10-18 08:48] VITALS: BP 102/79
[2019-10-18] MEDS: ILOPERIDONE 4 MG TABLET PO SCH ×2 (09:13→20:31)
[2019-10-18 16:07] VITALS: BP 109/68
[2019-10-18] MEDS: SIMVASTATIN 20 MG TABLET PO SCH (20:31)
[2019-10-19 06:52] VITALS: BP 134/84
[2019-10-19 08:30] VITALS: BP 144/94
[2019-10-19] MEDS: ATENOLOL 50 MG TABLET PO SCH (08:36)
[2019-10-19] MEDS: BENZTROPINE MESYLATE 1 MG TABLET PO SCH ×2 (08:36→20:56)
[2019-10-19] MEDS: ILOPERIDONE 4 MG TABLET PO SCH ×2 (08:36→20:57)
[2019-10-19] MEDS: DIVALPROEX SODIUM 500 MG DR TABLET PO SCH ×2 (08:36→20:56)
[2019-10-19] MEDS: CHOLECALCIFEROL (VIT D3) 1,000 UNITS [25 MCG] TABLET PO SCH (08:36)
[2019-10-19] MEDS: ChlorproMAZINE HCL 100 MG TABLET PO SCH ×3 (08:37→20:56)
[2019-10-19] MEDS: OMEGA-3/DHA/EPA/FISH OIL 1,000 MG CAPSULE PO SCH (08:37)
[2019-10-19 16:22] VITALS: BP 110/68
[2019-10-19] MEDS: SIMVASTATIN 20 MG TABLET PO SCH (20:56)
[2019-10-20 06:42] VITALS: BP 115/86
[2019-10-20] MEDS: OMEGA-3/DHA/EPA/FISH OIL 1,000 MG CAPSULE PO SCH (08:18)
[2019-10-20] MEDS: ChlorproMAZINE HCL 100 MG TABLET PO SCH ×3 (08:18→20:39)
[2019-10-20] MEDS: CHOLECALCIFEROL (VIT D3) 1,000 UNITS [25 MCG] TABLET PO SCH (08:19)
[2019-10-20] MEDS: ATENOLOL 50 MG TABLET PO SCH (08:19)
[2019-10-20] MEDS: BENZTROPINE MESYLATE 1 MG TABLET PO SCH ×2 (08:19→20:40)
[2019-10-20] MEDS: ILOPERIDONE 4 MG TABLET PO SCH ×2 (08:19→20:40)
[2019-10-20] MEDS: DIVALPROEX SODIUM 500 MG DR TABLET PO SCH ×2 (08:19→20:40)
[2019-10-20 09:13] VITALS: BP 128/74
[2019-10-20 17:20] VITALS: BP 111/78
[2019-10-20] MEDS: SIMVASTATIN 20 MG TABLET PO SCH (20:40)
[2019-10-21 06:41] VITALS: BP 128/74
[2019-10-21 08:16] VITALS: BP 124/77
[2019-10-21] MEDS: ILOPERIDONE 4 MG TABLET PO SCH ×2 (08:41→20:09)
[2019-10-21] MEDS: DIVALPROEX SODIUM 500 MG DR TABLET PO SCH ×2 (08:41→20:09)
[2019-10-21] MEDS: BENZTROPINE MESYLATE 1 MG TABLET PO SCH ×2 (08:42→20:09)
[2019-10-21] MEDS: ChlorproMAZINE HCL 100 MG TABLET PO SCH ×3 (08:42→20:10)
[2019-10-21] MEDS: CHOLECALCIFEROL (VIT D3) 1,000 UNITS [25 MCG] TABLET PO SCH (08:42)
[2019-10-21] MEDS: ATENOLOL 50 MG TABLET PO SCH (08:42)
[2019-10-21] MEDS: OMEGA-3/DHA/EPA/FISH OIL 1,000 MG CAPSULE PO SCH (08:43)
[2019-10-21 16:05] VITALS: BP 109/66
[2019-10-21] MEDS: SIMVASTATIN 20 MG TABLET PO SCH (20:09)
[2019-10-22 05:44] VITALS: BP 113/71
[2019-10-22 08:22] VITALS: BP 128/81
[2019-10-22] MEDS: CHOLECALCIFEROL (VIT D3) 1,000 UNITS [25 MCG] TABLET PO SCH (08:55)
[2019-10-22] MEDS: ATENOLOL 50 MG TABLET PO SCH (08:55)
[2019-10-22] MEDS: DIVALPROEX SODIUM 500 MG DR TABLET PO SCH ×2 (08:55→20:28)
[2019-10-22] MEDS: BENZTROPINE MESYLATE 1 MG TABLET PO SCH ×2 (08:55→20:28)
[2019-10-22] MEDS: ILOPERIDONE 4 MG TABLET PO SCH ×2 (08:56→20:29)
[2019-10-22] MEDS: OMEGA-3/DHA/EPA/FISH OIL 1,000 MG CAPSULE PO SCH (08:57)
[2019-10-22] MEDS: ChlorproMAZINE HCL 100 MG TABLET PO SCH ×3 (09:58→20:28)
[2019-10-22 16:08] VITALS: BP 118/76
[2019-10-22] MEDS: SIMVASTATIN 20 MG TABLET PO SCH (20:28)
[2019-10-23 05:28] VITALS: BP 126/77
[2019-10-23] MEDS: CHOLECALCIFEROL (VIT D3) 1,000 UNITS [25 MCG] TABLET PO SCH (08:31)
[2019-10-23] MEDS: ChlorproMAZINE HCL 100 MG TABLET PO SCH ×3 (08:35→20:07)
[2019-10-23] MEDS: OMEGA-3/DHA/EPA/FISH OIL 1,000 MG CAPSULE PO SCH (08:35)
[2019-10-23] MEDS: BENZTROPINE MESYLATE 1 MG TABLET PO SCH ×2 (08:35→20:07)
[2019-10-23] MEDS: ILOPERIDONE 4 MG TABLET PO SCH ×2 (08:36→20:08)
[2019-10-23] MEDS: ATENOLOL 50 MG TABLET PO SCH (08:36)
[2019-10-23] MEDS: DIVALPROEX SODIUM 500 MG DR TABLET PO SCH ×2 (08:36→20:07)
[2019-10-23 08:59] VITALS: BP 135/89
[2019-10-23 16:00] VITALS: BP 110/80
[2019-10-23] MEDS: SIMVASTATIN 20 MG TABLET PO SCH (20:08)
[2019-10-24 05:40] VITALS: BP 123/75
[2019-10-24 08:09] VITALS: BP 133/86
[2019-10-24] MEDS: DIVALPROEX SODIUM 500 MG DR TABLET PO SCH ×2 (08:18→20:03)
[2019-10-24] MEDS: OMEGA-3/DHA/EPA/FISH OIL 1,000 MG CAPSULE PO SCH (08:18)
[2019-10-24] MEDS: CHOLECALCIFEROL (VIT D3) 1,000 UNITS [25 MCG] TABLET PO SCH (08:18)
[2019-10-24] MEDS: ChlorproMAZINE HCL 100 MG TABLET PO SCH ×3 (08:18→20:03)
[2019-10-24] MEDS: BENZTROPINE MESYLATE 1 MG TABLET PO SCH ×2 (08:18→20:03)
[2019-10-24] MEDS: ILOPERIDONE 4 MG TABLET PO SCH ×2 (08:19→20:03)
[2019-10-24] MEDS: ATENOLOL 50 MG TABLET PO SCH (08:24)
[2019-10-24 16:05] VITALS: BP 107/74
[2019-10-24] MEDS ORDERED: LORazepam 2 MG/ML VIAL ONE (17:19)
[2019-10-24] MEDS ORDERED: DiphenhydrAMINE HCL 50 MG/ML VIAL ONE (17:19)
[2019-10-24] MEDS ORDERED: HALOPERIDOL LACTATE 5 MG/ML VIAL ONE (17:19)
[2019-10-24] MEDS ORDERED: DiphenhydrAMINE HCL 50 MG/ML VIAL IM ONE (17:30)
[2019-10-24] MEDS ORDERED: HALOPERIDOL LACTATE 5 MG/ML VIAL IM ONE (17:30)
[2019-10-24] MEDS ORDERED: LORazepam 2 MG/ML VIAL IM ONE (17:30)
[2019-10-24] MEDS: SIMVASTATIN 20 MG TABLET PO SCH (20:03)
[2019-10-25 01:11] VITALS: BP 110/72
[2019-10-25 08:19] VITALS: BP 126/81
[2019-10-25] MEDS: OMEGA-3/DHA/EPA/FISH OIL 1,000 MG CAPSULE PO SCH (08:40)
[2019-10-25] MEDS: ATENOLOL 50 MG TABLET PO SCH (08:41)
[2019-10-25] MEDS: CHOLECALCIFEROL (VIT D3) 1,000 UNITS [25 MCG] TABLET PO SCH (08:41)
[2019-10-25] MEDS: DIVALPROEX SODIUM 500 MG DR TABLET PO SCH ×2 (08:41→20:04)
[2019-10-25] MEDS: BENZTROPINE MESYLATE 1 MG TABLET PO SCH ×2 (08:42→20:04)
[2019-10-25] MEDS: ChlorproMAZINE HCL 100 MG TABLET PO SCH ×3 (08:42→20:04)
[2019-10-25] MEDS: ILOPERIDONE 4 MG TABLET PO SCH ×2 (08:42→20:04)
[2019-10-25 16:50] VITALS: BP 125/77
[2019-10-25] MEDS: SIMVASTATIN 20 MG TABLET PO SCH (20:04)
[2019-10-26 05:23] VITALS: BP 115/77
[2019-10-26 08:18] VITALS: BP 119/75
[2019-10-26] MEDS: BACITRACIN 28.4 GM OINTMENT TP SCH ×2 (08:40→16:35)
[2019-10-26] MEDS: BENZTROPINE MESYLATE 1 MG TABLET PO SCH ×2 (08:40→20:25)
[2019-10-26] MEDS: ILOPERIDONE 4 MG TABLET PO SCH ×2 (08:40→20:24)
[2019-10-26] MEDS: CHOLECALCIFEROL (VIT D3) 1,000 UNITS [25 MCG] TABLET PO SCH (08:40)
[2019-10-26] MEDS: ChlorproMAZINE HCL 100 MG TABLET PO SCH ×3 (08:40→20:25)
[2019-10-26] MEDS: DIVALPROEX SODIUM 500 MG DR TABLET PO SCH ×2 (08:40→20:25)
[2019-10-26] MEDS: OMEGA-3/DHA/EPA/FISH OIL 1,000 MG CAPSULE PO SCH (08:40)
[2019-10-26] MEDS: ATENOLOL 50 MG TABLET PO SCH (08:41)
[2019-10-26 17:11] VITALS: BP 116/55
[2019-10-26] MEDS: SIMVASTATIN 20 MG TABLET PO SCH (20:25)
[2019-10-27 06:14] VITALS: BP 133/96
[2019-10-27 08:13] VITALS: BP 131/93
[2019-10-27] MEDS: BENZTROPINE MESYLATE 1 MG TABLET PO SCH ×2 (09:38→20:37)
[2019-10-27] MEDS: CHOLECALCIFEROL (VIT D3) 1,000 UNITS [25 MCG] TABLET PO SCH (09:38)
[2019-10-27] MEDS: OMEGA-3/DHA/EPA/FISH OIL 1,000 MG CAPSULE PO SCH (09:38)
[2019-10-27] MEDS: DIVALPROEX SODIUM 500 MG DR TABLET PO SCH ×2 (09:38→20:37)
[2019-10-27] MEDS: ATENOLOL 50 MG TABLET PO SCH (09:38)
[2019-10-27] MEDS: ILOPERIDONE 4 MG TABLET PO SCH ×2 (09:38→20:38)
[2019-10-27] MEDS: ChlorproMAZINE HCL 100 MG TABLET PO SCH ×3 (09:39→20:37)
[2019-10-27] MEDS: BACITRACIN 28.4 GM OINTMENT TP SCH ×2 (09:40→16:33)
[2019-10-27 16:28] VITALS: BP 131/78
[2019-10-27] MEDS: SIMVASTATIN 20 MG TABLET PO SCH (20:37)
[2019-10-28 05:24] VITALS: BP 119/77
[2019-10-28] MEDS: DIVALPROEX SODIUM 500 MG DR TABLET PO SCH ×2 (08:35→20:29)
[2019-10-28] MEDS: OMEGA-3/DHA/EPA/FISH OIL 1,000 MG CAPSULE PO SCH (08:35)
[2019-10-28] MEDS: CHOLECALCIFEROL (VIT D3) 1,000 UNITS [25 MCG] TABLET PO SCH (08:35)
[2019-10-28] MEDS: ChlorproMAZINE HCL 100 MG TABLET PO SCH ×3 (08:35→20:30)
[2019-10-28] MEDS: BACITRACIN 28.4 GM OINTMENT TP SCH ×2 (08:36→16:28)
[2019-10-28] MEDS: ATENOLOL 50 MG TABLET PO SCH (08:36)
[2019-10-28] MEDS: BENZTROPINE MESYLATE 1 MG TABLET PO SCH ×2 (08:36→20:29)
[2019-10-28 08:37] VITALS: BP 119/68
[2019-10-28] MEDS: ILOPERIDONE 4 MG TABLET PO SCH ×2 (09:00→20:32)
[2019-10-28 16:09] VITALS: BP 121/78
[2019-10-28] MEDS: SIMVASTATIN 20 MG TABLET PO SCH (21:07)
[2019-10-29 06:20] VITALS: BP 128/84
[2019-10-29] MEDS: CHOLECALCIFEROL (VIT D3) 1,000 UNITS [25 MCG] TABLET PO SCH (08:14)
[2019-10-29] MEDS: BENZTROPINE MESYLATE 1 MG TABLET PO SCH ×2 (08:14→20:26)
[2019-10-29] MEDS: DIVALPROEX SODIUM 500 MG DR TABLET PO SCH ×2 (08:14→20:26)
[2019-10-29] MEDS: ILOPERIDONE 4 MG TABLET PO SCH ×2 (08:15→20:27)
[2019-10-29] MEDS: ATENOLOL 50 MG TABLET PO SCH (08:16)
[2019-10-29] MEDS: ChlorproMAZINE HCL 100 MG TABLET PO SCH ×3 (08:17→20:26)
[2019-10-29] MEDS: OMEGA-3/DHA/EPA/FISH OIL 1,000 MG CAPSULE PO SCH (08:17)
[2019-10-29 08:38] VITALS: BP 115/70
[2019-10-29] MEDS: BACITRACIN 28.4 GM OINTMENT TP SCH ×2 (09:00→16:31)
[2019-10-29 16:17] VITALS: BP 118/72
[2019-10-29] MEDS: SIMVASTATIN 20 MG TABLET PO SCH (20:26)
[2019-10-30 05:28] VITALS: BP 114/70
[2019-10-30 07:59] VITALS: BP 120/59
[2019-10-30] MEDS: BENZTROPINE MESYLATE 1 MG TABLET PO SCH ×2 (08:17→20:14)
[2019-10-30] MEDS: DIVALPROEX SODIUM 500 MG DR TABLET PO SCH ×2 (08:17→20:15)
[2019-10-30] MEDS: ChlorproMAZINE HCL 100 MG TABLET PO SCH ×3 (08:17→20:14)
[2019-10-30] MEDS: CHOLECALCIFEROL (VIT D3) 1,000 UNITS [25 MCG] TABLET PO SCH (08:17)
[2019-10-30] MEDS: OMEGA-3/DHA/EPA/FISH OIL 1,000 MG CAPSULE PO SCH (08:17)
[2019-10-30] MEDS: ATENOLOL 50 MG TABLET PO SCH (08:17)
[2019-10-30] MEDS: ILOPERIDONE 4 MG TABLET PO SCH ×2 (08:22→20:15)
[2019-10-30] MEDS: BACITRACIN 28.4 GM OINTMENT TP SCH ×2 (08:24→16:47)
[2019-10-30 16:11] VITALS: BP 128/82
[2019-10-30] MEDS: SIMVASTATIN 20 MG TABLET PO SCH (20:15)
[2019-10-31 01:41] VITALS: BP 127/95
[2019-10-31 08:02] VITALS: BP 118/64
[2019-10-31] MEDS: ILOPERIDONE 4 MG TABLET PO SCH ×2 (08:44→20:36)
[2019-10-31] MEDS: DIVALPROEX SODIUM 500 MG DR TABLET PO SCH ×2 (08:49→20:37)
[2019-10-31] MEDS: ChlorproMAZINE HCL 100 MG TABLET PO SCH ×3 (08:49→20:37)
[2019-10-31] MEDS: CHOLECALCIFEROL (VIT D3) 1,000 UNITS [25 MCG] TABLET PO SCH (08:49)
[2019-10-31] MEDS: OMEGA-3/DHA/EPA/FISH OIL 1,000 MG CAPSULE PO SCH (08:49)
[2019-10-31] MEDS: ATENOLOL 50 MG TABLET PO SCH (08:49)
[2019-10-31] MEDS: BENZTROPINE MESYLATE 1 MG TABLET PO SCH ×2 (08:49→20:37)
[2019-10-31] MEDS: BACITRACIN 28.4 GM OINTMENT TP SCH ×2 (09:52→16:33)
[2019-10-31 16:08] VITALS: BP 109/64
[2019-10-31] MEDS: SIMVASTATIN 20 MG TABLET PO SCH (20:36)
[2019-11-01 00:23] VITALS: BP 115/68
[2019-11-01 08:19] VITALS: BP 124/83
[2019-11-01] MEDS: CHOLECALCIFEROL (VIT D3) 1,000 UNITS [25 MCG] TABLET PO SCH (08:57)
[2019-11-01] MEDS: ChlorproMAZINE HCL 100 MG TABLET PO SCH ×3 (08:57→20:28)
[2019-11-01] MEDS: OMEGA-3/DHA/EPA/FISH OIL 1,000 MG CAPSULE PO SCH (08:57)
[2019-11-01] MEDS: DIVALPROEX SODIUM 500 MG DR TABLET PO SCH ×2 (08:57→20:28)
[2019-11-01] MEDS: ATENOLOL 50 MG TABLET PO SCH (08:57)
[2019-11-01] MEDS: BENZTROPINE MESYLATE 1 MG TABLET PO SCH ×2 (08:57→20:28)
[2019-11-01] MEDS: ILOPERIDONE 4 MG TABLET PO SCH ×2 (08:59→20:28)
[2019-11-01] MEDS: BACITRACIN 28.4 GM OINTMENT TP SCH ×2 (09:12→16:27)
[2019-11-01 16:00] VITALS: BP 110/72
[2019-11-01] MEDS: SIMVASTATIN 20 MG TABLET PO SCH (20:28)
[2019-11-02 05:24] VITALS: BP 135/99
[2019-11-02 08:00] VITALS: BP 135/82
[2019-11-02] MEDS: ATENOLOL 50 MG TABLET PO SCH (08:17)
[2019-11-02] MEDS: DIVALPROEX SODIUM 500 MG DR TABLET PO SCH ×2 (08:17→20:30)
[2019-11-02] MEDS: BENZTROPINE MESYLATE 1 MG TABLET PO SCH ×2 (08:18→20:30)
[2019-11-02] MEDS: CHOLECALCIFEROL (VIT D3) 1,000 UNITS [25 MCG] TABLET PO SCH (08:18)
[2019-11-02] MEDS: ILOPERIDONE 4 MG TABLET PO SCH ×2 (08:19→20:31)
[2019-11-02] MEDS: ChlorproMAZINE HCL 100 MG TABLET PO SCH ×3 (08:35→20:30)
[2019-11-02] MEDS: OMEGA-3/DHA/EPA/FISH OIL 1,000 MG CAPSULE PO SCH (10:01)
[2019-11-02] MEDS: BACITRACIN 28.4 GM OINTMENT TP SCH ×2 (10:02→16:55)
[2019-11-02 16:10] VITALS: BP 124/79
[2019-11-02] MEDS: SIMVASTATIN 20 MG TABLET PO SCH (20:30)
[2019-11-03 05:13] VITALS: BP 132/82
[2019-11-03 08:02] VITALS: BP 139/89
[2019-11-03] MEDS: BACITRACIN 28.4 GM OINTMENT TP SCH ×2 (09:23→16:06)
[2019-11-03] MEDS: ATENOLOL 50 MG TABLET PO SCH (09:24)
[2019-11-03] MEDS: ChlorproMAZINE HCL 100 MG TABLET PO SCH ×3 (09:24→20:02)
[2019-11-03] MEDS: CHOLECALCIFEROL (VIT D3) 1,000 UNITS [25 MCG] TABLET PO SCH (09:24)
[2019-11-03] MEDS: DIVALPROEX SODIUM 500 MG DR TABLET PO SCH ×2 (09:24→20:02)
[2019-11-03] MEDS: BENZTROPINE MESYLATE 1 MG TABLET PO SCH ×2 (09:24→20:02)
[2019-11-03] MEDS: OMEGA-3/DHA/EPA/FISH OIL 1,000 MG CAPSULE PO SCH (09:24)
[2019-11-03] MEDS: ILOPERIDONE 4 MG TABLET PO SCH ×2 (09:27→20:03)
[2019-11-03 16:02] VITALS: BP 127/87
[2019-11-03] MEDS: SIMVASTATIN 20 MG TABLET PO SCH (20:02)
[2019-11-04 00:09] VITALS: BP 137/82
[2019-11-04 08:14] VITALS: BP 131/93
[2019-11-04] MEDS: ILOPERIDONE 4 MG TABLET PO SCH ×2 (09:31→20:32)
[2019-11-04] MEDS: OMEGA-3/DHA/EPA/FISH OIL 1,000 MG CAPSULE PO SCH (09:32)
[2019-11-04] MEDS: BENZTROPINE MESYLATE 1 MG TABLET PO SCH ×2 (09:33→20:33)
[2019-11-04] MEDS: ChlorproMAZINE HCL 100 MG TABLET PO SCH ×3 (09:33→23:03)
[2019-11-04] MEDS: BACITRACIN 28.4 GM OINTMENT TP SCH ×2 (09:34→16:57)
[2019-11-04] MEDS: DIVALPROEX SODIUM 500 MG DR TABLET PO SCH ×2 (09:34→20:33)
[2019-11-04] MEDS: ATENOLOL 50 MG TABLET PO SCH (09:35)
[2019-11-04] MEDS: CHOLECALCIFEROL (VIT D3) 1,000 UNITS [25 MCG] TABLET PO SCH (09:35)
[2019-11-04 16:07] VITALS: BP 107/68
[2019-11-04] MEDS: SIMVASTATIN 20 MG TABLET PO SCH (20:33)
[2019-11-05 00:01] VITALS: BP 139/99
[2019-11-05 08:29] VITALS: BP 110/70
[2019-11-05] MEDS: BENZTROPINE MESYLATE 1 MG TABLET PO SCH ×2 (09:32→20:35)
[2019-11-05] MEDS: ATENOLOL 50 MG TABLET PO SCH (09:32)
[2019-11-05] MEDS: OMEGA-3/DHA/EPA/FISH OIL 1,000 MG CAPSULE PO SCH (09:32)
[2019-11-05] MEDS: BACITRACIN 28.4 GM OINTMENT TP SCH ×2 (09:33→16:28)
[2019-11-05] MEDS: ChlorproMAZINE HCL 100 MG TABLET PO SCH ×3 (09:33→20:35)
[2019-11-05] MEDS: ILOPERIDONE 4 MG TABLET PO SCH ×2 (09:33→20:35)
[2019-11-05] MEDS: DIVALPROEX SODIUM 500 MG DR TABLET PO SCH ×2 (09:33→20:34)
[2019-11-05] MEDS: CHOLECALCIFEROL (VIT D3) 1,000 UNITS [25 MCG] TABLET PO SCH (09:34)
[2019-11-05 17:53] VITALS: BP 133/79
[2019-11-05] MEDS: SIMVASTATIN 20 MG TABLET PO SCH (20:35)
[2019-11-06 00:34] VITALS: BP 129/82
[2019-11-06 08:16] VITALS: BP 125/78
[2019-11-06] MEDS: BENZTROPINE MESYLATE 1 MG TABLET PO SCH ×2 (09:20→20:39)
[2019-11-06] MEDS: DIVALPROEX SODIUM 500 MG DR TABLET PO SCH ×2 (09:20→20:39)
[2019-11-06] MEDS: ChlorproMAZINE HCL 100 MG TABLET PO SCH ×3 (09:20→20:39)
[2019-11-06] MEDS: ATENOLOL 50 MG TABLET PO SCH (09:20)
[2019-11-06] MEDS: CHOLECALCIFEROL (VIT D3) 1,000 UNITS [25 MCG] TABLET PO SCH (09:20)
[2019-11-06] MEDS: OMEGA-3/DHA/EPA/FISH OIL 1,000 MG CAPSULE PO SCH (09:20)
[2019-11-06] MEDS: ILOPERIDONE 4 MG TABLET PO SCH ×2 (09:21→20:39)
[2019-11-06] MEDS: BACITRACIN 28.4 GM OINTMENT TP SCH ×2 (09:21→17:04)
[2019-11-06 16:08] VITALS: BP 109/67
[2019-11-06] MEDS: SIMVASTATIN 20 MG TABLET PO SCH (20:39)
[2019-11-07 05:32] VITALS: BP 112/71
[2019-11-07 08:23] VITALS: BP 122/93
[2019-11-07] MEDS: ILOPERIDONE 4 MG TABLET PO SCH ×2 (09:14→20:39)
[2019-11-07] MEDS: BENZTROPINE MESYLATE 1 MG TABLET PO SCH ×2 (09:14→20:37)
[2019-11-07] MEDS: DIVALPROEX SODIUM 500 MG DR TABLET PO SCH ×2 (09:14→20:37)
[2019-11-07] MEDS: ChlorproMAZINE HCL 100 MG TABLET PO SCH ×3 (09:14→20:37)
[2019-11-07] MEDS: ATENOLOL 50 MG TABLET PO SCH (09:14)
[2019-11-07] MEDS: CHOLECALCIFEROL (VIT D3) 1,000 UNITS [25 MCG] TABLET PO SCH (09:14)
[2019-11-07] MEDS: OMEGA-3/DHA/EPA/FISH OIL 1,000 MG CAPSULE PO SCH (09:14)
[2019-11-07] MEDS: BACITRACIN 28.4 GM OINTMENT TP SCH ×2 (09:23→16:54)
[2019-11-07 16:19] VITALS: BP 115/77
[2019-11-07] MEDS: SIMVASTATIN 20 MG TABLET PO SCH (20:37)
[2019-11-08 00:13] VITALS: BP 106/61
[2019-11-08] MEDS: DIVALPROEX SODIUM 500 MG DR TABLET PO SCH ×2 (08:15→20:35)
[2019-11-08] MEDS: CHOLECALCIFEROL (VIT D3) 1,000 UNITS [25 MCG] TABLET PO SCH (08:15)
[2019-11-08] MEDS: ATENOLOL 50 MG TABLET PO SCH (08:15)
[2019-11-08] MEDS: BENZTROPINE MESYLATE 1 MG TABLET PO SCH ×2 (08:15→20:35)
[2019-11-08] MEDS: OMEGA-3/DHA/EPA/FISH OIL 1,000 MG CAPSULE PO SCH (08:16)
[2019-11-08] MEDS: ILOPERIDONE 4 MG TABLET PO SCH ×2 (08:16→20:36)
[2019-11-08] MEDS: BACITRACIN 28.4 GM OINTMENT TP SCH ×2 (08:17→16:10)
[2019-11-08] MEDS: ChlorproMAZINE HCL 100 MG TABLET PO SCH ×3 (08:17→20:36)
[2019-11-08 08:29] VITALS: BP 126/89
[2019-11-08 16:06] VITALS: BP 115/85
[2019-11-08] MEDS ORDERED: HALOPERIDOL LACTATE 5 MG/ML VIAL ONE (20:35)
[2019-11-08] MEDS ORDERED: LORazepam 2 MG/ML VIAL ONE (20:35)
[2019-11-08] MEDS ORDERED: DiphenhydrAMINE HCL 50 MG/ML VIAL ONE (20:35)
[2019-11-08] MEDS: SIMVASTATIN 20 MG TABLET PO SCH (20:36)
[2019-11-08] MEDS ORDERED: DiphenhydrAMINE HCL 50 MG/ML VIAL IM ONE (20:45)
[2019-11-08] MEDS ORDERED: HALOPERIDOL LACTATE 5 MG/ML VIAL IM ONE (20:45)
[2019-11-08] MEDS ORDERED: LORazepam 2 MG/ML VIAL IM ONE (20:45)
[2019-11-09 00:03] VITALS: BP 119/68
[2019-11-09 08:21] VITALS: BP 123/82
[2019-11-09] MEDS: ChlorproMAZINE HCL 100 MG TABLET PO SCH ×3 (08:34→20:27)
[2019-11-09] MEDS: CHOLECALCIFEROL (VIT D3) 1,000 UNITS [25 MCG] TABLET PO SCH (08:34)
[2019-11-09] MEDS: BENZTROPINE MESYLATE 1 MG TABLET PO SCH ×2 (08:34→20:27)
[2019-11-09] MEDS: ILOPERIDONE 4 MG TABLET PO SCH ×2 (08:35→20:27)
[2019-11-09] MEDS: OMEGA-3/DHA/EPA/FISH OIL 1,000 MG CAPSULE PO SCH (08:35)
[2019-11-09] MEDS: DIVALPROEX SODIUM 500 MG DR TABLET PO SCH ×2 (08:35→20:27)
[2019-11-09] MEDS: ATENOLOL 50 MG TABLET PO SCH (08:35)
[2019-11-09] MEDS: BACITRACIN 28.4 GM OINTMENT TP SCH ×2 (08:37→16:31)
[2019-11-09 16:02] VITALS: BP 113/77
[2019-11-09] MEDS: SIMVASTATIN 20 MG TABLET PO SCH (20:27)
[2019-11-10 05:34] VITALS: BP 112/79
[2019-11-10 08:01] VITALS: BP 112/72
[2019-11-10] MEDS: DIVALPROEX SODIUM 500 MG DR TABLET PO SCH ×2 (08:02→20:31)
[2019-11-10] MEDS: ATENOLOL 50 MG TABLET PO SCH (08:02)
[2019-11-10] MEDS: CHOLECALCIFEROL (VIT D3) 1,000 UNITS [25 MCG] TABLET PO SCH (08:03)
[2019-11-10] MEDS: BENZTROPINE MESYLATE 1 MG TABLET PO SCH ×2 (08:03→20:31)
[2019-11-10] MEDS: OMEGA-3/DHA/EPA/FISH OIL 1,000 MG CAPSULE PO SCH (08:03)
[2019-11-10] MEDS: ChlorproMAZINE HCL 100 MG TABLET PO SCH ×3 (08:03→20:31)
[2019-11-10] MEDS: ILOPERIDONE 4 MG TABLET PO SCH ×2 (08:04→20:32)
[2019-11-10] MEDS: BACITRACIN 28.4 GM OINTMENT TP SCH ×2 (08:05→16:36)
[2019-11-10 16:19] VITALS: BP 121/82
[2019-11-10] MEDS: SIMVASTATIN 20 MG TABLET PO SCH (20:31)
[2019-11-11 06:12] VITALS: BP 141/88
[2019-11-11 08:33] VITALS: BP 131/86
[2019-11-11] MEDS: OMEGA-3/DHA/EPA/FISH OIL 1,000 MG CAPSULE PO SCH (09:30)
[2019-11-11] MEDS: DIVALPROEX SODIUM 500 MG DR TABLET PO SCH ×2 (09:30→20:30)
[2019-11-11] MEDS: BENZTROPINE MESYLATE 1 MG TABLET PO SCH ×2 (09:31→20:30)
[2019-11-11] MEDS: ChlorproMAZINE HCL 100 MG TABLET PO SCH ×3 (09:31→20:30)
[2019-11-11] MEDS: ATENOLOL 50 MG TABLET PO SCH (09:31)
[2019-11-11] MEDS: CHOLECALCIFEROL (VIT D3) 1,000 UNITS [25 MCG] TABLET PO SCH (09:31)
[2019-11-11] MEDS: ILOPERIDONE 4 MG TABLET PO SCH ×2 (09:32→20:30)
[2019-11-11] MEDS: BACITRACIN 28.4 GM OINTMENT TP SCH ×2 (10:05→16:55)
[2019-11-11 16:04] VITALS: BP 110/68
[2019-11-11] MEDS: SIMVASTATIN 20 MG TABLET PO SCH (20:30)
[2019-11-12 06:19] VITALS: BP 121/78
[2019-11-12 08:21] VITALS: BP 121/72
[2019-11-12] MEDS: ATENOLOL 50 MG TABLET PO SCH (09:07)
[2019-11-12] MEDS: ChlorproMAZINE HCL 100 MG TABLET PO SCH ×3 (09:07→20:40)
[2019-11-12] MEDS: DIVALPROEX SODIUM 500 MG DR TABLET PO SCH ×2 (09:07→20:40)
[2019-11-12] MEDS: CHOLECALCIFEROL (VIT D3) 1,000 UNITS [25 MCG] TABLET PO SCH (09:07)
[2019-11-12] MEDS: OMEGA-3/DHA/EPA/FISH OIL 1,000 MG CAPSULE PO SCH (09:07)
[2019-11-12] MEDS: BENZTROPINE MESYLATE 1 MG TABLET PO SCH ×2 (09:07→20:40)
[2019-11-12] MEDS: ILOPERIDONE 4 MG TABLET PO SCH ×2 (09:08→20:40)
[2019-11-12] MEDS: BACITRACIN 28.4 GM OINTMENT TP SCH ×2 (09:13→16:28)
[2019-11-12 16:32] VITALS: BP 121/76
[2019-11-12] MEDS: SIMVASTATIN 20 MG TABLET PO SCH (20:40)
[2019-11-13 05:45] VITALS: BP 117/79
[2019-11-13 08:13] VITALS: BP 112/67
[2019-11-13] MEDS: CHOLECALCIFEROL (VIT D3) 1,000 UNITS [25 MCG] TABLET PO SCH (08:51)
[2019-11-13] MEDS: ChlorproMAZINE HCL 100 MG TABLET PO SCH ×3 (08:51→21:11)
[2019-11-13] MEDS: BENZTROPINE MESYLATE 1 MG TABLET PO SCH ×2 (08:51→21:11)
[2019-11-13] MEDS: ATENOLOL 50 MG TABLET PO SCH (08:51)
[2019-11-13] MEDS: ILOPERIDONE 4 MG TABLET PO SCH ×2 (08:51→21:11)
[2019-11-13] MEDS: OMEGA-3/DHA/EPA/FISH OIL 1,000 MG CAPSULE PO SCH (08:51)
[2019-11-13] MEDS: DIVALPROEX SODIUM 500 MG DR TABLET PO SCH ×2 (08:51→21:11)
[2019-11-13] MEDS: BACITRACIN 28.4 GM OINTMENT TP SCH ×2 (09:10→16:57)
[2019-11-13 16:17] VITALS: BP 124/85
[2019-11-13] MEDS: SIMVASTATIN 20 MG TABLET PO SCH (21:11)
[2019-11-14 00:31] VITALS: BP 114/73
[2019-11-14 08:07] VITALS: BP 120/82
[2019-11-14] MEDS: BENZTROPINE MESYLATE 1 MG TABLET PO SCH ×2 (09:00→20:31)
[2019-11-14] MEDS: ChlorproMAZINE HCL 100 MG TABLET PO SCH ×3 (09:14→20:31)
[2019-11-14] MEDS: CHOLECALCIFEROL (VIT D3) 1,000 UNITS [25 MCG] TABLET PO SCH (09:14)
[2019-11-14] MEDS: ILOPERIDONE 4 MG TABLET PO SCH ×2 (09:14→20:31)
[2019-11-14] MEDS: DIVALPROEX SODIUM 500 MG DR TABLET PO SCH ×2 (09:15→20:31)
[2019-11-14] MEDS: OMEGA-3/DHA/EPA/FISH OIL 1,000 MG CAPSULE PO SCH (09:15)
[2019-11-14] MEDS: BACITRACIN 28.4 GM OINTMENT TP SCH ×2 (09:15→17:05)
[2019-11-14] MEDS: ATENOLOL 50 MG TABLET PO SCH (09:15)
[2019-11-14] MEDS: LORazepam 2 MG TABLET PO PRN (12:24)
[2019-11-14 16:02] VITALS: BP 112/63
[2019-11-14] MEDS: SIMVASTATIN 20 MG TABLET PO SCH (20:31)
[2019-11-15 05:35] VITALS: BP 110/71
[2019-11-15] MEDS: CHOLECALCIFEROL (VIT D3) 1,000 UNITS [25 MCG] TABLET PO SCH (08:53)
[2019-11-15] MEDS: ChlorproMAZINE HCL 100 MG TABLET PO SCH ×3 (08:53→20:32)
[2019-11-15] MEDS: ATENOLOL 50 MG TABLET PO SCH (08:53)
[2019-11-15] MEDS: DIVALPROEX SODIUM 500 MG DR TABLET PO SCH ×2 (08:53→20:32)
[2019-11-15] MEDS: OMEGA-3/DHA/EPA/FISH OIL 1,000 MG CAPSULE PO SCH (08:53)
[2019-11-15] MEDS: ILOPERIDONE 4 MG TABLET PO SCH ×2 (08:54→20:32)
[2019-11-15] MEDS: BACITRACIN 28.4 GM OINTMENT TP SCH ×2 (09:03→17:10)
[2019-11-15 09:04] VITALS: BP 99/78
[2019-11-15] MEDS: BENZTROPINE MESYLATE 1 MG TABLET PO SCH ×2 (09:06→20:32)
[2019-11-15 16:00] VITALS: BP 129/88
[2019-11-15] MEDS: SIMVASTATIN 20 MG TABLET PO SCH (20:32)
[2019-11-16 00:20] VITALS: BP 121/82
[2019-11-16 08:03] VITALS: BP 118/82
[2019-11-16] MEDS: OMEGA-3/DHA/EPA/FISH OIL 1,000 MG CAPSULE PO SCH (08:35)
[2019-11-16] MEDS: DIVALPROEX SODIUM 500 MG DR TABLET PO SCH ×2 (08:35→20:19)
[2019-11-16] MEDS: CHOLECALCIFEROL (VIT D3) 1,000 UNITS [25 MCG] TABLET PO SCH (08:35)
[2019-11-16] MEDS: ChlorproMAZINE HCL 100 MG TABLET PO SCH ×3 (08:35→20:19)
[2019-11-16] MEDS: BENZTROPINE MESYLATE 1 MG TABLET PO SCH ×2 (08:35→22:19)
[2019-11-16] MEDS: ATENOLOL 50 MG TABLET PO SCH (08:35)
[2019-11-16] MEDS: ILOPERIDONE 4 MG TABLET PO SCH ×2 (08:36→20:20)
[2019-11-16] MEDS: BACITRACIN 28.4 GM OINTMENT TP SCH (08:37)
[2019-11-16 16:11] VITALS: BP 118/70
[2019-11-16] MEDS: SIMVASTATIN 20 MG TABLET PO SCH (20:18)
[2019-11-17] VITALS: BP 102/66
[2019-11-17] MEDS: ATENOLOL 50 MG TABLET PO SCH (08:24)
[2019-11-17] MEDS: DIVALPROEX SODIUM 500 MG DR TABLET PO SCH ×2 (08:24→20:28)
[2019-11-17] MEDS: CHOLECALCIFEROL (VIT D3) 1,000 UNITS [25 MCG] TABLET PO SCH (08:24)
[2019-11-17] MEDS: OMEGA-3/DHA/EPA/FISH OIL 1,000 MG CAPSULE PO SCH (08:24)
[2019-11-17] MEDS: BENZTROPINE MESYLATE 1 MG TABLET PO SCH ×2 (08:24→20:28)
[2019-11-17] MEDS: ChlorproMAZINE HCL 100 MG TABLET PO SCH ×3 (08:24→20:28)
[2019-11-17] MEDS: ILOPERIDONE 4 MG TABLET PO SCH ×2 (08:25→20:29)
[2019-11-17 08:34] VITALS: BP 129/71
[2019-11-17 17:19] VITALS: BP 104/72
[2019-11-17] MEDS: SIMVASTATIN 20 MG TABLET PO SCH (20:28)
[2019-11-18 00:05] VITALS: BP 126/74
[2019-11-18] MEDS: ATENOLOL 50 MG TABLET PO SCH (08:05)
[2019-11-18] MEDS: BENZTROPINE MESYLATE 1 MG TABLET PO SCH ×2 (08:05→20:05)
[2019-11-18] MEDS: CHOLECALCIFEROL (VIT D3) 1,000 UNITS [25 MCG] TABLET PO SCH (08:05)
[2019-11-18] MEDS: DIVALPROEX SODIUM 500 MG DR TABLET PO SCH ×2 (08:05→20:06)
[2019-11-18] MEDS: ChlorproMAZINE HCL 100 MG TABLET PO SCH ×3 (08:06→20:05)
[2019-11-18] MEDS: OMEGA-3/DHA/EPA/FISH OIL 1,000 MG CAPSULE PO SCH (08:06)
[2019-11-18] MEDS: ILOPERIDONE 4 MG TABLET PO SCH ×2 (08:06→20:06)
[2019-11-18 08:09] VITALS: BP 121/73
[2019-11-18 16:03] VITALS: BP 107/62
[2019-11-18] MEDS: SIMVASTATIN 20 MG TABLET PO SCH (20:05)
[2019-11-19 06:33] VITALS: BP 120/76
[2019-11-19 08:07] VITALS: BP 121/79
[2019-11-19] MEDS: BENZTROPINE MESYLATE 1 MG TABLET PO SCH ×2 (08:38→20:35)
[2019-11-19] MEDS: DIVALPROEX SODIUM 500 MG DR TABLET PO SCH ×2 (08:38→20:35)
[2019-11-19] MEDS: ChlorproMAZINE HCL 100 MG TABLET PO SCH ×3 (08:38→20:35)
[2019-11-19] MEDS: ATENOLOL 50 MG TABLET PO SCH (08:39)
[2019-11-19] MEDS: ILOPERIDONE 4 MG TABLET PO SCH ×2 (08:39→20:35)
[2019-11-19] MEDS: CHOLECALCIFEROL (VIT D3) 1,000 UNITS [25 MCG] TABLET PO SCH (08:39)
[2019-11-19] MEDS: OMEGA-3/DHA/EPA/FISH OIL 1,000 MG CAPSULE PO SCH (08:39)
[2019-11-19 16:01] VITALS: BP 111/71
[2019-11-19] MEDS: SIMVASTATIN 20 MG TABLET PO SCH (20:35)
[2019-11-20 00:13] VITALS: BP 110/72
[2019-11-20 08:02] VITALS: BP 109/68
[2019-11-20] MEDS: CHOLECALCIFEROL (VIT D3) 1,000 UNITS [25 MCG] TABLET PO SCH (08:36)
[2019-11-20] MEDS: DIVALPROEX SODIUM 500 MG DR TABLET PO SCH ×2 (08:36→20:29)
[2019-11-20] MEDS: BENZTROPINE MESYLATE 1 MG TABLET PO SCH ×2 (08:36→20:30)
[2019-11-20] MEDS: ATENOLOL 50 MG TABLET PO SCH (08:36)
[2019-11-20] MEDS: ChlorproMAZINE HCL 100 MG TABLET PO SCH ×3 (08:37→20:30)
[2019-11-20] MEDS: ILOPERIDONE 4 MG TABLET PO SCH ×2 (08:37→20:30)
[2019-11-20] MEDS: OMEGA-3/DHA/EPA/FISH OIL 1,000 MG CAPSULE PO SCH (08:37)
[2019-11-20 16:04] VITALS: BP 107/62
[2019-11-20] MEDS: SIMVASTATIN 20 MG TABLET PO SCH (20:29)
[2019-11-21 03:01] VITALS: BP 110/71
[2019-11-21 08:13] VITALS: BP 126/75
[2019-11-21] MEDS: CHOLECALCIFEROL (VIT D3) 1,000 UNITS [25 MCG] TABLET PO SCH (08:16)
[2019-11-21] MEDS: DIVALPROEX SODIUM 500 MG DR TABLET PO SCH ×2 (08:16→20:32)
[2019-11-21] MEDS: OMEGA-3/DHA/EPA/FISH OIL 1,000 MG CAPSULE PO SCH (08:16)
[2019-11-21] MEDS: BENZTROPINE MESYLATE 1 MG TABLET PO SCH ×2 (08:16→20:32)
[2019-11-21] MEDS: ATENOLOL 50 MG TABLET PO SCH (08:16)
[2019-11-21] MEDS: ChlorproMAZINE HCL 100 MG TABLET PO SCH ×3 (08:17→20:32)
[2019-11-21] MEDS: ILOPERIDONE 4 MG TABLET PO SCH ×2 (08:17→20:33)
[2019-11-21 16:08] VITALS: BP 101/68
[2019-11-21] MEDS: SIMVASTATIN 20 MG TABLET PO SCH (20:32)
[2019-11-22 05:50] VITALS: BP 129/72
[2019-11-22 08:15] VITALS: BP 122/80
[2019-11-22] MEDS: BENZTROPINE MESYLATE 1 MG TABLET PO SCH ×2 (08:42→20:22)
[2019-11-22] MEDS: CHOLECALCIFEROL (VIT D3) 1,000 UNITS [25 MCG] TABLET PO SCH (08:42)
[2019-11-22] MEDS: DIVALPROEX SODIUM 500 MG DR TABLET PO SCH ×2 (08:42→20:22)
[2019-11-22] MEDS: ILOPERIDONE 4 MG TABLET PO SCH ×2 (08:42→20:22)
[2019-11-22] MEDS: ATENOLOL 50 MG TABLET PO SCH (08:42)
[2019-11-22] MEDS: OMEGA-3/DHA/EPA/FISH OIL 1,000 MG CAPSULE PO SCH (08:42)
[2019-11-22] MEDS: ChlorproMAZINE HCL 100 MG TABLET PO SCH ×3 (08:43→20:22)
[2019-11-22 16:21] VITALS: BP 122/72
[2019-11-22] MEDS: SIMVASTATIN 20 MG TABLET PO SCH (20:22)
[2019-11-23 06:48] VITALS: BP 125/83
[2019-11-23] MEDS: CHOLECALCIFEROL (VIT D3) 1,000 UNITS [25 MCG] TABLET PO SCH (08:15)
[2019-11-23] MEDS: ChlorproMAZINE HCL 100 MG TABLET PO SCH ×3 (08:16→20:29)
[2019-11-23] MEDS: DIVALPROEX SODIUM 500 MG DR TABLET PO SCH ×2 (08:16→20:28)
[2019-11-23] MEDS: BENZTROPINE MESYLATE 1 MG TABLET PO SCH ×2 (08:16→20:29)
[2019-11-23] MEDS: OMEGA-3/DHA/EPA/FISH OIL 1,000 MG CAPSULE PO SCH (08:16)
[2019-11-23] MEDS: ATENOLOL 50 MG TABLET PO SCH (08:16)
[2019-11-23] MEDS: ILOPERIDONE 4 MG TABLET PO SCH ×2 (08:17→20:28)
[2019-11-23 08:30] VITALS: BP 116/80
[2019-11-23 16:02] VITALS: BP 109/68
[2019-11-23] MEDS: SIMVASTATIN 20 MG TABLET PO SCH (20:29)
[2019-11-24 00:26] VITALS: BP 110/72
[2019-11-24] MEDS: DIVALPROEX SODIUM 500 MG DR TABLET PO SCH ×2 (08:50→20:30)
[2019-11-24] MEDS: ILOPERIDONE 4 MG TABLET PO SCH ×2 (08:50→20:30)
[2019-11-24] MEDS: CHOLECALCIFEROL (VIT D3) 1,000 UNITS [25 MCG] TABLET PO SCH (08:50)
[2019-11-24] MEDS: ATENOLOL 50 MG TABLET PO SCH (08:50)
[2019-11-24] MEDS: OMEGA-3/DHA/EPA/FISH OIL 1,000 MG CAPSULE PO SCH (08:50)
[2019-11-24] MEDS: BENZTROPINE MESYLATE 1 MG TABLET PO SCH ×2 (08:50→20:30)
[2019-11-24] MEDS: ChlorproMAZINE HCL 100 MG TABLET PO SCH ×3 (08:56→20:30)
[2019-11-24 08:58] VITALS: BP 123/91
[2019-11-24 16:04] VITALS: BP 120/76
[2019-11-24] MEDS: SIMVASTATIN 20 MG TABLET PO SCH (20:30)
[2019-11-25 00:02] VITALS: BP 111/83
[2019-11-25 08:03] VITALS: BP 114/85
[2019-11-25] MEDS: BENZTROPINE MESYLATE 1 MG TABLET PO SCH ×2 (08:12→20:33)
[2019-11-25] MEDS: ILOPERIDONE 4 MG TABLET PO SCH ×2 (08:13→20:33)
[2019-11-25] MEDS: DIVALPROEX SODIUM 500 MG DR TABLET PO SCH ×2 (08:13→20:33)
[2019-11-25] MEDS: ATENOLOL 50 MG TABLET PO SCH (08:14)
[2019-11-25] MEDS: OMEGA-3/DHA/EPA/FISH OIL 1,000 MG CAPSULE PO SCH (08:14)
[2019-11-25] MEDS: ChlorproMAZINE HCL 100 MG TABLET PO SCH ×3 (08:14→20:33)
[2019-11-25] MEDS: CHOLECALCIFEROL (VIT D3) 1,000 UNITS [25 MCG] TABLET PO SCH (08:14)
[2019-11-25] MEDS: SIMVASTATIN 20 MG TABLET PO SCH (20:33)
[2019-11-26 00:17] VITALS: BP 119/76
[2019-11-26 08:21] VITALS: BP 116/71
[2019-11-26] MEDS: BENZTROPINE MESYLATE 1 MG TABLET PO SCH (08:27)
[2019-11-26] MEDS: ChlorproMAZINE HCL 100 MG TABLET PO SCH ×2 (08:27→16:29)
[2019-11-26] MEDS: DIVALPROEX SODIUM 500 MG DR TABLET PO SCH (08:27)
[2019-11-26] MEDS: ATENOLOL 50 MG TABLET PO SCH (08:28)
[2019-11-26] MEDS: CHOLECALCIFEROL (VIT D3) 1,000 UNITS [25 MCG] TABLET PO SCH (08:28)
[2019-11-26] MEDS: OMEGA-3/DHA/EPA/FISH OIL 1,000 MG CAPSULE PO SCH (08:28)
[2019-11-26] MEDS: ILOPERIDONE 4 MG TABLET PO SCH (08:29)
[2019-11-26] MEDS ORDERED: OMEG100015 PO (15:18)
[2019-11-26] MEDS ORDERED: SIMV-260 PO (15:19)
[2019-11-26] MEDS ORDERED: BENZ1TAB10 PO (15:43)
[2019-11-26] MEDS ORDERED: DIVA-112 PO (15:43)
[2019-11-26 16:00] VITALS: BP 110/67
== END 2019-11-26 17:05 | disposition home or self-care (01) | DRG 885 ==
LOC: B2S 16:55 → B2X 09-28 10:56
DX: F25.0 Schizoaffective disorder, bipolar type (principal); F79 Unspecified intellectual disabilities; R45.851 Suicidal ideations; I10 Essential (primary) hypertension; J45.909 Unspecified asthma, uncomplicated; E87.6 Hypokalemia; E78.5 Hyperlipidemia, unspecified; F25.9 Schizoaffective disorder, unspecified; K21.9 Gastro-esophageal reflux disease without esophagitis; K59.00 Constipation, unspecified; F41.9 Anxiety disorder, unspecified; Z03.818 Encounter for observation for suspected exposure to other biological agents ruled out; Z79.899 Other long term (current) drug therapy
CPT/HCPCS: 83036; 84132; 84436; 84439; 84443; J1200; J1630; J2060; J3230